=== PATIENT | female | born 1935 | race Caucasian/White ===

== ENCOUNTER 2017-06-08 11:00 | Outpatient (RCR) | payer MEDICARE, SELFPAY ==
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
--- NOTE | 2017-05-12 10:37 | HP.PTDCSUM_ITS ---
HP - PT D/C Summary It has been my pleasure to treat RAE SANDHU under orders from Mary Krueger DO , for the diagnosis of BACK PAIN for a total of 8 visit(s). Discharge Date: Please see the following information for a summary of their discharge status. - Subjective Subjective: PATIENT REPORTS SHE HAS BEEN ON HER FEET A LOT THIS WEEK AND BY THE END OF THE DAY SHE HAS MILD LOW BACK PAIN LEFT > RIGHT. PATIENT REPORTS SHE HAS A HEP AND SHE KNOWS HOW TO DO THEM AND THEY ARE HELPING. SHE REPORTS THE MACHINES FEEL GOOD AND SHE WANTS TO BE MORE ACTIVE A HEALTH AND WELLNESS MEMBER NOW. LBP AT ITS WORST IS 6/10 WITH THINGS LIKE VACUUMING AND RUNNING UP AND DOWN THE STAIRS. NO LONGER HAVING JABBING PAINS IN THIGH. - Pain LBP Pain Intensity (Out of 10): 0 - Overall Improvement % Improvement: 30 - Objective Objective/Function: UPON EXAM: Motor deficit: NEGRITO LE'S 5/5 WITH MMT. Sensory deficit: NEGRITO LE LIGHT TOUCH SENSATION INTACT AND SYMMETRICAL. ROM deficit: WFL. Reflexes: 1/2 NEGRITO. Dural Signs: NEGATIVE NEGRITO LE'S. Lumbar mvmt loss: flex - MIN. ext - MOD TO NASEEM. R SG - MOD. L SG - MOD. Core strength: POOR. Palpation: PATIENT IS NOT TENDER WITH PALPATION OF THE LUMBAR SPINE OR SACRAM BUT HER PARASPINALS ARE VERY TIGHT. PATIENT IS MAKING GOOD PROGRESS BUT IS NOT INDEP WITH A GYM EX PROGRAM YET. RECOMMEND CONTINUED FORMAL PT FOR 3-4 VISITS TO PROGRESS AND REINFORCE SAFE GYM PROGRAM A HEALTH AND WELLNESS MEMBER. PATIENT DENIES PAIN WITH ALL TESTING TODAY. - Goals Goal 1:: DECREASE C/O LOW BACK AND RIGHT THIGH PAIN Goal Progress: Progressing Goal 2:: IMPROVE STANDING, WALKING, YARD WORK, HOUSEWORK, AND VOLUNTEER WORK FUNCTION Goal Progress: Progressing Goal 3:: INSTRUCT IN PROPHYLAXIS Goal Progress: Progressing - Plan Plan: CONT PT X 4 VISITS FOR GYM EX AND HEP PROGRESSION TO HELP MEET SET GOALS PER ORIGINAL POC. - D/C Information If there are questions or concerns regarding this patient's physical therapy, please feel free to call me at [phone]. Thank you for the referral of this patient. Sincerely, Isabel Pink
--- NOTE | 2017-05-12 10:50 | HP.PTREVAL_ITS ---
Mary Krueger, DO, It has been my pleasure to treat RAE SANDHU over the last 8 visits for BACK PAIN. Please see the progress note below for an update on the physical therapy plan of care! Subjective: PATIENT REPORTS SHE HAS BEEN ON HER FEET A LOT THIS WEEK AND BY THE END OF THE DAY SHE HAS MILD LOW BACK PAIN LEFT > RIGHT. PATIENT REPORTS SHE HAS A HEP AND SHE KNOWS HOW TO DO THEM AND THEY ARE HELPING. SHE REPORTS THE MACHINES FEEL GOOD AND SHE WANTS TO BE MORE ACTIVE A HEALTH AND WELLNESS MEMBER NOW. LBP AT ITS WORST IS 6/10 WITH THINGS LIKE VACUUMING AND RUNNING UP AND DOWN THE STAIRS. NO LONGER HAVING JABBING PAINS IN THIGH. Objective/Function: UPON EXAM: Motor deficit: NEGRITO LE'S 5/5 WITH MMT. Sensory deficit: NEGRITO LE LIGHT TOUCH SENSATION INTACT AND SYMMETRICAL. ROM deficit: WFL. Reflexes: 1/2 NEGRITO. Dural Signs: NEGATIVE NEGRITO LE'S. Lumbar mvmt loss: flex - MIN. ext - MOD TO NASEEM. R SG - MOD. L SG - MOD. Core strength: POOR. Palpation: PATIENT IS NOT TENDER WITH PALPATION OF THE LUMBAR SPINE OR SACRAM BUT HER PARASPINALS ARE VERY TIGHT. PATIENT IS MAKING GOOD PROGRESS BUT IS NOT INDEP WITH A GYM EX PROGRAM YET. RECOMMEND CONTINUED FORMAL PT FOR 3-4 VISITS TO PROGRESS AND REINFORCE SAFE GYM PROGRAM A HEALTH AND WELLNESS MEMBER. PATIENT DENIES PAIN WITH ALL TESTING TODAY. Plan Plan: CONT PT X 4 VISITS FOR GYM EX AND HEP PROGRESSION TO HELP MEET SET GOALS PER ORIGINAL POC. Goals Goal 1:: DECREASE C/O LOW BACK AND RIGHT THIGH PAIN Goal Time Frame: 4-6 Weeks Goal Progress: Progressing Goal 2:: IMPROVE STANDING, WALKING, YARD WORK, HOUSEWORK, AND VOLUNTEER WORK FUNCTION Goal Time Frame: 4-6 Weeks Goal Progress: Progressing Goal 3:: INSTRUCT IN PROPHYLAXIS Goal Time Frame: 4-6 Weeks Goal Progress: Progressing Anticipated Interventions Patient/Client Instruction: Educate patient on: Condition, Plan of Care, Risk Factors, Benefits of Fitness Program For the Purpose of:: To improve self management Therapeutic Exercise to Include: Strength training, Body mechanics, Postural training, Dynamic Lumbar Stabilization For the Purpose of:: To improve ability of physical actions for home/community/ work/leisure Cryotherapy (ice pack, ice massage): Yes Thermo therapy (hot pack): Yes Ultrasound (thermal/non thermal): Yes For the Purpose of:: To decrease pain, To decrease swelling/inflammation, To increase ROM Please do not hesitate to contact me at [phone] by phone or Fax: if you have questions or concerns regarding this new plan of care! Sincerely, Isabel Pink
--- NOTE | 2017-06-08 11:39 | HP.PTDCSUM_ITS ---
HP - PT D/C Summary It has been my pleasure to treat RAE SANDHU under orders from Mary Krueger DO , for the diagnosis of BACK PAIN for a total of 15 visit(s). Discharge Date: 06/08/17 Please see the following information for a summary of their discharge status. - Subjective Subjective: PATIENT REPORTS SHE IS DOING REALLY GOOD - Pain LBP Pain Intensity (Out of 10): 0 - Overall Improvement % Improvement: 80 - Objective Objective/Function: ALL GOALS MET. PATIENT IS DOING MUCH BETTER AND READY TO START INDEP EX A HEALTH AND WELLNESS MEMBER. - Goals Goal 1:: DECREASE C/O LOW BACK AND RIGHT THIGH PAIN Goal Progress: Progressing Goal 2:: IMPROVE STANDING, WALKING, YARD WORK, HOUSEWORK, AND VOLUNTEER WORK FUNCTION Goal Progress: Progressing Goal 3:: INSTRUCT IN PROPHYLAXIS Goal Progress: Progressing - Plan Plan: D/C TO INDEP EX. PATIENT AGREEABLE. - D/C Information If there are questions or concerns regarding this patient's physical therapy, please feel free to call me at [phone]. Thank you for the referral of this patient. Sincerely, Isabel Pink
== END 2017-06-08 19:00 | disposition home or self-care (01) ==
LOC: PT 11:00
PROVIDERS: Family Provider Nurse Practitioner; PCP Nurse Practitioner; Visit Provider Internal Medicine
DX: M54.9 Dorsalgia, unspecified (principal)
CPT/HCPCS: 97110; 97113; 97162; 97530; G8978; G8979

== ENCOUNTER → 2017-09-13 08:15 | Outpatient (CLI) | payer MEDICARE, SELFPAY ==
--- NOTE | 2017-09-13 08:17 | BD_ITS ---
STUDY: DUAL ENERGY X-RAY ABSORPTIOMETRY / DXA REASON FOR EXAM: Female, 82 years old. Postmenopausal female. Past history of hormone therapy. TECHNIQUE: Bone Mineral Density (BMD) measurements of lumbar spine and bilateral hips were obtained. COMPARISON: None. FINDINGS: Lumbar Spine (L1-L4): g/cm2 (0.861) / T-score (-2.7) / Z-score (-0.8) Findings are suggestive of osteoporosis with a high fracture risk. Left Femur Total: g/cm2 (0.793) / T-score (-1.7) / Z-score (0.4) Left Femoral Neck: g/cm2 (0.648) / T-score (-2.8) / Z-score (0.6) Right Femur Total: g/cm2 (0.811) / T-score (-1.6) / Z-score (0.5) Right Femoral Neck: g/cm2 (0.692) / T-score (-2.5) / Z-score (0.3) BD/Dexa Bone Density Study IMPRESSION: The patient is considered osteoporotic as outlined below according to World Eliseo Organization (WHO) criteria with a high fracture risk. Reference Information: The T-score is the number of standard deviations above or below the standard which is normal for young adults at their peak bone mineral density. The World Health Organization (WHO) interprets the T-scores as follows: Above -1 Normal bone density Between -1 and -2.5 Osteopenia Equal to / or below -2.5 Osteoporosis As a practical clinical guideline, osteopenia may be graded as follows: Mild -1 through -1.5 Moderate -1.6 through -2.0 Severe -2.1 through -2.4 The Z-score is the number of standard deviations above or below age-matched controls. A Z-score of less than -1.5 would be considered abnormal. References: 1. NIH Osteoporosis and Related Bone Diseases http://www.osteo.org 2. International Society for Clinical Densitometry http://www.iscd.org 3. National Osteoporosis Foundation http://www.nof.org Electronically Signed: Stuart Barrientos DO at 8:54 EDT Tel [phone], Service support ,
--- NOTE | 2017-09-13 08:17 | BI_ITS ---
MAMMOGRAPHY - BILATERAL SCREENING REASON FOR EXAM: Female, 82 years old. Routine annual screening examination. PERTINENT HISTORY: NO FAM HX - RT FATTY TUMOR REMOVED AGE 26 - BILAT INVERTED NIPPLES ALWAYS TECHNIQUE: Digital bilateral breast shona (3D mammographic acquisition) in the CC and MLO projections. 2-D mediolateral oblique (MLO) and craniocaudad (CC) views of both breasts were obtained. CAD: Full Field Digital Mammography with Computer Added Detection was performed. COMPARISON: None. FINDINGS: Breast Composition: The breasts are heterogeneously dense, which may obscure small masses. There are no dominant masses or suspicious calcifications. No other significant abnormalities are identified. BI/SCREENING MAMM (CAD), BILAT IMPRESSION: Stable bilateral screening mammogram. Yearly follow-up mammogram recommended. (A) ASSESSMENT CATEGORY: BIRADS Category 2: Benign. A letter regarding these results will be sent to the patient by the facility within 30 days. Approximately 10% of breast cancers are not detected by mammography. A normal mammogram should not delay biopsy of a clinically suspicious abnormality. [id number] Electronically Signed: Alexandria Rowan MD at 16:16 EDT Tel , Service support ,
== END ==
PROVIDERS: Family Provider Internal Medicine; PCP Internal Medicine; Visit Provider Internal Medicine
DX: Z12.31 Encounter for screening mammogram for malignant neoplasm of breast (principal); Z78.0 Asymptomatic menopausal state
CPT/HCPCS: 77063; 77067; 77080

== ENCOUNTER → 2017-10-23 12:52 | Outpatient (CLI) | payer MEDICARE, SELFPAY ==
--- NOTE | 2017-10-23 12:52 | DT_ITS ---
This patient was seen during an EMR downtime October 16, 2017 - October 23, 2017. This patient may have a combination of paper and electronic documentation or all paper documentation. All documentation is viewable within the e-chart portion of [facility] for each patient visit.
[2017-10-23 15:17] LABS: Absolute Lymphocyte Count 2.92 X10^3/ul (0.83-4.51); Basophil% 1.3 % (0-1); Eosinophil# 0.22 X10^3/uL; Eosinophils% 2.8 % (0-5); Hematocrit 41.7 % (37-47); Hemoglobin 14.3 g/dl (12.0-15.0); Lymphocyte # 2.92 X10^3/ul (4.0); Mean Corp Hgb Conc 34.3 g/gl (32-36); Mean Corpuscular Hgb 32.2 pg (27.0-32.0); Mean Corpuscular Volume 93.9 fL (81-99); Monocyte# 0.68 X10^3/uL; Monocyte% 8.6 % (0-10); Neutrophil # 3.97 X10^3/uL (2.7-7.7); Neutrophil % 50.2 % (47-70); Platelet Count 341 K/mm3 (150-450); RBC Distribution Width CV 12.7 % (11.6-14.6); RBC Distribution Width SD 43.4 fl (35.1-43.9); Red Blood Count 4.44 M/mm3 (4.2-5.4); White Blood Count 7.9 K/mm3 (4.4-11.0)
[2017-10-23 15:19] LABS: POSITIVE COUNT NO; POSITIVE DIFFERENTIAL NO; POSITIVE MORPHOLOGY NO
[2017-10-23 15:48] LABS: Vitamin B12 436 pg/mL (211-911)
[2017-10-23 15:58] LABS: AST(SGOT) 15 U/L (15-37); Alanine Aminotransfer ALT/SGPT 19 U/L (13-56); Albumin, Serum 3.8 g/dL (3.2-5.0); Alkaline Phosphatase 60 U/L (45-117); Anion Gap 10 (5-15); BUN 27 mg/dL (7-18); BUN/Creat Ratio 22.9 RATIO (10-20); Calcium,Total 9.6 mg/dL (8.5-10.1); Chloride 109 mmol/L (98-107); Creatinine, Serum 1.18 mg/dL (0.55-1.02); EST Glomerular Filtration Rate 47 mL/min (>60); Est Glom Filt Rate - Afr Amer 56 mL/min (>60); Globulin 3.7 g/dL (2.2-4.2); Glucose 73 mg/dL (74-106); Potassium 3.9 mmol/L (3.5-5.1); Protein, Total 7.5 g/dL (6.4-8.2); Sodium Level 143 mmol/L (136-145); Thyroid Stim Hormone (TSH) 2.75 uIU/mL (0.358-3.74)
== END ==
PROVIDERS: Family Provider Internal Medicine; PCP Internal Medicine; Visit Provider Internal Medicine
DX: R25.1 Tremor, unspecified (principal)
CPT/HCPCS: 36415; 80053; 82607; 84443; 85025

== ENCOUNTER → 2018-02-27 08:45 | Outpatient (CLI) | payer MEDICARE, SELFPAY ==
[2018-02-27 10:11] LABS: AST(SGOT) 12 U/L (15-37); Alanine Aminotransfer ALT/SGPT 21 U/L (13-56); Albumin, Serum 3.5 g/dL (3.2-5.0); Alkaline Phosphatase 70 U/L (45-117); Cholesterol 139 mg/dL (200); Globulin 3.5 g/dL (2.2-4.2); High Density Lipoprotein 55 mg/dL; Triglycerides 85 mg/dL; Very Low Density Lipoprotein 17 mg/dL (5-40)
== END ==
PROVIDERS: Family Provider Internal Medicine; PCP Internal Medicine; Referring Provider Internal Medicine Cardiovascular Disease; Visit Provider Internal Medicine Cardiovascular Disease
DX: I65.23 Occlusion and stenosis of bilateral carotid arteries (principal); E78.5 Hyperlipidemia, unspecified
CPT/HCPCS: 36415; 80061; 80076

== ENCOUNTER → 2018-03-27 08:26 | Outpatient (CLI) | payer MEDICARE, SELFPAY ==
--- NOTE | 2018-03-27 08:28 | CDU_ITS ---
Reason For Study: Bilateral carotid artery stenosis Rt. Velocities/BP Lt. Velocities/BP Prox CCA 72.7/15.8 cm/sec. Prox CCA 71.9/15.7 cm/sec. Mid CCA 66.3/18.2 cm/sec. Mid CCA 61.3/17.3 cm/sec. Dist CCA 65.1/17 cm/sec. Dist CCA 56.6/15.3 cm/sec. Prox ICA 56.7/17.1 cm/sec. Prox ICA 61.7/14.5 cm/sec. Mid ICA 50.5/14.8 cm/sec. Mid ICA 60.6/19.5 cm/sec. Dist ICA 88.5/22.9 cm/sec. Dist ICA 76.8/25.6 cm/sec. Rt. ICA/CCA = 1.33. Lt. ICA/CCA = 1.25. Prox ECA 83.3/12.3 cm/sec. Prox ECA 53.8/15.6 cm/sec. Rt. Vert. 45.2/13.4 cm/sec. Lt. Vert. 37.3/14.1 cm/sec. Right Extracranial There is intimal thickening but no significant atherosclerotic plaque noted in the right common carotid artery. There is intimal thickening but no significant atherosclerotic plaque noted in the right internal carotid artery. There is no significant atherosclerotic plaque noted in the right external carotid artery. Antegrade flow is noted in the right vertebral artery. Left Extracranial There is intimal thickening but no significant atherosclerotic plaque noted in the left common carotid artery. There is heterogeneous, irregular atherosclerotic plaque noted in the left internal carotid artery. There is intimal thickening but no significant atherosclerotic plaque noted in the left external carotid artery. The left external carotid artery is not well visualized. Antegrade flow is noted in the left vertebral artery. Procedure Carotid Duplex [id number]. Exam performed in department. Interpretation Summary Mild (<50%) stenosis right extracranial internal carotid. Mild (<50%) stenosis left extracranial internal carotid. Flow within the vertebral arteries is antegrade bilaterally. Ordering Physician: Mary Krueger Referring Physician: Mary Krueger Performed By: Nereida Kamara RVT and Student
== END ==
PROVIDERS: Family Provider Internal Medicine; PCP Internal Medicine; Referring Provider Internal Medicine; Visit Provider Internal Medicine
DX: I65.23 Occlusion and stenosis of bilateral carotid arteries (principal)
CPT/HCPCS: 93880

== ENCOUNTER → 2018-04-18 11:36 | Outpatient (CLI) | payer MEDICARE, SELFPAY ==
--- NOTE | 2018-04-18 11:39 | RAD_ITS ---
STUDY: X-RAY CHEST REASON FOR EXAM: Female, 83 years old. One-week history of wheezing and cough. TECHNIQUE: PA and lateral views of the chest. COMPARISON: Comparison is made with prior study dated August 12, 2005. FINDINGS: Hyperinflation. Scattered calcified granulomas. Increased linear markings in the right midlung. This may represent early atelectasis and/or early infiltrate. Follow-up is recommended. Scattered calcified granulomas. Blunting of the costophrenic angles posteriorly. Normal size heart. Normal mediastinum and jose. Normal visualized pulmonary arteries. There is atherosclerotic calcification of the aortic arch with tortuosity. There are diffuse degenerative changes of the visualized thoracic spine. Normal visualized ribs, clavicles, and shoulders. There is no demonstrated abnormality of the visualized soft tissue structures of the upper abdomen. RAD/Chest PA and Lateral IMPRESSION: Increased markings in the right mid lung. Follow-up is recommended. Electronically Signed: Huy Barclay MD at 12:44 EST Tel [phone], Service support ,
== END ==
PROVIDERS: Family Provider Internal Medicine; PCP Internal Medicine; Referring Provider Internal Medicine; Visit Provider Internal Medicine
DX: R05 Cough (principal)
CPT/HCPCS: 71046

== ENCOUNTER → 2018-08-06 09:42 | Outpatient (CLI) | payer MEDICARE, SELFPAY ==
--- NOTE | 2018-08-06 09:47 | NM_ITS ---
CLINICAL: 83-year-old female with reported history of clinical hyperparathyroidism. 99m Tc SESTAMIBI DUAL PHASE PARATHYROID SCINTIGRAPHY COMPARISON: None available FINDINGS: Following the intravenous administration of 25.7 mCi of 99m Tc sestamibi, image acquisitions of the anterior neck at 20 minutes and 2.0 hours post radiopharmaceutical provision reveal: 1. Immediate static blood pool acquisitions demonstrate uniform distribution of the radiopharmaceutical throughout the right-left lobes of a U-shaped thyroid gland. 2. Delayed images depict symmetric and incomplete washout of the radiotracer from the visualized right-left thyroid parenchyma with no regions of focal persistent tracer uptake identified. NM/Parathyroid Scan IMPRESSION: 1. NEGATIVE 99m Tc SESTAMIBI PARATHYROID IMAGING DUAL PHASE EXAMINATION. 2. There is no definitive scintigraphic evidence of parathyroid adenoma on the current evaluation. Electronically Signed: Js Elizabeth DO at 23:22 EDT Tel , Service support ,
== END ==
PROVIDERS: Family Provider Internal Medicine; PCP Internal Medicine; Referring Provider Internal Medicine; Visit Provider Internal Medicine
DX: E21.3 Hyperparathyroidism, unspecified (principal)
CPT/HCPCS: 78070; A9500

== ENCOUNTER → 2018-09-14 | Outpatient (CLI) | payer MEDICARE, SELFPAY ==
[2018-02-02 09:52] VITALS: BMI 29.0
--- NOTE | 2018-09-14 10:49 | BI_ITS ---
MAMMOGRAPHY - BILATERAL SCREENING 3-D TOMOSYNTHESIS REASON FOR EXAM: Female, 83 years old. Bilateral Screening 3-D tomosynthesis PERTINENT HISTORY: No significant family history. TECHNIQUE: 2-D mammograms and 3-D Tomosynthesis of the breast (s) were performed. CAD was performed. COMPARISON: September 13, 2017. FINDINGS: The breast composition is composed of scattered fibroglandular density. Scattered benign calcifications are seen. No dense spiculated masses or suspicious microcalcifications are identified. No architectural distortion is identified. There is no skin thickening or retraction. There has been no significant change since the prior study. BI/SCREENING MAMM (CAD), BILAT IMPRESSION: No mammographic signs of malignancy. Routine yearly mammograms recommended. ASSESSMENT CATEGORY: BIRADS Category 1: Negative. A letter regarding these results will be sent to the patient by the facility within 30 days. FOLLOW UP RECOMMENDATION: Yearly follow up mammogram recommended. (A) Approximately 10% of breast cancers are not detected by mammography. A normal mammogram should not delay biopsy of a clinically suspicious abnormality. Electronically Signed: Johny Best MD at 13:30 EDT , Service support ,
== END | disposition home or self-care (01) ==
LOC: OPBI 10:47
PROVIDERS: Family Provider Internal Medicine; PCP Internal Medicine; Referring Provider Internal Medicine; Visit Provider Internal Medicine
DX: Z12.31 Encounter for screening mammogram for malignant neoplasm of breast (principal)
CPT/HCPCS: 77063; 77067

== ENCOUNTER → 2019-04-22 09:39 | Outpatient (CLI) | payer MEDICARE, SELFPAY ==
[2019-03-08 08:57] VITALS: BMI 28.3
--- NOTE | 2019-04-22 09:41 | CDU_ITS ---
Reason For Study: Bilateral carotid artery stenosis Rt. Velocities/BP Lt. Velocities/BP Prox CCA 80.4/6.7 cm/sec. Prox CCA 68.4/11.3 cm/sec. Mid CCA 70.4/11.4 cm/sec. Mid CCA 56.4/12.4 cm/sec. Dist CCA 61.8/12.6 cm/sec. Dist CCA 59.7/14.6 cm/sec. Prox ICA 64.2/12.6 cm/sec. Prox ICA 36.9/10.7 cm/sec. Mid ICA 52/15.1 cm/sec. Mid ICA 101.1/23.7 cm/sec. Dist ICA 98.6/28.6 cm/sec. Dist ICA 79/22.5 cm/sec. Rt. ICA/CCA = 1.4. Lt. ICA/CCA = 1.7. Prox ECA 87.6/4.1 cm/sec. Prox ECA 63/12.4 cm/sec. Rt. Vert. 52/16.8 cm/sec. Lt. Vert. 39/12.6 cm/sec. Right Extracranial There is intimal thickening but no significant atherosclerotic plaque noted in the right common carotid artery. There is intimal thickening but no significant atherosclerotic plaque noted in the right internal carotid artery. There is intimal thickening but no significant atherosclerotic plaque noted in the right external carotid artery. Antegrade flow is noted in the right vertebral artery. Left Extracranial There is intimal thickening but no significant atherosclerotic plaque noted in the left common carotid artery. There is heterogeneous, irregular atherosclerotic plaque noted in the left internal carotid artery. There is intimal thickening but no significant atherosclerotic plaque noted in the left external carotid artery. Antegrade flow is noted in the left vertebral artery. Procedure Carotid Duplex [id number]. Exam performed in department. Interpretation Summary Mild (<50%) stenosis right extracranial internal carotid. Mild (<50%) stenosis left extracranial internal carotid. Flow within the vertebral arteries is antegrade bilaterally. Ordering Physician: Mary Krueger Referring Physician: Mary Krueger Performed By: Ning Castellanos RVT
== END ==
PROVIDERS: Family Provider Internal Medicine; PCP Internal Medicine; Referring Provider Internal Medicine; Visit Provider Internal Medicine
DX: I65.23 Occlusion and stenosis of bilateral carotid arteries (principal)
CPT/HCPCS: 93880

== ENCOUNTER → 2019-07-29 | Outpatient (CLI) | payer MEDICARE, SELFPAY ==
[2019-03-08 08:57] VITALS: BMI 28.3
[2019-07-29 09:38] LABS: Absolute Lymphocyte Count 3.77 X10^3/uL (0.83-4.51); Absolute Neutrophil Count 3.9 X10^3/uL (2.0-7.7); Basophil# 0.07 X10^3/uL; Basophil% 0.8 % (0-1); Eosinophils% 1.2 % (0-5); Hematocrit 35.2 % (37-47); Hemoglobin 10.8 g/dL (12.0-15.0); Lymphocyte # 3.77 X10^3/ul (4.0); Lymphocyte % 43.8 % (19-41); Mean Corp Hgb Conc 30.7 g/dL (32-36); Mean Corpuscular Hgb 25.6 pg (27.0-32.0); Mean Corpuscular Volume 83.4 fL (81-99); Mean Platelet Vol. 9.6 fl (6.2-12.0); Monocyte# 0.74 X10^3/uL; Monocyte% 8.6 % (0-10); NRBC Flagged by Analyzer 0 % (0-5); Neutrophil # 3.91 X10^3/uL (2.7-7.7); Neutrophil % 45.5 % (47-70); Platelet Count 403 K/mm3 (150-450); RBC Distribution Width CV 15.9 % (11.6-14.6); RBC Distribution Width SD 47.7 fl (35.1-43.9); Red Blood Count 4.22 M/mm3 (4.2-5.4); White Blood Count 8.6 K/mm3 (4.4-11.0)
[2019-07-29 09:58] LABS: ALB/GLOB Ratio 0.8 RATIO (0.9-2.4); AST(SGOT) 11 U/L (15-37); Alanine Aminotransfer ALT/SGPT 7 U/L (13-56); Albumin, Serum 3.1 g/dL (3.2-5.0); Alkaline Phosphatase 82 U/L (45-117); BUN 17 mg/dL (7-18); Calcium,Total 9.7 mg/dL (8.5-10.1); Creatinine, Serum 1.13 mg/dL (0.55-1.02); EST Glomerular Filtration Rate 49 mL/min (>60); Est Glom Filt Rate - Afr Amer 59 mL/min (>60); Globulin 3.9 g/dL (2.2-4.2); Glucose 90 mg/dL (74-106)
[2019-07-29 09:59] LABS: Anion Gap 6 (5-15); Chloride 106 mmol/L (98-107); Potassium 3.4 mmol/L (3.5-5.1); Sodium Level 139 mmol/L (136-145)
== END | disposition home or self-care (01) ==
LOC: LAB 08:50
PROVIDERS: PCP Internal Medicine; Referring Provider Internal Medicine; Visit Provider Internal Medicine
DX: G20 Parkinson's disease (principal)
CPT/HCPCS: 36415; 80053; 85025

== ENCOUNTER → 2020-02-03 | Outpatient (CLI) | payer MEDICARE, SELFPAY ==
[2019-03-08 08:57] VITALS: BMI 28.3
--- NOTE | 2020-02-03 14:01 | VDLE_ITS ---
Reason For Study: Rt Leg Swelling RIGHT LEFT GSV is normal. CFV is compressible, spontaneous, phasic, CFV is compressible, spontaneous, phasic, competent, and demonstrates normal competent and demonstrates normal augmentation. augmentation. FV is compressible, spontaneous, phasic, competent and demonstrates normal augmentation. POP V is compressible, spontaneous, phasic, competent and demonstrates normal augmentation. T/P Trunk is compressible. PTV is compressible. RT PerV is compressible. Rt GastrocV is dilated and non compressible consistent with acute DVT. Procedure Exam performed in department. A preliminary report was called and/or faxed to Sudheer/Dr. Krueger. Interpretation Summary Acute deep venous thrombosis right gastrocnemius vein. No evidence for proximal progression Patent, compressible right great saphenous vein Normal flow patterns left common femoral vein Ordering Physician: Mary Krueger Referring Physician: Mary Krueger Performed By: Bonny Edwards, FELECIA, RVT
== END | disposition home or self-care (01) ==
LOC: CVS 14:00
PROVIDERS: PCP Internal Medicine; Referring Provider Internal Medicine; Visit Provider Internal Medicine
DX: M79.89 Other specified soft tissue disorders (principal)
CPT/HCPCS: 93971

== ENCOUNTER → 2020-02-13 | Outpatient (CLI) | payer MEDICARE, SELFPAY ==
[2019-03-08 08:57] VITALS: BMI 28.3
--- NOTE | 2020-02-13 11:14 | VDLE_ITS ---
Reason For Study: DVT RIGHT GSV is normal. CFV is compressible, spontaneous, phasic, competent and demonstrates normal augmentation. FV is compressible, spontaneous, phasic, competent and demonstrates normal augmentation. POP V is compressible, spontaneous, phasic, competent and demonstrates normal augmentation. T/P Trunk is compressible. PTV is compressible. RT PerV is compressible. Rt GastrocV is dilated and non compressible consistent with acute DVT. Procedure Exam performed in department. Compared to 02/03/2020. A preliminary report was called and/or faxed to [facility]. Interpretation Summary Acute deep vein thrombosis is noted in the right gastrocnemius vein. The remainder of the right lower extremity deep venous system is patent and compressible. Valvular competence appears intact within the proximal deep venous system on the right . The right great saphenous vein appears patent and compressible segmentally. There has been no significant change since a prior study on 02/03/2020. Ordering Physician: Mary Krueger Referring Physician: Mary Krueger Performed By: Ning Castellanos RVT
== END | disposition home or self-care (01) ==
LOC: CVS 11:10
PROVIDERS: PCP Internal Medicine; Referring Provider Internal Medicine; Visit Provider Internal Medicine
DX: I82.491 Acute embolism and thrombosis of other specified deep vein of right lower extremity (principal)
CPT/HCPCS: 93971

== ENCOUNTER → 2020-02-27 | Outpatient (CLI) | payer MEDICARE, SELFPAY ==
[2019-03-08 08:57] VITALS: BMI 28.3
--- NOTE | 2020-02-27 14:20 | CT_ITS ---
STUDY: CT ABDOMEN AND PELVIS WITH AND WITHOUT CONTRAST REASON FOR EXAM: Female, 85 years old. GROSS HEMATURIA X 1 WK AFTER STARTING ELIQUIS FOR DVT, SPLENECTOMY, ADENOCARCINOMA OF RT CHEEK RADIATION DOSAGE (If Supplied By Facility): CTDIvol = ( 11.43 ) mGy, DLP = ( 1181.98 ) mGycm TECHNIQUE: Transaxial images were obtained from the dome of the diaphragm to the symphysis pubis without oral contrast. IV 100mL [id number]-[id number] was administered. Sagittal and coronal images were reconstructed. Individualized dose optimization techniques were used for this CT. COMPARISON: None. FINDINGS: The visualized lung bases are unremarkable. The visualized portions of the heart are within normal limits. Normal liver. Normal gallbladder and extrahepatic biliary system. The patient is status post splenectomy. Normal pancreas. There is a small, circumscribed, smooth, low attenuation right adrenal mass, consistent with an adrenal adenoma. This measures 1.8 cm x 2.1 cm. There is a 7.1 mm hypodense nodule in the medial limb of the left adrenal gland suggestive of a small adenoma. Punctate calcification in the upper pole calyx of the right kidney. Punctate calculus in the lower pole calyx of the left kidney. Normal visualized stomach. Normal small intestine. Normal colon. The appendix is visualized and appears normal. There is scattered atherosclerotic calcification of the abdominal aorta, without a demonstrated aneurysm. Normal inferior vena cava. Normal retroperitoneum. Normal urinary bladder. Normal abdominal wall. 50% loss of height of the L5 vertebrae. Mild loss of height of the superior endplate of the L3 vertebrae. CT/CT Abd/Pelvis W/WO Contrast IMPRESSION: Tiny bilateral nonobstructive intrarenal calculi. Findings suggestive of bilateral adrenal adenomas larger on the right side. Electronically Signed: Huy Barclay, at 15:19 EDT , Service support ,
== END | disposition home or self-care (01) ==
PROVIDERS: PCP Internal Medicine; Referring Provider Internal Medicine; Visit Provider Internal Medicine
DX: R31.0 Gross hematuria (principal)
CPT/HCPCS: 74178; Q9967

== ENCOUNTER → 2020-03-09 | Outpatient (CLI) | payer MEDICARE, SELFPAY ==
[2019-03-08 08:57] VITALS: BMI 28.3
[2020-03-02 11:28] VITALS: BMI 23.4
--- NOTE | 2020-03-09 09:55 | VDLE_ITS ---
Reason For Study: DVT RIGHT GSV is normal. CFV is compressible, spontaneous, phasic, competent and demonstrates normal augmentation. FV is compressible, spontaneous, phasic, competent and demonstrates normal augmentation. POP V is compressible, spontaneous, phasic, competent and demonstrates normal augmentation. T/P Trunk is compressible. PTV is compressible. RT PerV is compressible. GastrocV is partially compressible with bright intraluminal echoes consistent with Chronic DVT. Procedure This is a venous duplex using B-mode, color flow and spectral Doppler. Exam performed in department. A preliminary report was called and/or faxed to [facility]. Interpretation Summary Chronic venous changes are noted in the right gastrocnemius vein, which is partially compressible and demonstrates bright intraluminal echogenicity. The remainder of the right lower extremity deep venous system is patent and compressible. Valvular competence appears intact within the proximal deep venous system on the right . The right great saphenous vein appears patent and compressible segmentally. There has been improvement since a prior study on 02/13/2020, with resolution of the acute deep vein thrombosis in the right gastrocnemius vein. Ordering Physician: Mary Krueger Referring Physician: Mary Krueger Performed By: Ning Castellanos RVT
== END | disposition home or self-care (01) ==
PROVIDERS: PCP Internal Medicine; Referring Provider Internal Medicine; Visit Provider Internal Medicine
DX: I82.4Z1 Acute embolism and thrombosis of unspecified deep veins of right distal lower extremity (principal)
CPT/HCPCS: 93971

== ENCOUNTER 2020-03-15 15:46 | Emergency (ER) | payer MEDICARE, SELFPAY ==
[2020-03-02 11:28] VITALS: BMI 23.4
[2020-03-15 15:47] VITALS: BP 131/68; PULSE 80; RESP 16; TEMP 36.8; O2SAT 99; BMI 24.1
--- NOTE | 2020-03-15 16:16 | RAD_ITS ---
STUDY: X-RAY - LEFT WRIST REASON FOR EXAM: Female, 85 years old. fell yesterday, pain radial side, bruising TECHNIQUE: 3 view(s) of the wrist were obtained. COMPARISON: None. FINDINGS: Radial styloid fracture. Normal radiocarpal articulation. Normal distal radioulnar articulation. Normal carpal bones. Normal carpal articulations. There is degenerative arthrosis of the carpometacarpal articulation of the thumb. Normal second through fifth carpometacarpal articulations. Normal visualized metacarpal bones. The soft tissue structures are unremarkable. RAD/Wrist min 3 Views IMPRESSION: Radial styloid fracture. Electronically Signed: Harris Ga MD at 17:05 EST Tel , Service support ,
--- NOTE | 2020-03-15 16:39 | ED.DCSUM_ITS ---
History of Present Illness Chief Complaint: Fall Informant: Patient, Family Occurred: Yesterday Mechanism/Context: Trip Usually ambulates: Without assistance Narrative: Patient is an 85-year-old female with history of Parkinson's and tremor presenting with left wrist pain after mechanical fall. Patient tripped on the sole of her shoe yesterday and fell backwards. She attempted to catch her self with her left hand. She is left-hand dominant. She did not hit her head and had no loss of consciousness. She is not on any anticoagulation. Since then she is had bruising, swelling and pain of her left wrist. No other complaints at this time. Spoke with her primary care doctor, Dr. Krueger, who recommend she come in to be evaluated to rule out fracture. Past Medical History - Allergies and Home Meds Allergies/Adverse Reactions: Allergies Penicillins Allergy (Unknown, Verified 03/15/20 15:50) Unknown Primary Care Physician: Mary Krueger DO [Primary Care Provider] - Get Schwab DO [STAFF PHYSICIAN] - Past Medical History: - - Hypertension, hyperlipidemia, asthma, Parkinson's disease, hypothyroid Surgical History: noncontributory Lives: With Family Smoking Status: Never smoker Review of Systems General: Denies: Chills, Fever, Sweats Eyes: Denies: Visual changes - bilaterally, Diplopia ENT: Denies: Rhinorrhea, Sore throat Cardiovascular: Denies: Chest pain, Palpitations Respiratory: Denies: Dyspnea, Cough, Dyspnea on exertion Gastrointestinal: Denies: Abdominal pain, Nausea, Vomiting, Diarrhea, Melena, Hematochezia Genitourinary: Denies: Dysuria, Hematuria, Frequency Musculoskeletal: Reports: Swelling - left wrist , Extremity Pain - left wrist . Denies: Back pain Skin: Reports: - - bruising left wrist . Denies: Rash, Wounds Neurological: Denies: Headache, Weakness, Numbness Physical Exam Vital Signs/Narrative: Vital Signs Temp Pulse Resp BP Pulse Ox 03/15/20 15:47 98.3 F 80 16 131/68 H 99 Inital Vital Signs reviewed: Yes General: Well nourished, Well developed Head: Normocephalic, Atraumatic Eyes: Perrl, EOMI ENT: TM's clear, No hemotympanum or drainage, No trauma. Negative for: Hemotympanum, Nasal trauma, Nasal septal hematoma Neck: Nontender, Full ROM Cardiovascular: Regular rate, Regular rhythm, No murmurs Respiratory: No distress, CTA bilaterally, Chest nontender Abdomen: Soft, Nontender, Nondistended, Normal bowel sounds Back: Nontender Extremeties: Extremities are of equal length. No obvious deformity. Soft tissue swelling and mild tenderness palpation over the radial aspect of the distal forearm/wrist. Range of motion slightly limited secondary to pain. 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 Tenderness at the anatomical snuffbox. Skin: Normal color, No rash, Trauma - Ecchymosis but no abrasion of the left wrist, most pronounced on the dorsal and radial aspect of the wrist. Neurological: Alert, Oriented x3, Cranial nerves II-XII grossly intact, Normal Strength, Normal Sensation Psychological: Normal affect Diagnostic/Tx/Re-eval Clinical Impression(s) from Imaging Studies Wrist X-Ray 03/15/20 16:16 IMPRESSION: Radial styloid fracture. Electronically Signed: Harris Ga MD at 17:05 EST Tel , Service support , - Medical Decision Making Patient is evaluated for 24 hours of left wrist pain after mechanical fall. She is left-hand dominant. She not sustained any other injury, hit her head or have loss of consciousness. She is not on anticoagulation. She is neurovascularly intact. X-ray shows of radial styloid fracture which is consistent with her area of pain and swelling. Patient is placed in an AP short arm splint and given orthopedic follow-up. Her pain is minimal so she will just take Tylenol and ibuprofen for pain control at home. Patient is comfortable going home. Patient is counseled on signs and symptoms requiring return to the emergency room. Patient verbalizes agreement and understand this plan. Patient discharged home in stable and improved condition. Procedures - Upper Extremity Splints Upper Extremity Splint: Orthoglass, - - AP, short arm Splint Fabrication: Fabricated Location: Left - Neuro vascularly intact after splint placement. ED Disposition - Plan for ED Patient: Disposition: Home or Assisted Living Diagnosis: Closed fracture of styloid process of left radius Instructions: ED Forearm Fracture without Reduction Referrals: Mary Krueger DO [Primary Care Provider] - Get Schwab DO [STAFF PHYSICIAN] - Additional Instructions: Keep your splint on at all times. Do not get it wet. Return to the emergency room with worsening symptoms such as pain, numbness or tingling. Elevate the arm as much as possible at night especially. Continue to ice it. Alternate Tylenol and ibuprofen for pain. Call the orthopedist tomorrow to schedule follow-up.
[2020-03-15 18:02] VITALS: RESP 17
[2020-03-15 18:33] VITALS: PULSE 84; RESP 17; O2SAT 98
== END 2020-03-15 18:33 | disposition home or self-care (01) ==
PROVIDERS: Emergency Provider Emergency Medicine; PCP Internal Medicine
DX: S52.512A Displaced fracture of left radial styloid process, initial encounter for closed fracture (principal); J45.909 Unspecified asthma, uncomplicated; E78.5 Hyperlipidemia, unspecified; I10 Essential (primary) hypertension; G20 Parkinson's disease; Z79.899 Other long term (current) drug therapy; W01.0XXA Fall on same level from slipping, tripping and stumbling without subsequent striking against object, initial encounter; Y93.89 Activity, other specified; Y92.89 Other specified places as the place of occurrence of the external cause; Y99.8 Other external cause status
CPT/HCPCS: 29125; 73110; 99282

== ENCOUNTER → 2020-03-19 | Outpatient (CLI) | payer MEDICARE, SELFPAY ==
[2020-03-15 15:47] VITALS: BMI 24.1
--- NOTE | 2020-03-19 13:54 | CYSPIN_PTH ---
PATIENT: RAE SANDHU LOC: [facility] U#:[id number] AGE/SX: 85/F ROOM: RE03/19/[address]: Dr. Mary Krueger DO : 1935 BED: DIS: 03/19/2020 SPEC #: [id number] RECD: 03/20/20 06:42 STATUS: MARTHA AMY #: [id number] DONNA: 03/19/20 13:[address]: Mary Krueger DEPT: CYTOLOGY RECD BY: Cecile Elizondo Tissues: Urine Procedures: Pap Stain (control) Special Stain Group II Cytospin Fluid HEADER OPERATION: Not noted PRE-OP DIAGNOSIS: Gross hematuria TISSUE SUBMITTED: Urine for cytology DIAGNOSIS CYTOLOGY Urine for cytology (cytospin): Negative for malignant cells. Marked acute inflammation. Numerous organisms consistent with bacteria are noted. See comment. SJ:jas 03/20/20 COMMENT Repeat cytology is suggested after treatment of inflammation, if clinically indicated. Clinical correlation and appropriate follow up are necessary. CYTOLOGY STUDY Slides are reviewed. CYTOLOGY GROSS Received is 40 ml of yellow cloudy fluid labeled with the patient's name and and designated per the requisition as urine. Submitted for cytology preparation. / jas 03/20/20 TC:2 CPT: 00976
[2020-03-19 16:10] LABS: Cytology, Body Fluid / CSF SEE PATHOLOGY REPORT
== END | disposition home or self-care (01) ==
LOC: LABSPEC 15:37
PROVIDERS: PCP Internal Medicine; Referring Provider Internal Medicine; Visit Provider Internal Medicine
DX: R31.0 Gross hematuria (principal)
CPT/HCPCS: 88108; 88313

== ENCOUNTER → 2020-04-28 12:39 | Outpatient (CLI) | payer MEDICARE, SELFPAY ==
--- NOTE | 2020-04-28 12:41 | VDLE_ITS ---
Reason For Study: DVT RIGHT GSV is normal. CFV is compressible, spontaneous, phasic, competent and demonstrates normal augmentation. FV is compressible, spontaneous, phasic, competent and demonstrates normal augmentation. POP V is compressible, spontaneous, phasic, competent and demonstrates normal augmentation. T/P Trunk is compressible. PTV is compressible. RT PerV is compressible. GastrocV is partially compressible with bright intraluminal echoes consistent with Chronic DVT. Procedure This is a venous duplex using B-mode, color flow and spectral Doppler. Exam performed in department. A preliminary report was called and/or faxed to No change compared to 03/09/2020. Interpretation Summary Chronic venous changes are noted in the right gastrocnemius vein, which is partially compressible and demonstrates bright intraluminal echogenicity. The remainder of the right lower extremity deep venous system is patent and compressible. Valvular competence appears intact within the proximal deep venous system on the right . The right great saphenous vein appears patent and compressible segmentally. There has been no significant change since a prior study on 03/09/2020. Ordering Physician: Mary Krueger Referring Physician: Mary Krueger Performed By: Ning Castellanos RVT
== END ==
PROVIDERS: PCP Internal Medicine; Referring Provider Internal Medicine; Visit Provider Internal Medicine
DX: I82.4Z1 Acute embolism and thrombosis of unspecified deep veins of right distal lower extremity (principal)
CPT/HCPCS: 93971

== ENCOUNTER → 2020-08-18 09:53 | Outpatient (CLI) | payer MEDICARE, SELFPAY ==
--- NOTE | 2020-08-18 09:56 | CDU_ITS ---
Reason For Study: carotid stenosis Rt. Velocities/BP Lt. Velocities/BP Prox CCA 59.1/10.8 cm/sec. Prox CCA 69.5/17.3 cm/sec. Mid CCA 63.0/12.1 cm/sec. Mid CCA 70.8/14.7 cm/sec. Dist CCA 55.2/14.7 cm/sec. Dist CCA 57.7/9.5 cm/sec. Prox ICA 68.2/12.1 cm/sec. Prox ICA 47.3/13.4 cm/sec. Mid ICA 64.2/17.7 cm/sec. Mid ICA 100.7/29.3 cm/sec. Dist ICA 99.5/30.4 cm/sec. Dist ICA 75.1/23.8 cm/sec. Rt. ICA/CCA = 1.6. Lt. ICA/CCA = 1.4. Prox ECA 57.8/13.4 cm/sec. Prox ECA 68.1/12.1 cm/sec. Rt. Vert. 46.0/14.7 cm/sec. Lt. Vert. 46.0/14.7 cm/sec. Right Extracranial There is intimal thickening but no significant atherosclerotic plaque noted in the right common carotid artery. There is intimal thickening but no significant atherosclerotic plaque noted in the right internal carotid artery. There is intimal thickening but no significant atherosclerotic plaque noted in the right external carotid artery. Antegrade flow is noted in the right vertebral artery. Left Extracranial There is intimal thickening but no significant atherosclerotic plaque noted in the left common carotid artery. There is heterogeneous, irregular atherosclerotic plaque noted in the left internal carotid artery. The left internal carotid artery is very tortuous. There is intimal thickening but no significant atherosclerotic plaque noted in the left external carotid artery. Antegrade flow is noted in the left vertebral artery. Procedure Carotid Duplex 03170. This is a Carotid Duplex examination using B-mode, color flow and specral Doppler. The exam was diagnostic. Exam performed in department. VL/Carotid Duplex Ultrasound Interpretation Summary No significant atherosclerotic plaque or stenosis noted in the right internal c arotid artery. Mild (<50%) stenosis left extracranial internal carotid. Flow within the vertebral a rteries is antegrade bilaterally. Ordering Physician: Mary Krueger Performed By: Ran Conner RVT
== END ==
PROVIDERS: PCP Internal Medicine; Referring Provider Internal Medicine; Visit Provider Internal Medicine
DX: I65.23 Occlusion and stenosis of bilateral carotid arteries (principal)
CPT/HCPCS: 93880

== ENCOUNTER 2021-03-15 08:30 | Inpatient (IN) | payer MEDICARE, SELFPAY ==
[2021-03-15] VITALS (11 sets, daily range): BP systolic 93–147; BP diastolic 31–100; PULSE 83–100; RESP 14–24; TEMP 34.4–36.6; O2SAT 94–100; BMI 22.6
--- NOTE | 2021-03-15 09:07 | CT_ITS ---
STUDY: CT BRAIN WITHOUT CONTRAST REASON FOR EXAM: Female, 86 years old. Changed mental status RADIATION DOSAGE (If Supplied By Facility): CTDIvol = ( 44.99 ) mGy, DLP = ( 812.98 ) mGycm TECHNIQUE: Transaxial CT imaging of the brain was performed without administration of intravenous contrast material. Individualized dose optimization techniques were used for this CT. COMPARISON: No relevant priors. FINDINGS: Normal soft tissue structures. Normal calvarium. There is mild cerebral atrophy with widening of the extra-axial spaces and ventricular dilatation. There are areas of decreased attenuation within the white matter tracts of the supratentorial brain, consistent with microvascular disease changes. Normal basal ganglia and thalami. Normal brainstem. Normal cerebellum. There is no intracranial hemorrhage. There are no findings of an acute ischemic infarction. Partial opacification of the right maxillary sinus. Mild degree of mucosal thickening of the ethmoid sinuses. Surgical clips are seen in the left maxillary region with the open reduction and internal fixation of the left maxillary bone and left zygomatic arch. CT/Brain/Head without Contrast IMPRESSION: Chronic involutional changes of the brain. Electronically Signed: Huy Barclay MD at 10:37 EDT , Service support ,
--- NOTE | 2021-03-15 09:07 | CT_ITS ---
STUDY: CT CERVICAL SPINE WITHOUT CONTRAST REASON FOR EXAM: Female, 86 years old. History of trauma. RADIATION DOSAGE (If Supplied By Facility): CTDIvol = ( 12.95 ) mGy, DLP = ( 261.11 ) mGycm TECHNIQUE: High resolution transaxial imaging was performed without contrast material. Sagittal and coronal images were reconstructed. Individualized dose optimization techniques were used for this CT. COMPARISON: None FINDINGS: Normal craniovertebral junction. There are degenerative changes of the anterior atlantoaxial articulation. Normal odontoid process. There is an exaggerated cervical lordosis. Normal vertebral bodies and posterior osseous elements. C2-3: Normal endplates. Normal disc height and morphology. Normal central canal and intervertebral neuroforamina. C3-4: Mild degree of disc space narrowing. Facet joint osteoarthritis and hypertrophy. Mild degree of bilateral neural foraminal stenosis. C4-5: Mild degree of disc space narrowing. Facet joint osteoarthritis. Uncovertebral arthrosis. Mild degree of bilateral neural foraminal stenosis. C5-6: Facet joint osteoarthritis. Mild degree of bilateral neural foraminal stenosis. C6-7: Normal endplates. Normal disc height and morphology. Normal central canal and intervertebral neuroforamina. C7-T1: Normal endplates. Normal disc height and morphology. Normal central canal and intervertebral neuroforamina. Surgical clips are seen in the left cervical region. This is in keeping with prior left neck dissection. CT/Spine Cervical without Contras IMPRESSION: Multilevel degenerative changes, as described above. Electronically Signed: Huy Barclay MD at 10:35 EDT , Service support ,
--- NOTE | 2021-03-15 09:07 | RAD_ITS ---
STUDY: X-RAY - RIGHT SHOULDER REASON FOR EXAM: Female, 86 years old. Trauma TECHNIQUE: 2 view(s) of the shoulder. COMPARISON: None. FINDINGS: There is moderate degenerative arthrosis of the glenohumeral articulation. There is widening of the AC joint, with displacement of the clavicle, consistent with a Type III acromioclavicular joint separation. Normal acromion. Normal humeral head and visualized proximal humerus. The soft tissue structures are unremarkable. Normal visualized pulmonary apex. 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 Degenerative changes of the glenohumeral joint. Electronically Signed: Huy Barclay MD at 10:44 EDT , Service support ,
--- NOTE | 2021-03-15 09:07 | RAD_ITS ---
STUDY: X-RAY - PELVIS REASON FOR EXAM: Female, 86 years old. Trauma due to a fall. TECHNIQUE: One view of the pelvis was obtained. COMPARISON: None. FINDINGS: There is a non-specific bowel gas pattern. There are multiple calcified phleboliths. There is narrowing with cortical sclerosis and osteophyte formation of the sacroiliac joint consistent with degenerative osteoarthritic changes. Normal visualized bilateral superior and inferior pubic rami. There is narrowing with sclerosis of the pubic symphysis. Normal ischial tuberosities. Normal visualized right femoral head. Normal right acetabulum. There is mild articular joint space narrowing of the right hip. Normal visualized left femoral head. Normal left acetabulum. There is mild articular joint space narrowing of the left hip. RAD/Pelvis 1 or 2 Views IMPRESSION: Degenerative changes. No acute abnormality is seen. Electronically Signed: Huy Barclay MD at 10:43 EDT , Service support ,
--- NOTE | 2021-03-15 09:09 | EKG12_ITS ---
Test Reason : ALT LOC Blood Pressure : / mmHG Vent. Rate : 088 BPM Atrial Rate : 088 BPM P-R Int : 166 ms QRS Dur : 070 ms QT Int : 384 ms P-R-T Axes : 030 035 052 degrees QTc Int : 464 ms Sinus rhythm Low voltage QRS Confirmed by ANDRY ELDER, MILLIE ([id number]), editor at large KEVIN CUNNINGHAM ([id number]) on 03/18/2021 7:42:15 AM Referred By: ANNA Confirmed By:MILLIE WILDE MD
--- NOTE | 2021-03-15 09:11 | EX.ED.DYSGE1 ---
HPI History of Present Illness Chief Complaint: Alt LOC Informant: family Narrative Narrative: Her history is severely limited. Patient has not been heard from since sometime Monday afternoon. She was found on the floor of her independent living apartment today because family could not reach her and she would not respond to texts. The only thing the patient will say is bless your heart. We cannot get any details as of recent illness or complaints. Daughter does not know of any problem she was having. The daughter that is available saw her on Monday and everything seemed to be fine. They do not know if she fell or just laid on the floor. No known change in medicines. Nothing we can ascertain is making symptoms better or worse. [facility] Medical History (Updated 03/15/21 @ 11:[address] Bassem Turner MD) Asthma Bilateral carotid artery stenosis Carotid bruit Congenital spherocytosis Diverticulitis Essential hypertension History of DVT (deep vein thrombosis) History of hiatal hernia History of pulmonary embolism Hyperlipidemia Hypothyroidism Malignant neoplasm of mouth (~04/2019) Nonrheumatic tricuspid valve regurgitation Parkinson disease Premature atrial contractions Premature ventricular contraction Home Medications pantoprazole 40 mg tablet,delayed release 40 mg PO DAILY 01/26/18 [History Last Taken Unknown] carbidopa ER 50 mg-levodopa 200 mg tablet,extended release 1 tab PO TID 03/08/19 [History Last Taken Unknown] citalopram 10 mg tablet 10 mg PO DAILY 03/08/19 [History Last Taken Unknown] atorvastatin 20 mg tablet 20 mg PO DAILY #90 tab 03/25/20 [Rx Last Taken Unknown] amlodipine 10 mg tablet 10 mg PO DAILY #90 tab 03/12/21 [Rx Last Taken Unknown] cyanocobalamin (vitamin B-12) 1,000 mcg PO DAILY 03/15/21 [History Last Taken Unknown] Allergy/AdvReac Type Severity Reaction Status Date / Time Penicillins Allergy Unknown Unknown Verified 03/15/21 08:38 Family History Father Cancer Prostate Mother Alzheimers disease Surgical History History of blepharoplasty History of shoulder surgery History of splenectomy History of tonsillectomy History of tubal ligation Social History Smoking Status: Never smoker alcohol intake: never ROS ROS ED ROS Narrative Review of systems is unobtainable for the above reasons as listed in history of present illness. Review of Systems ROS Unobtainable: due to mental status EXAM Physical Exam Const Vital Signs: 03/15/21 08:31 03/15/21 08:40 03/15/21 09:30 Temperature 94 F L 94 F L Temperature Source Temporal Pulse Rate 83 84 Respiratory Rate 18 16 Respiratory Effort Normal Non-Labored Respiratory Depth Normal Respiratory Pattern Normal Blood Pressure 113/63 97/54 L Blood Pressure Mean 79 68 Pulse Ox 100 97 Oxygen Delivery Method Room Air Room Air 03/15/21 10:05 Temperature Temperature Source Pulse Rate 88 Respiratory Rate 14 Respiratory Effort Respiratory Depth Respiratory Pattern Blood Pressure 98/49 L Blood Pressure Mean 65 Pulse Ox 97 Oxygen Delivery Method Positive well nourished and well developed General Appearance ED: well developed; Negative for cyanotic or diaphoretic HEENT Reports dry mucous membranes Negative for trauma or tenderness Mouth ED: Yes dry mucous membranes Mouth: dry mucous membranes Eyes Eyes Narrative: Pupils are about 2 or so millimeters. They do appear to be reactive. Eyes will look left and right. She did open her eyes to request. General Eye ED: Negative for pale conjunctiva or scleral icterus Neck supple Neck Narrative: No tenderness or contusion. But since we do not know if she fell we will get imaging. General: Negative for tenderness Chest Wall inspection of chest normal Resp normal respiratory effort and clear to auscultation bilaterally Effort and Inspection: Negative for pain with movement Auscultation: Negative for rales, rhonchi or wheezes Cardio regular rate, regular rhythm and no murmurs GI normal to inspection, nondistended, normoactive bowel sounds and non-tender Palpation: soft Extremity Extremity Narrative: There order here to be pressure areas on elbows and right hip and right knee laterally. There is some discomfort with motion of the right shoulder. There is sign of prior surgery well-healed scar on that shoulder. Neuro Neuro Narrative: Patient does seem to be alert. She squeezes both hands. She moves both feet. She will not really speak for me. She occasionally does say just a few words as above. These do seem to be clear. Sensorium / Orientation: alert Psych Attitude: No agitated Mood & Affect: Negative for tearful Skin Skin Narrative: Contusion/pressure areas as above. MDM MDM MDM Narrative Medical decision making narrative: Patient is significantly dehydrated on her labs. White count is also elevated that could be due to stress or dehydration. Lactate is a bit elevated 2.7. Creatinine is 4.0 and BUN is 105. LFTs are just slightly elevated although she appears to have no tenderness. I did add a CAT scan that did not show marked acute process. Troponin is elevated at 640 but her EKG does not show signs of ST segment elevation. Urine does have 5-10 white cells and is a bit cloudy with leukocyte esterase. I checked the urine in the [place] again and is looking more cloudy so I will treat this. Images are not showing acute process. Shoulder pelvis chest showed no acute process or fracture. CT of the head and neck showed no acute process. CT abdomen is stable. Her gallbladder is slightly distended and may have some sludge but no sign of inflammation and not tender. Patient will need to come in. She has been started with hydration. Her daughter states she is starting to talk more and actually spoke to complete coherent sentences to her so she is showing some signs of improvement. Lab Data Attestation: I reviewed the patient's lab results. Labs: Laboratory Results - last 24 hr 03/15/21 03/15/21 03/15/21 09:18 09:20 09:20 WBC 24.6 H RBC 4.51 Hgb 11.8 L Hct 37.4 MCV 82.9 MCH 26.2 L MCHC 31.6 L RDW Std Deviation 53.2 H RDW Coeff of Tiburcio 17.6 H Plt Count 87 L MPV 10.1 Immature Gran % (Auto) 0.700 Neut % (Auto) 96.8 H Lymph % (Auto) 1.1 L Miner % (Auto) 1.2 Eos % (Auto) 0.2 Baso % (Auto) 0.0 Absolute Neuts (auto) 23.8 H Absolute Lymphs (auto) 0.28 L Nucleated RBC % 0.4 Differential Comment SCANNED Platelet Estimate MOD DEC Sodium 140 Potassium 4.3 Chloride 108 H Carbon Dioxide 18.0 L Anion Gap 14 BUN 105 H* Creatinine 4.00 H Estim Creat Clear Calc 8.88 Est GFR (MDRD) Af Amer 14 L Est GFR (MDRD) Non-Af 11 L BUN/Creatinine Ratio 26.2 H Glucose 60 L Lactic Acid 2.7 H* Calcium 8.9 Total Bilirubin 1.30 H AST 175 H ALT 120 H Alkaline Phosphatase 125 H Total Creatine Kinase 3390 H Troponin I High Sens 640 H* Total Protein 6.6 Albumin 2.4 L Globulin 4.2 Albumin/Globulin Ratio 0.6 L Urine Color Urine Clarity Urine pH Ur Specific [place] Urine Protein Urine Glucose (UA) Urine Ketones Urine Occult Blood Urine Nitrite Urine Bilirubin Urine Urobilinogen Ur Leukocyte Esterase Urine RBC Urine WBC Ur Squamous Epith Cells Urine Bacteria Urine Mucus 03/15/21 10:00 WBC RBC Hgb Hct MCV MCH MCHC RDW Std Deviation RDW Coeff of Tiburcio Plt Count MPV Immature Gran % (Auto) Neut % (Auto) Lymph % (Auto) Miner % (Auto) Eos % (Auto) Baso % (Auto) Absolute Neuts (auto) Absolute Lymphs (auto) Nucleated RBC % Differential Comment Platelet Estimate Sodium Potassium Chloride Carbon Dioxide Anion Gap BUN Creatinine Estim Creat Clear Calc Est GFR (MDRD) Af Amer Est GFR (MDRD) Non-Af BUN/Creatinine Ratio Glucose Lactic Acid Calcium Total Bilirubin AST ALT Alkaline Phosphatase Total Creatine Kinase Troponin I High Sens Total Protein Albumin Globulin Albumin/Globulin Ratio Urine Color Yellow Urine Clarity Sl. Cloudy Urine pH 6.0 Ur Specific [place] 1.015 Urine Protein 100 H Urine Glucose (UA) Normal Urine Ketones Negative Urine Occult Blood 250 H Urine Nitrite Negative Urine Bilirubin Negative Urine Urobilinogen Normal Ur Leukocyte Esterase 500 H Urine RBC 0 SEEN Urine WBC 5-10 SEEN Ur Squamous Epith Cells 0-5 SEEN Urine Bacteria 3+ Urine Mucus 0 SEEN Radiography Diagnostic Testing: Clinical Impression(s) from Imaging Studies Brain CT 03/15/21 09:07 IMPRESSION: Chronic involutional changes of the brain. Electronically Signed: Huy Barclay MD at 10:37 EDT , Service support , Cervical Spine CT 03/15/21 09:07 IMPRESSION: Multilevel degenerative changes, as described above. Electronically Signed: Huy Barclay MD at 10:35 EDT , Service support , Pelvis X-Ray 03/15/21 09:07 IMPRESSION: Degenerative changes. No acute abnormality is seen. Electronically Signed: Huy Barclay MD at 10:43 EDT , Service support , Shoulder X-Ray 03/15/21 09:07 IMPRESSION: There is a type III right acromioclavicular joint separation. Degenerative changes of the glenohumeral joint. Electronically Signed: Huy Barclay MD at 10:44 EDT , Service support , Chest X-Ray 03/15/21 10:17 IMPRESSION: Hyperinflation. The lungs are clear. Scattered calcified granulomas. Electronically Signed: Huy Barclay MD at 10:42 EDT , Service support , Abdomen/Pelvis CT 03/15/21 10:19 IMPRESSION: Stable examination. Mildly distended gallbladder. I suspect sludge within the gallbladder lumen. Electronically Signed: Huy Barclay MD at 10:52 EDT , Service support , EKG Initial EKG: Comments: EKG done for possible syncope read by me shows sinus rhythm with some PVC. Initially look like there is atrial flutter but it really changed or continued is sinus. This may have been her Parkinson's. No acute ST elevation or depression. NE interval, QRS duration and QTc are normal. Discharge Plan Triage Chief Complaint: Alt LOC ED Provider: Bassem Turner Dx/Rx/DC Orders Clinical Impression: Fall at home, Acute alteration in mental status, Acute kidney injury, Acute dehydration, Non-ST elevation AR (NSTEMI), Rhabdomyolysis, Acute UTI Prescriptions: No Action pantoprazole 40 mg tablet,delayed release (DR/EC) 40 mg PO DAILY RF: 0 citalopram 10 mg tablet 10 mg PO DAILY RF: 0 carbidopa-levodopa 50-200 mg tablet extended release 1 tab PO TID RF: 0 cyanocobalamin (vitamin B-12) 1,000 mcg Capsule 1,000 mcg PO DAILY RF: 0 atorvastatin 20 mg tablet 20 mg PO DAILY Qty: 90 RF: 3 amlodipine 10 mg tablet 10 mg PO DAILY Qty: 90 RF: 3 Primary Care Provider: Mary Krueger Referrals: Mary Krueger DO [Primary Care Provider] - Disposition Disposition: Acute Care Hospital [facility]
[2021-03-15 09:33] LABS: Absolute Lymphocyte Count 0.28 X10^3/uL (0.83-4.51); Absolute Neutrophil Count 23.8 X10^3/uL (2.0-7.7); Basophil# 0.01 X10^3/uL; Eosinophil# 0.05 X10^3/uL; Eosinophils% 0.2 % (0-5); Hematocrit 37.4 % (37-47); Hemoglobin 11.8 g/dL (12.0-15.0); Lymphocyte # 0.28 X10^3/ul (0.83-4.51); Lymphocyte % 1.1 % (19-41); Mean Corp Hgb Conc 31.6 g/dL (32-36); Mean Corpuscular Hgb 26.2 pg (27.0-32.0); Mean Corpuscular Volume 82.9 fL (81-99); Mean Platelet Vol. 10.1 fl (6.2-12.0); Monocyte% 1.2 % (0-10); NRBC Flagged by Analyzer 0.4 % (0-5); Neutrophil # 23.76 X10^3/uL (2.7-7.7); Neutrophil % 96.8 % (47-70); POSITIVE COUNT YES; POSITIVE DIFFERENTIAL YES; POSITIVE MORPHOLOGY YES; Platelet Count 87 K/mm3 (150-450); RBC Distribution Width CV 17.6 % (11.6-14.6); RBC Distribution Width SD 53.2 fl (35.1-43.9); Red Blood Count 4.51 M/mm3 (4.2-5.4); White Blood Count 24.6 K/mm3 (4.4-11.0)
[2021-03-15 09:39] LABS: Differential Indicated SCAN CRITERIA MET
[2021-03-15 09:54] LABS: Differential Comment SCANNED; Platelet Estimate MOD DEC (ADEQ)
[2021-03-15] MEDS: 0.9% Normal Saline 1,000 ML 1000 ML IV (10:06)
[2021-03-15 10:08] LABS: Lactic Acid 2.7 mmol/L (0.4-1.9)
[2021-03-15 10:08] LABS: ALB/GLOB Ratio 0.6 RATIO (0.9-2.4); AST(SGOT) 175 U/L (15-37); Alanine Aminotransfer ALT/SGPT 120 U/L (13-56); Albumin, Serum 2.4 g/dL (3.2-5.0); Alkaline Phosphatase 125 U/L (45-117); Anion Gap 14 (5-15); BUN 105 mg/dL (7-18); BUN/Creat Ratio 26.2 RATIO (10-20); CPK Total, Creatine Kinase 3390 U/L (26-192); Calcium,Total 8.9 mg/dL (8.5-10.1); Chloride 108 mmol/L (98-107); EST Glomerular Filtration Rate 11 mL/min (>60); Est Glom Filt Rate - Afr Amer 14 mL/min (>60); Estimated Creatinine Clearance 8.88 ml/min; Globulin 4.2 g/dL (2.2-4.2); Glucose 60 mg/dL (74-106); Potassium 4.3 mmol/L (3.5-5.1); Protein, Total 6.6 g/dL (6.4-8.2); Sodium Level 140 mmol/L (136-145); Troponin-I HS 640 pg/mL (3.0-54.0)
[2021-03-15 10:11] LABS: Mucous, Urine 0 SEEN /hpf (<or=2+); Red Blood Cells-Urine 0 SEEN /hpf (0-5)
[2021-03-15 10:16] LABS: Color, Urine Yellow (Yellow); Glucose, Dipstick Normal (Normal); Ketone-Dipstick Negative (Negative); Leukocyte Esterase-Dipstick 500 /ul (Negative); Nitrite-Dipstick Negative (Negative); Occult Blood-Urine 250 /ul (Negative); Protein-Dipstick 100 mg/dl (Negative); Specific Gravity, Urine 1.015 (1.002-1.030); Urine Bilirubin Dipstick Negative (Negative); Urine Clarity Sl. Cloudy (Clear); Urine Urobilinogen Normal (Normal)
--- NOTE | 2021-03-15 10:17 | RAD_ITS ---
STUDY: X-RAY CHEST REASON FOR EXAM: Female, 86 years old. Trauma TECHNIQUE: Single AP portable view of the chest. COMPARISON: Comparison is made with prior study dated 04/18/2018. FINDINGS: EKG electrodes are seen. Hyperinflation. The lungs are clear. Scattered calcified granulomas. There is no demonstrated pleural abnormality. Normal size heart. Normal mediastinum and jose. Normal visualized pulmonary arteries. There is atherosclerotic calcification of the aortic arch with tortuosity. Normal visualized thoracic spine. There is degenerative osteoarthritis of the bilateral shoulders. There is no demonstrated abnormality of the visualized soft tissue structures of the upper abdomen. RAD/Chest 1 View (Portable) IMPRESSION: Hyperinflation. The lungs are clear. Scattered calcified granulomas. Electronically Signed: Huy Barclay MD at 10:42 EDT , Service support ,
--- NOTE | 2021-03-15 10:19 | CT_ITS ---
STUDY: CT ABDOMEN AND PELVIS WITHOUT CONTRAST REASON FOR EXAM: Female, 86 years old. Patient was found on the floor. Elevated liver function tests. RADIATION DOSAGE (If Supplied By Facility): CTDIvol = ( 8.23 ) mGy, DLP = ( 480.98 ) mGycm TECHNIQUE: Transaxial images were obtained from the dome of the diaphragm to the symphysis pubis without oral contrast, and without intravenous contrast. Sagittal and coronal images were reconstructed. Individualized dose optimization techniques were used for this CT. COMPARISON: Comparison is made with prior study dated 02/27/2020. FINDINGS: Mild degree of increased markings at the lung bases suggests overlying atelectasis and/or scarring. The visualized portions of the heart are within normal limits. Normal liver. The gallbladder is distended. I suspect sludge within the gallbladder lumen. Normal spleen. Normal pancreas. There is a small, circumscribed, smooth, low attenuation right adrenal mass, consistent with an adrenal adenoma. This measures 2.1 size by 2.4 cm. This is essentially unchanged. Stable 7.1 mm hypodense nodule in the medial limb of the left adrenal gland suggestive of a small adenoma.. Nonobstructive punctate calculus in the upper pole calyx of the right kidney. Tiny calculus in the lower pole calyx of the left kidney. There is a small hiatal hernia. Normal small intestine. Normal colon. The appendix is visualized and appears normal. There is scattered atherosclerotic calcification of the abdominal aorta and its major visceral branches, without a demonstrated aneurysm. Normal inferior vena cava. Normal retroperitoneum. A JORDAN catheter seen within a nondistended urinary bladder. Calcified fibroid uterus. Normal abdominal wall. Stable loss of height of the T12 and L5 vertebrae. Schmorl''s node along the superior endplate of the L3 vertebrae. CT/Abdomen/Pelvis without Cont IMPRESSION: Stable examination. Mildly distended gallbladder. I suspect sludge within the gallbladder lumen. Electronically Signed: Huy Barclay MD at 10:52 EDT , Service support ,
[2021-03-15 10:27] LABS: Bacteria 3+ /hpf (None Seen); Squamous Epithelial Cells - UA 0-5 SEEN /hpf (5-10); White Blood Cells 5-10 SEEN /hpf (0-5)
--- NOTE | 2021-03-15 10:49 | CM.ED ---
Addendum entered by Heydi Mane 03/15/21 12:19: SCOTT received message from Nathalia stating she is faxing med list to the ED. SCOTT called Rayne in Admission and left message that this development writer did not receive list of patient's medications. Heydi HOLLEY Original Note: SCOTT Note SCOTT called [facility] and left voice mail message for Nathalia requesting that she fax patient's med list to the ED and provided this development writer's phone number and fax number. SCOTT updated medical team. Plan: TO be determined Heydi HOLLEY
[2021-03-15] MEDS: levoFLOXacin IV 750 MG/150 ML BAG 100 MG IV (12:10)
[2021-03-15] MEDS: 0.9% Normal Saline 1,000 ML 999 ML IV (12:15)
--- NOTE | 2021-03-15 13:25 | HP.PCM.HOS_ITS ---
Documented by User: Brian MARTINEZ 03/15/21 14:13 HPI - General General Date of Admission: 03/15/21 HPI Narrative RAE SANDHU is an 86-year-old female who presents to the ED [facility] on 03/15/2021 after suffering a fall and being alone for an unknown amount of time. According to ED physician, patient was found on the floor at her independent living apartment today because family cannot return and she was not responding to text. Last time patient was seen by anyone was by her daughter on Monday and patient seemed to be fine. It is unclear at this time if patient fell on the floor or just began laying there. Patient was alert and oriented to self and seem to be aware that she was in the hospital on my examination, but does not appear to comprehend much else. Vital signs in the ED are temperature of 97.8 ?F, HR of 91, BP of 118/52, RR of 24 breaths/min and patient is currently satting 90% on room air. CBC demonstrates a leukocytosis at 24,000 and anemia with a hemoglobin of 11.8. Baseline hemoglobin appears around 14. BMP demonstrates an elevated creatinine at 4, baseline appears around 1. BUN is 105. Lactic acid is 2.7. High-sensitivity troponins elevated at 640. UA obtained in the ED had yellow cloudy urine, with negative nitrites, leukocyte esterase of 500, 3+ bacteria. Brain and cervical spine CT did not show any acute process or trauma. CT of the abdomen/pelvis was unremarkable and only demonstrated a mildly distended gallbladder. Shoulder x-ray did demonstrate a type III right AC joint separation and degenerative change. Pelvic x-ray demonstrated no acute abnormality and only demonstrated degen erative change. Chest x-ray was without any acute cardiopulmonary process and demonstrated hyperinflation with scattered calcified granulomas. Rapid Covid negative. Blood and urine cultures obtained in the ED are pending. Patient was given fluids and levofloxacin in the ED. [facility] Medical History (Updated 03/15/21 @ 17:[address] Kyle Hughes MD) Asthma Bilateral carotid artery stenosis Carotid bruit Congenital spherocytosis Diverticulitis Essential hypertension History of DVT (deep vein thrombosis) History of hiatal hernia History of pulmonary embolism Hyperlipidemia Hypothyroidism Malignant neoplasm of mouth (~04/2019) Nonrheumatic tricuspid valve regurgitation Parkinson disease Premature atrial contractions Premature ventricular contraction Home Medications pantoprazole 40 mg tablet,delayed release 40 mg PO DAILY 01/26/18 [History Last Taken Unknown] carbidopa ER 50 mg-levodopa 200 mg tablet,extended release 1 tab PO TID 03/08/19 [History Last Taken Unknown] citalopram 10 mg tablet 10 mg PO DAILY 03/08/19 [History Last Taken Unknown] atorvastatin 20 mg tablet 20 mg PO DAILY #90 tab 03/25/20 [Rx Last Taken Unknown] amlodipine 10 mg tablet 10 mg PO DAILY #90 tab 03/12/21 [Rx Last Taken Unknown] cyanocobalamin (vitamin B-12) 1,000 mcg PO DAILY 03/15/21 [History Last Taken Unknown] Allergy/AdvReac Type Severity Reaction Status Date / Time Penicillins Allergy Unknown Unknown Verified 03/15/21 08:38 Family History Father Cancer Prostate Mother Alzheimers disease Surgical History History of blepharoplasty History of shoulder surgery History of splenectomy History of tonsillectomy History of tubal ligation Social History Smoking Status: Never smoker alcohol intake: never ROS Review of Systems ROS Unobtainable: due to encephalopathy and due to mental condition Vital Signs Vital Signs Vital Signs: 03/15/21 08:31 03/15/21 08:40 03/15/21 09:30 Temperature 94 F L 94 F L Temperature Source Temporal Pulse Rate 83 84 Respiratory Rate 18 16 Respiratory Effort Normal Non-Labored Respiratory Depth Normal Respiratory Pattern Normal Blood Pressure 113/63 97/54 L Blood Pressure Mean 79 68 Blood Pressure Source Blood Pressure Position Blood Pressure Location Pulse Ox 100 97 Oxygen Delivery Method Room Air Room Air 03/15/21 10:05 03/15/21 11:25 03/15/21 12:15 Temperature 97.8 F 97.8 F Temperature Source Temporal Temporal Pulse Rate 88 90 84 Respiratory Rate 14 24 H 20 H Respiratory Effort Respiratory Depth Respiratory Pattern Blood Pressure 98/49 L 147/100 H 106/54 L Blood Pressure Mean 65 115 71 Blood Pressure Source Blood Pressure Position Blood Pressure Location Pulse Ox 97 100 97 Oxygen Delivery Method Room Air Room Air 03/15/21 12:44 03/15/21 12:56 Temperature 97.8 F Temperature Source Temporal Pulse Rate 100 Respiratory Rate 24 H Respiratory Effort Normal Non-Labored Respiratory Depth Normal Respiratory Pattern Normal Blood Pressure 118/52 L Blood Pressure Mean 74 Blood Pressure Source Monitor Blood Pressure Position Supine Blood Pressure Location Right Leg Pulse Ox 98 Oxygen Delivery Method Room Air Room Air Weight Weight: 131 lb 9.855 oz Body Mass Index (BMI) 22.6 Physical Exam Const alert General Appearance: cooperative Orientation / Consciousness: confused and disoriented HEENT normocephalic, head/scalp atraumatic and hearing grossly normal bilaterally Eyes PERRL, EOMs intact bilaterally and conjunctivae normal Neck no lymphadenopathy, supple and no JVD Resp normal respiratory effort and no retractions Effort and Inspection: abnormal respiratory pattern and tachypneic Auscultation: diminished lung sounds Cardio regular rate, regular rhythm, no murmurs and no JVD GI normal to inspection, nondistended, normoactive bowel sounds, soft to palpation, non-tender and non-distended Extremity normal to inspection, full ROM and no clubbing, cyanosis or edema Peripheral Pulses: Yes pulses 2+ throughout Skin Skin Narrative: Prior skin graft noted on the right lateral thigh. Neuro Neuro Narrative: Unable to assess due to altered mental status. Psych Psych Narrative: Unable to assess due to altered mental status. Results Lab / Micro Data Result Diagrams: 03/15/21 09:20 03/15/21 09:20 Labs: Laboratory Results - last 24 hr 03/15/21 09:18: Lactic Acid 2.7 H* 03/15/21 09:20: WBC 24.6 H, RBC 4.51, Hgb 11.8 L, Hct 37.4, MCV 82.9, MCH 26.2 L , MCHC 31.6 L, RDW Std Deviation 53.2 H, RDW Coeff of [place] 17.6 H, Plt Count 87 L , MPV 10.1, Immature Gran % (Auto) 0.700, Neut % (Auto) 96.8 H, Lymph % (Auto) 1.1 L, [place] % (Auto) 1.2, Eos % (Auto) 0.2, Baso % (Auto) 0.0, Absolute Neuts (auto) 23.8 H, Absolute Lymphs (auto) 0.28 L, Nucleated RBC % 0.4, Differential Comment SCANNED, Platelet Estimate MOD DEC 03/15/21 09:20: Sodium 140, Potassium 4.3, Chloride 108 H, Carbon Dioxide 18.0 L , Anion Gap 14, BUN 105 H*, Creatinine 4.00 H, Estim Creat Clear Calc 8.88, Est GFR (MDRD) Af Amer 14 L, Est GFR (MDRD) Non-Af 11 L, BUN/Creatinine Ratio 26.2 H , Glucose 60 L, Calcium 8.9, Total Bilirubin 1.30 H, AST 175 H, ALT 120 H, Alkaline Phosphatase 125 H, Total Creatine Kinase 3390 H, Troponin I High Sens 640 H*, Total Protein 6.6, Albumin 2.4 L, Globulin 4.2, Albumin/Globulin Ratio 0.6 L 03/15/21 10:00: Urine Color Yellow, Urine Clarity Sl. Cloudy, Urine pH 6.0, Ur Specific [place] 1.015, Urine Protein 100 H, Urine Glucose (UA) Normal, Urine Ketones Negative, Urine Occult Blood 250 H, Urine Nitrite Negative, Urine Bilirubin Negative, Urine Urobilinogen Normal, Ur Leukocyte Esterase 500 H, Urine RBC 0 SEEN, Urine WBC 5-10 SEEN, Ur Squamous Epith Cells 0-5 SEEN, Urine Bacteria 3+, Urine Mucus 0 SEEN Micro: Microbiology 03/15/21 09:21 Nasal Secretion SARS-CoV-2 Antigen (Rapid) - Final Radiology Impression Brain CT 03/15/21 09:07 IMPRESSION: Chronic involutional changes of the brain. Electronically Signed: Huy Barclay MD at 10:37 EDT , Service support , Cervical Spine CT 03/15/21 09:07 IMPRESSION: Multilevel degenerative changes, as described above. Electronically Signed: Huy Barclay MD at 10:35 EDT , Service support , Pelvis X-Ray 03/15/21 09:07 IMPRESSION: Degenerative changes. No acute abnormality is seen. Electronically Signed: Huy Barclay MD at 10:43 EDT , Service support , Shoulder X-Ray 03/15/21 09:07 IMPRESSION: There is a type III right acromioclavicular joint separation. Degenerative changes of the glenohumeral joint. Electronically Signed: Huy Barclay MD at 10:44 EDT , Service support , Chest X-Ray 03/15/21 10:17 IMPRESSION: Hyperinflation. The lungs are clear. Scattered calcified granulomas. Electronically Signed: Huy Barclay MD at 10:42 EDT , Service support , Abdomen/Pelvis CT 03/15/21 10:19 IMPRESSION: Stable examination. Mildly distended gallbladder. I suspect sludge within the gallbladder lumen. Electronically Signed: Huy Barclay MD at 10:52 EDT , Service support , Assessment & Plan Assessment/Plan (1) Fall at home: QUALIFIERS: Encounter type: initial encounter Qualified Code(s): W19.XXXA - Unspecified fall, initial encounter; Y92.009 - Unspecified place in unspecified non-institutional (private) residence as the place of occurrence of the external cause (2) Acute alteration in mental status: (3) Acute UTI: (4) Acute encephalopathy: (5) Rhabdomyolysis: PLAN: Patient is an 86-year-old female who presents to the ED at [facility] on 03/15/2021 after suffering a fall of unknown duration and for being alone. Patient will be admitted for management of acute UTI and monitoring. 1) sepsis secondary to acute cystitis Meets criteria for sepsis. Vital signs obtained in the ED demonstrate an elevated respiratory rate at 24 breaths/min, other vital signs stable and patient is afebrile. CBC demonstrates a white count at 24,000. Lactate is 2.7. UA is abnormal with yellow cloudy urine, negative nitrites, 500 leukocyte esterase and 3+ bacteria. Rapid Covid negative. Plan; admit to PCU, continue levofloxacin, CBC and BMP in a.m., urine and blood cultures ordered/pending, PT/OT eval ordered, case management consult ordered. 2) acute encephalopathy status post fall Likely infectious, in the absence of other evidence. Imaging obtained in the ED was unremarkable and did not show any acute traumatic process or evidence of isc hemia or infarction. Patient is not a reliable historian as she is only alert and oriented to self, family who presented with patient in the ED were not able to provide much details around patient's fall or symptoms as the last time they saw her was Monday evening, where she appeared normal. Plan; as above. 3) rhabdomyolysis CK level 3390. Likely due to dehydration secondary to fall, continue IV fluids. 4) elevated troponin Initial has not of troponin elevated at 640. Unclear etiology, continue to cycle troponins. 5) MARLINE Creatinine currently 4.0, baseline appears below 1. Likely secondary to dehydration, continue IV fluids. Continue to trend BMP. CODE STATUS: Full code?unverified Patient seen by Brian Echols PA-C, under the supervision of Dr. Hughes Documented by User: Dr. Kyle Hughes MD 03/15/21 17:26 HPI - General General Date of Admission: 03/15/21 Date of Service: 03/15/21 Chief Complaint: Altered mental status, fall HPI Narrative The patient is 86-year-old female was brought from independent living status her history is limited at patient not able to talk. History mainly taken from patient's daughter. As per the daughter, she talk to her last on phone Monday but she did not able to connect her on Monday and today. Prior to that she saw her physically on Monday. Her baseline that she is able to walk. As per the [facility] paper, she fell down on walking on walker and has bruise on the right leg. She is also confused and disoriented. Patient CK denies any troponin elevated. Twelve-lead EKG shows normal sinus rhythm with PVCs, low voltage. Patient denies any chest pain or shortness of breath. Patient had CT head and CT C-spine did not show any acute change. Patient also felt weak X ray, shoulder x-ray and chest x-ray with nursing acute change. CT abdomen shows mildly distended gallbladder with sludge. No abdominal pain. Patient very dehydrated. Her blood pressure was low 97/54 but improved with the IV fluid normal saline bolus 2 L given in ER and third liter IV bolus on. [facility] Medical History (Updated 03/15/21 @ 17:[address] Kyle Hughes MD) Asthma Bilateral carotid artery stenosis Carotid bruit Congenital spherocytosis Diverticulitis Essential hypertension History of DVT (deep vein thrombosis) History of hiatal hernia History of pulmonary embolism Hyperlipidemia Hypothyroidism Malignant neoplasm of mouth (~04/2019) Nonrheumatic tricuspid valve regurgitation Parkinson disease Premature atrial contractions Premature ventricular contraction Home Medications pantoprazole 40 mg tablet,delayed release 40 mg PO DAILY 01/26/18 [History Last Taken Unknown] carbidopa ER 50 mg-levodopa 200 mg tablet,extended release 1 tab PO TID 03/08/19 [History Last Taken Unknown] citalopram 10 mg tablet 10 mg PO DAILY 03/08/19 [History Last Taken Unknown] atorvastatin 20 mg tablet 20 mg PO DAILY #90 tab 03/25/20 [Rx Last Taken Unknown] amlodipine 10 mg tablet 10 mg PO DAILY #90 tab 03/12/21 [Rx Last Taken Unknown] cyanocobalamin (vitamin B-12) 1,000 mcg PO DAILY 03/15/21 [History Last Taken Unknown] Allergy/AdvReac Type Severity Reaction Status Date / Time Penicillins Allergy Unknown Unknown Verified 03/15/21 08:38 Family History Father Cancer Prostate Mother Alzheimers disease Surgical History History of blepharoplasty History of shoulder surgery History of splenectomy History of tonsillectomy History of tubal ligation Social History Smoking Status: Never smoker alcohol intake: never Physical Exam Narrative General: Confused, disoriented. Minimally verbal. HEENT: Atraumatic, PERRLA, EOMI, Normocephalic Oral: Oral mucosa dry on limited exam. Could not open mouth wide, does not follow command. Neck: Supple, No JVD, Negative Carotid Bruits Lungs: Air entry diminished in bilateral lung bases. No crepitation/rhonchi Cardiovascular: Regular rate, Regular Rhythm, Normal S1, Normal S2, No murmurs Abdomen: Bowel Sounds Present, Soft, Non Tender, Non-Distended : No renal angle tenderness. No suprapubic tenderness. Extremities: No edema, Capillary Refill Less than 3 Seconds Skin: Bruise over right lower leg. Musculoskeletal: No Tenderness to Palpation of Joints or Extremities Neurological: Cranial nerves II-XII grossly intact, no obvious lateralization sign. Psych/Mental Status: Flat affect Results Lab / Micro Data Result Diagrams: 03/15/21 09:20 03/15/21 09:20 Assessment & Plan Assessment/Plan (1) Fall at home: QUALIFIERS: Encounter type: initial encounter Qualified Code(s): W19.XXXA - Unspecified fall, initial encounter; Y92.009 - Unspecified place in unspecified non-institutional (private) residence as the place of occurrence of the external cause (2) Acute encephalopathy: PLAN: This patient was seen in conjunction with JUAN Adame. I have independently interviewed and examined the patient and reviewed pertinent history, examination findings, laboratory and plan of management. I have reviewed the note and agree with the documented findings with the few additional points. In brief, patient is admitted for acute encephalopathy and fall. Altered mental status of unclear etiology as patient denies burning micturition but UA shows 3+ bacteria, LE positive nitrite negative. Empirically started on IV antibiotics. Patient has leukocytosis, lactic acidosis 2.7, high CK and isolated troponin. EKG low voltage nondiagnostic. Patient also has acute kidney injury probably due to prerenal. Patient had 2 L of IV fluid normal saline and with her advanced age IV fluids decreased to 150 mill per hour. Watch for fluid overload. I talked to the patient's daughter, power of trimmer hand and wanted full code for now. Overall patient herself not be prolonged on life support, CPR but she will check with her other sisters and let me know. I have discussed my assessment with JUAN Adame and orders have been reviewed. Charges/Coding Visit Charges Inpatient E&M: 28811 Init Hosp L3 Procedures Hospitalists Procedures: 91921 Advncd Care Plan 30 Min
[2021-03-15 13:29] LABS: Reflex Lactate? Y
[2021-03-15 14:55] LABS: Lactic Acid 1.7 mmol/L (0.4-1.9)
[2021-03-15] MEDS: 0.9% Normal Saline 1,000 ML 150 ML IV ×2 (16:10→22:47)
--- NOTE | 2021-03-15 16:40 | PCS.PANDOC ---
PANDEMIC DOCUMENTATION INITIATED: Date: 12/28/2020 Time: 190
[2021-03-15] MEDS: Acetaminophen 650 MG Suppository RC ×2 (18:40→22:46)
[2021-03-16] VITALS (9 sets, daily range): BP systolic 103–119; BP diastolic 50–68; PULSE 77–89; RESP 16–20; TEMP 36.1–37; O2SAT 94–96
[2021-03-16] MEDS: Acetaminophen 650 MG Suppository RC ×2 (05:03→22:29)
[2021-03-16] MEDS: 0.9% Normal Saline 1,000 ML 150 ML IV ×2 (05:04→13:19)
[2021-03-16 07:28] LABS: Absolute Lymphocyte Count 0.49 X10^3/uL (0.83-4.51); Absolute Neutrophil Count 17.7 X10^3/uL (2.0-7.7); Basophil# 0.07 X10^3/uL; Basophil% 0.4 % (0-1); Hematocrit 28.9 % (37-47); Hemoglobin 8.9 g/dL (12.0-15.0); Lymphocyte # 0.49 X10^3/ul (0.83-4.51); Lymphocyte % 2.6 % (19-41); Mean Corp Hgb Conc 30.8 g/dL (32-36); Mean Corpuscular Hgb 25.8 pg (27.0-32.0); Mean Corpuscular Volume 83.8 fL (81-99); Mean Platelet Vol. 12.4 fl (6.2-12.0); Monocyte# 0.71 X10^3/uL; Monocyte% 3.7 % (0-10); NRBC Flagged by Analyzer 0.7 % (0-5); Neutrophil # 17.74 X10^3/uL (2.7-7.7); Neutrophil % 93.1 % (47-70); POSITIVE COUNT YES; POSITIVE DIFFERENTIAL YES; POSITIVE MORPHOLOGY YES; RBC Distribution Width CV 18.7 % (11.6-14.6); RBC Distribution Width SD 56.9 fl (35.1-43.9); Red Blood Count 3.45 M/mm3 (4.2-5.4); White Blood Count 19.1 K/mm3 (4.4-11.0)
[2021-03-16 07:52] LABS: Differential Indicated SCAN CRITERIA MET; Platelet Count 39 K/mm3 (150-450)
[2021-03-16 08:04] LABS: Anion Gap 10 (5-15); BUN 106 mg/dL (7-18); BUN/Creat Ratio 32.8 RATIO (10-20); Calcium,Total 8.3 mg/dL (8.5-10.1); Chloride 119 mmol/L (98-107); Creatinine, Serum 3.23 mg/dL (0.55-1.02); EST Glomerular Filtration Rate 15 mL/min (>60); Est Glom Filt Rate - Afr Amer 18 mL/min (>60); Glucose 66 mg/dL (74-106); Potassium 3.9 mmol/L (3.5-5.1); Sodium Level 144 mmol/L (136-145)
[2021-03-16] MEDS: Ceftriaxone 1 GM/50 ML BAG IV (08:04)
[2021-03-16 08:57] LABS: Differential Comment SCANNED
[2021-03-16 08:58] LABS: Platelet Estimate MKD DEC (ADEQ)
--- NOTE | 2021-03-16 11:00 | CASEMGMT ---
RN CM Face to Face with patient for initial transition planning/care coordination assessment. RN CM introduced self and role at [facility]. Patient lying in bed, confused, daughter at bedside. Daughter, Cris, willing to participate in assessment and is able to answer all questions appropriately. Care providers, pharmacy, and demographics verified. Daughter wishes for patient to discharge to [facility] for assisted. Daughter states she has no further needs or concerns at this time. CM to follow for discharge planning needs that may arise. PCP: Aleisha Krueger Specialists: [place] neurologist Preferred Pharmacy: [facility] Insurance: [employer] [facility] Prescription Benefit: yes Living Will/HPOA: yes, daughter Cris Leonor LNOK: daughters Living Arrangements: Patient lives alone in a 2nd floor apartment with elevator. Patient was independent at home prior to hospitalization Transportation: self/daughter DME/HHC: Patient has shower chair, raised toilet, grab bars at home. Patient has had [facility] for HHC in the past. Patient has been to rehab at [facility] in the past. Disposition Plan: Patient to discharge to [facility] pending acceptance and precert. Ning ALVES, RN, CM
--- NOTE | 2021-03-16 11:46 | CASEMGMT ---
SW was informed by RN JUDE Darling that patient's daughter would like patient to go to [facility] for rehab at discharge. SW noted patient has [employer]. [facility] is out of network with [employer]. SW called [employer] and obtained patient's benefits. In network SNF: covered at 100% and out of network: 8% co-insurance. SW called [facility] regarding referral and left a message. SW also faxed referral. SW will talk with patient's daughter and make sure she is aware that [facility] is out of network. SW will also let her know the co-insurance. Bernadine from [facility] called and said they can take patient as long as patient's daughter is okay with the out of network benefits. Kelli Gonzalez [employer] REMOVER CHARGE ACCOUNT AUTHORIZER
--- NOTE | 2021-03-16 12:36 | PN.HOSP_ITS ---
Documented by User: Brian MARTINEZ 03/16/21 12:50 Subjective Subjective Patient is an 86-year-old female lying in bed, alert and oriented to self. Patient unable to provide much insight into her current condition as she is acutely confused. Patient's daughter states that patient is not at baseline mentation. Discussed patient case with daughter and son. Objective Data Objective Data Vital Signs: Vital Signs Temp Pulse Resp BP Pulse Ox 97.8 F 88 18 103/68 94 03/16/21 10:56 03/16/21 10:56 03/16/21 10:56 03/16/21 10:56 03/16/21 10:56 Oxygen Delivery Method Room Air Weight: 131 lb 6.328 oz Body Mass Index (BMI) 22.6 Intake & Output: Intake and Output for Last 24 Hours 03/14/21 03/15/21 03/16/21 23:59 23:59 23:59 Intake Total 3142.5 / 3142.5 992.5 / 992.5 Output Total 700 / 900 400 / 400 Balance 2442.5 / 2242.5 592.5 / 592.5 Lab / Micro Data Result Diagrams: 03/16/21 07:07 03/16/21 07:07 Labs: Laboratory Results - last 24 hr 03/15/21 14:05: Lactic Acid 1.7 03/16/21 07:07: WBC 19.1 H, RBC 3.45 L, Hgb 8.9 L, Hct 28.9 L, MCV 83.8, MCH 25.8 L, MCHC 30.8 L, RDW Std Deviation 56.9 H, RDW Coeff of Tiburcio 18.7 H, Plt Count 39 L*, MPV 12.4 H, Immature Gran % (Auto) 0.200, Neut % (Auto) 93.1 H, Lymph % (Auto) 2.6 L, [place] % (Auto) 3.7, Eos % (Auto) 0.0, Baso % (Auto) 0.4, Absolute Neuts (auto) 17.7 H, Absolute Lymphs (auto) 0.49 L, Nucleated RBC % 0.7, Differential Comment SCANNED, Diff Path Review September, Platelet Estimate MKD DEC 03/16/21 07:07: Sodium 144, Potassium 3.9, Chloride 119 H, Carbon Dioxide 15.0 L , Anion Gap 10, BUN 106 H*, Creatinine 3.23 H, Estim Creat Clear Calc 11.00, Est GFR (MDRD) Af Amer 18 L, Est GFR (MDRD) Non-Af 15 L, BUN/Creatinine Ratio 32.8 H , Glucose 66 L, Calcium 8.3 L Micro: Microbiology 03/15/21 09:21 Nasal Secretion SARS-CoV-2 Antigen (Rapid) - Final 03/15/21 10:00 Urine, Catheterized Urine Culture - Preliminary GNR lactose personal fitness manager 03/15/21 09:15 Blood Culture (Wb) - Left Hand Blood Culture - Preliminary 03/15/21 12:00 Blood Culture (Wb) - Right Hand Blood Culture - Preliminary GNR lactose personal fitness manager Physical Exam Const alert Orientation / Consciousness: confused and disoriented Exam Limitations: altered mental status HEENT head/scalp atraumatic and moist oral mucous membranes Head and Scalp: normocephalic Eyes PERRL, EOMs intact bilaterally and conjunctivae normal Neck no lymphadenopathy, supple and no JVD Resp normal respiratory effort, no retractions and no use of accessory muscles Cardio regular rate, regular rhythm, no murmurs and no JVD GI normal to inspection, nondistended, normoactive bowel sounds, soft to palpation and non-tender Extremity normal to inspection, full ROM and no clubbing, cyanosis or edema Skin no rashes or lesions noted, no wounds, skin turgor normal and no jaundice Neuro CN's II-XII intact bilaterally Psych affect normal Assessment & Plan Assessment/Plan (1) Acute encephalopathy: (2) Fall at home: QUALIFIERS: Encounter type: initial encounter Qualified Code(s): W19.XXXA - Unspecified fall, initial encounter; Y92.009 - Unspecified place in unspecified non-institutional (private) residence as the place of occurrence of the external cause (3) Acute alteration in mental status: (4) Acute UTI: PLAN: Day 1 Discharge planning: To be determined, possible discharge to [facility] when patient is medically ready. 1) sepsis secondary to acute cystitis Met criteria for sepsis on admission. Currently, vital signs are stable and patient is afebrile. Patient's white count has responded to antibiotics and is currently 19,000. Blood and urine cultures preliminarily grew gram-negative rods lactose personal fitness manager. Rapid Covid was negative. Lactate was 2.7 on admission. plan; remain admitted to PCU, continue Rocephin, ID consult ordered, continue to trend CBC, case management following for disposition planning. 2) acute encephalopathy status post fall Likely infectious, in the absence of other evidence. Imaging obtained in the ED was unremarkable and did not show any acute traumatic process or evidence of ischemia or infarction. Patient is not a reliable historian as she is only alert and oriented to self, family who presented with patient in the ED were not able to provide much details around patient's fall or symptoms as the last time they saw her was Monday evening, where she appeared normal. Plan; as above. 3) rhabdomyolysis CK level 3390. Likely due to dehydration secondary to fall, continue IV fluids. 4) elevated troponin Initial has not of troponin elevated at 640. Unclear etiology. Continue to monitor. 5) MARLINE Creatinine currently 3.2, down from admission, baseline appears around 1. Likely secondary to dehydration with fall, continue IV fluids. Continue to trend BMP. DVT Prophylaxis - SCD's Patient seen by Brian Echols PA-C, under the supervision of Dr. Hughes Documented by User: Dr. Kyle Hughes MD 03/16/21 14:53 Subjective Subjective Patient little more awake than yesterday but is still drowsy and lethargic. I talked to the daughter at length about her medical condition. Her hemoglobin dropped. Improvement in creatinine. IV fluid changed to bicarb drip. ID and chip separator consulted. Objective Data Lab / Micro Data Result Diagrams: 03/16/21 07:07 03/16/21 07:07 Physical Exam Narrative General: Drowsy, lethargic. Sleepy. Minimally verbal in the morning. HEENT: Atraumatic, PERRLA, EOMI, Normocephalic Oral: Oral mucosa dry on limited exam. Could not open mouth wide, does not follow command. Neck: Supple, No JVD, Negative Carotid Bruits Lungs: Air entry diminished in bilateral lung bases. No crepitation/rhonchi Cardiovascular: Regular rate, Regular Rhythm, Normal S1, Normal S2, No murmurs Abdomen: Bowel Sounds Present, Soft, Non Tender, Non-Distended : No renal angle tenderness. No suprapubic tenderness. Extremities: No edema, Capillary Refill Less than 3 Seconds Skin: Bruise over right lower leg. Musculoskeletal: No Tenderness to Palpation of Joints or Extremities Neurological: Cranial nerves II-XII grossly intact, no obvious lateralization sign. Psych/Mental Status: Flat affect Assessment & Plan Assessment/Plan (1) Rhabdomyolysis: QUALIFIERS: Rhabdomyolysis type: non-traumatic Qualified Code(s): M62.82 - Rhabdomyolysis PLAN: This patient was seen in conjunction with JUAN Adame. I have independently interviewed and examined the patient and reviewed pertinent history, examination findings, laboratory and plan of management. I have reviewed the note and agree with the documented findings with the few additional points. In brief, patient is admitted for acute encephalopathy and fall. Acute encephalopathy probably multiple etiologies, metabolic from rhabdomyolysis, electrolyte abnormality and infection. Yesterday, patient denied burning micturition but UA shows 3+ bacteria, LE positive nitrite negative. Empirically started on IV antibiotics ceftriaxone. Blood and urine culture shows gram- negative tammie, lactose personal fitness manager. Patient has leukocytosis, lactic acidosis 2.7, high CK and isolated troponin. EKG low voltage nondiagnostic. ID is consulted. 03/16: Acute kidney injury: IV fluid changed to bicarb drip at 150 mill per hour. Slight improvement in kidney function. Engineering Team Supervisor consulted. Patient also has drop in hemoglobin, normocytic normochromic possible hemolytic anemia. Platelet count 39,000 dropped from 87,000. Leukocytosis improving. Hemolytic anemia work-up ordered. I talked to the patient's daughter, power of divorce attorney and talked to more than 15 minutes regarding different medical complications including anemia, kidney failure, bacteremia and altered mental status and explained the pathophysiology mechanism and management plan. Total time of the visit including total time spent in counseling or coordination of care, (more than 50% of the total time, spent in obtaining medical information from nurses and other ancillary care providers,explaining to the patient about labs, imaging, diagnosis and management), discussion with patient's daughter, POA, review of labs and imaging is 30 minutes. According to her living will, patient is DNR CC arrest with no intubation I have discussed my assessment with JUAN Adame and orders have been reviewed. Microbiology Past 72 Hours 03/15/21 09:21 Nasal Secretion SARS-CoV-2 Antigen (Rapid) - Final 03/15/21 10:00 Urine, Catheterized Urine Culture - Preliminary GNR lactose personal fitness manager 03/15/21 09:15 Blood Culture (Wb) - Left Hand Blood Culture - Preliminary 03/15/21 12:00 Blood Culture (Wb) - Right Hand Blood Culture - Preliminary GNR lactose personal fitness manager Laboratory Results 03/15/21 14:05: Lactic Acid 1.7 03/16/21 07:07: WBC 19.1 H, RBC 3.45 L, Hgb 8.9 L, Hct 28.9 L, MCV 83.8, MCH 25.8 L, MCHC 30.8 L, RDW Std Deviation 56.9 H, RDW Coeff of Tiburcio 18.7 H, Plt Count 39 L*, MPV 12.4 H, Immature Gran % (Auto) 0.200, Neut % (Auto) 93.1 H, Lymph % (Auto) 2.6 L, [place] % (Auto) 3.7, Eos % (Auto) 0.0, Baso % (Auto) 0.4, Absolute Neuts (auto) 17.7 H, Absolute Lymphs (auto) 0.49 L, Nucleated RBC % 0.7, Differential Comment SCANNED, Diff Path Review Reviewed, Platelet Estimate MKD 03/16/21 07:07: Sodium 144, Potassium 3.9, Chloride 119 H, Carbon Dioxide 15.0 L , Anion Gap 10, BUN 106 H*, Creatinine 3.23 H, Estim Creat Clear Calc 11.00, Est GFR (MDRD) Af Amer 18 L, Est GFR (MDRD) Non-Af 15 L, BUN/Creatinine Ratio 32.8 H , Glucose 66 L, Calcium 8.3 L 03/16/21 07:07: Immature Plt Fraction 9.5 H, Retic Count 1.21, Immature Retic Fraction 13.30, Retic Hgb Equivalent 26.5 L 03/16/21 07:07: Lactate Dehydrogenase Pending, Total Creatine Kinase Pending, Troponin I High Sens Pending 03/16/21 07:07: Direct Antiglob Test Pending Charges/Coding Visit Charges Inpatient E&M: 96741 Subs Hosp L3
--- NOTE | 2021-03-16 12:58 | CASEMGMT ---
SCOTT met with patient's daughter, Cris in patient's room while patient slept. SCOTT let Cris know that [facility] is out of network with patient's insurance. SCOTT told her patient's benefits for in and out of network are better than most insurances. SCOTT told her in network patient is covered at 100% and out of network there is an 8% co-insurance. Cris was surprised that [facility] is out of network. Cris asked what facilities are in network with patient's insurance. SCOTT went on [employer]'s website and located in network facilities. SCOTT then highlighted the in network facilities on the list of SNF providers including quality and resource use data and consistent with the patient?s preferred geographic region, medical needs, and insurance network. SCOTT provided Cris with this list. Cris feels that patient will still go to [facility], but she does want to share this information with the rest of the family. Once PT/OT evaluations are in SCOTT will fax these to [facility] and ask [facility] to start the pre-cert. Kelli Gonzalez [employer] [employer]
[2021-03-16 13:50] LABS: Pathologist Review Reviewed
[2021-03-16 14:34] LABS: Immature Platelet Fraction 9.5 % (1.0-7.9); Platelet Count 38 K/mm3 (150-450); RET-HE 26.5 pg (30-35); Reticulocyte Count 1.21 % (0.5-1.5)
[2021-03-16 14:54] LABS: CPK Total, Creatine Kinase 1173 U/L (26-192); LDH 283 U/L (84-246); Troponin-I HS 639 pg/mL (3.0-54.0)
--- NOTE | 2021-03-16 21:46 | NURSING ---
Daughter Mervat called in to speak with this RN. She asked whether the tobacco sample puller or ID had seen her mother yet. She also explained the procedure that her mother had regarding her palate repair. Dr. Michelet Herrera was the surgeon that did the surgery and who she follows with. She is currently seeing Dr. Carranza regarding this issue. Mervat talked to Dr. Carranza after talking to Dr. Hughes today about the unclear source of infection to see whether the mouth issue would be causing the infection. Dr. Carranza does not think this is the source of infection but would be more than willing to speak with Dr. Hughes regarding the issue or any other issues. Her cell phone number is [phone]. Mervat also expressed concern regarding her mom's pain and the amount of wincing and moaning with movement and respositioning. She spoke to Dr. Carranza about this and she recommended that the pt gets her rectal Tylenol as often as she can. Mervat is requesting that her Tylenol be given as often as possible to keep her out of pain. Discussed w/ daughter that pt told the daysgaft RN that she was not in pain, but Mervat said that she has a high pain tolerance. Daughter reassured that we will give Tylenol as needed. Mervat also requesting that pt be repositioned frequently. Again, this RN reassured her that we will be turning pt to keep her comfortable.
[2021-03-17] VITALS (10 sets, daily range): BP systolic 105–112; BP diastolic 61–69; PULSE 73–91; RESP 16–20; TEMP 36.5–37; O2SAT 92–96
[2021-03-17] MEDS: 0.9% Saline Lock 10 ML Syringe IV (03:17)
[2021-03-17] MEDS: Acetaminophen 650 MG Suppository RC (03:19)
[2021-03-17 07:56] LABS: Absolute Lymphocyte Count 0.63 X10^3/uL (0.83-4.51); Absolute Neutrophil Count 9.6 X10^3/uL (2.0-7.7); Basophil# 0.02 X10^3/uL; Basophil% 0.2 % (0-1); Eosinophil# 0.01 X10^3/uL; Eosinophils% 0.1 % (0-5); Hematocrit 28.3 % (37-47); Hemoglobin 8.8 g/dL (12.0-15.0); Lymphocyte # 0.63 X10^3/ul (0.83-4.51); Lymphocyte % 5.8 % (19-41); Mean Corp Hgb Conc 31.1 g/dL (32-36); Mean Corpuscular Hgb 25.5 pg (27.0-32.0); Mean Platelet Vol. 12.4 fl (6.2-12.0); Monocyte# 0.59 X10^3/uL; Monocyte% 5.4 % (0-10); NRBC Flagged by Analyzer 0.5 % (0-5); Neutrophil # 9.56 X10^3/uL (2.7-7.7); POSITIVE COUNT YES; POSITIVE MORPHOLOGY YES; RBC Distribution Width SD 56.2 fl (35.1-43.9); Red Blood Count 3.45 M/mm3 (4.2-5.4); White Blood Count 10.9 K/mm3 (4.4-11.0)
[2021-03-17] MEDS: Ceftriaxone 1 GM/50 ML BAG IV (08:09)
[2021-03-17 08:13] LABS: Differential Indicated SCAN CRITERIA MET; Platelet Count 25 K/mm3 (150-450)
[2021-03-17 08:31] LABS: ALB/GLOB Ratio 0.5 RATIO (0.9-2.4); AST(SGOT) 45 U/L (15-37); Alanine Aminotransfer ALT/SGPT 71 U/L (13-56); Albumin, Serum 1.6 g/dL (3.2-5.0); Alkaline Phosphatase 99 U/L (45-117); Anion Gap 7 (5-15); BUN 92 mg/dL (7-18); BUN/Creat Ratio 36.4 RATIO (10-20); Calcium,Total 8.5 mg/dL (8.5-10.1); Chloride 120 mmol/L (98-107); Creatinine, Serum 2.53 mg/dL (0.55-1.02); EST Glomerular Filtration Rate 19 mL/min (>60); Est Glom Filt Rate - Afr Amer 23 mL/min (>60); Estimated Creatinine Clearance 14.04 ml/min; Globulin 3.4 g/dL (2.2-4.2); Glucose 83 mg/dL (74-106); Magnesium 2.2 mg/dL (1.6-2.6); Phosphorus 3.1 mg/dL (2.5-4.9); Potassium 3.2 mmol/L (3.5-5.1); Sodium Level 149 mmol/L (136-145)
[2021-03-17 10:28] LABS: Differential Comment SCANNED; Platelet Estimate MKD DEC (ADEQ)
[2021-03-17 10:59] LABS: Pathologist Review Reviewed
--- NOTE | 2021-03-17 11:54 | CON.PCM.RE_ITS ---
Assessment & Plan Assessment/Plan (1) Acute kidney injury: PLAN: Likely related to volume depletion, rhabdomyolysis. Urine analysis is consistent with UTI. Also has bacteremia. CT abdomen without any hydronephrosis. Both BUN and creatinine are better today. Electrolytes are acceptable. No acute indications for dialysis. Patient was noted to have significant decline in platelet count. On admission she presented with altered mental status, has anemia, elevated LDH, haptoglobin pending. Apparently had some diarrhea as well. ? TTP. As per daughter today her mental status is significantly better. Creatinine is better. Discussed with hospitalist. No schistocytes seen on peripheral smear as per pathologist. Etiology of thrombocytopenia unclear at this point. (2) Rhabdomyolysis: QUALIFIERS: Rhabdomyolysis type: non-traumatic Qualified Code(s): M62.82 - Rhabdomyolysis PLAN: Likely related to prolonged immobilization. CPK levels are improving. Continue fluids for now. HPI Consult Data Date of Consult: 03/17/21 HPI Narrative HPI Narrative: ARE SANDHU, is a 86 F who presents to the hospital with altered mental status. Nephrology consulted for acute renal failure. Patient is somewhat hard of hearing and confused. Most of the history is from charts and family at bedside. Apparently she lives in assisted living facility. She was found down on the floor, found to have acute renal failure, UTI, bacteremia, rha bdomyolysis. As per family members, her mental status today is better. Taylor catheter with good urine output. [facility] Medical History (Updated 03/16/21 @ 14:[address] Kyle Hughes MD) Asthma Bilateral carotid artery stenosis Carotid bruit Congenital spherocytosis Diverticulitis Essential hypertension History of DVT (deep vein thrombosis) History of hiatal hernia History of pulmonary embolism Hyperlipidemia Hypothyroidism Malignant neoplasm of mouth (~04/2019) Nonrheumatic tricuspid valve regurgitation Parkinson disease Premature atrial contractions Premature ventricular contraction Home Medications pantoprazole 40 mg tablet,delayed release 40 mg PO DAILY 01/26/18 [History Last Taken Unknown] carbidopa ER 50 mg-levodopa 200 mg tablet,extended release 1 tab PO TID 03/08/19 [History Last Taken Unknown] citalopram 10 mg tablet 10 mg PO DAILY 03/08/19 [History Last Taken Unknown] atorvastatin 20 mg tablet 20 mg PO DAILY #90 tab 03/25/20 [Rx Last Taken Unknown] amlodipine 10 mg tablet 10 mg PO DAILY #90 tab 03/12/21 [Rx Last Taken Unknown] cyanocobalamin (vitamin B-12) 1,000 mcg PO DAILY 03/15/21 [History Last Taken Unknown] Allergy/AdvReac Type Severity Reaction Status Date / Time Penicillins Allergy Unknown Unknown Verified 03/15/21 08:38 Family History Father Cancer Prostate Mother Alzheimers disease Surgical History History of blepharoplasty History of shoulder surgery History of splenectomy History of tonsillectomy History of tubal ligation Social History Smoking Status: Never smoker alcohol intake: never ROS ROS Narrative Negative except history Physical Exam Narrative Alert awake no obvious distress no pallor no icterus no JVD s1s2 no murmurs lungs clear abdomen soft no organomegaly no edema no cyanosis taylor + Lab / Micro Data Result Diagrams: 03/17/21 06:10 03/17/21 06:10 Labs: Laboratory Results - last 24 hr 03/16/21 07:07: Diff Path Review Reviewed 03/16/21 07:07: Immature Plt Fraction 9.5 H, Retic Count 1.21, Immature Retic Fraction 13.30, Retic Hgb Equivalent 26.5 L 03/16/21 07:07: Lactate Dehydrogenase 283 H, Total Creatine Kinase 1173 H, Troponin I High Sens 639 H* 03/16/21 07:07: Direct Antiglob Test NEG w/POLYSPECIFIC 03/17/21 06:10: WBC 10.9, RBC 3.45 L, Hgb 8.8 L, Hct 28.3 L, MCV 82.0, MCH 25.5 L, MCHC 31.1 L, RDW Std Deviation 56.2 H, RDW Coeff of Tiburcio 19.0 H, Plt Count 25 L*, MPV 12.4 H, Immature Gran % (Auto) 0.500, Neut % (Auto) 88.0 H, Lymph % (Auto) 5.8 L, [place] % (Auto) 5.4, Eos % (Auto) 0.1, Baso % (Auto) 0.2, Absolute Neuts (auto) 9.6 H, Absolute Lymphs (auto) 0.63 L, Nucleated RBC % 0.5, Differential Comment SCANNED, Diff Path Review Reviewed, Platelet Estimate MKD 03/17/21 06:10: Sodium 149 H, Potassium 3.2 L, Chloride 120 H, Carbon Dioxide 22.0, Anion Gap 7, BUN 92 H, Creatinine 2.53 H, Estim Creat Clear Calc 14.04, Est GFR (MDRD) Af Amer 23 L, Est GFR (MDRD) Non-Af 19 L, BUN/Creatinine Ratio 36.4 H, Glucose 83, Calcium 8.5, Phosphorus 3.1, Magnesium 2.2, Total Bilirubin 0.80, AST 45 H, ALT 71 H, Alkaline Phosphatase 99, Total Protein 5.0 L, Albumin 1.6 L, Globulin 3.4, Albumin/Globulin Ratio 0.5 L Micro: Microbiology 03/15/21 12:00 Blood Culture (Wb) - Right Hand Blood Culture - Final GNR lactose manager applied 03/15/21 09:15 Blood Culture (Wb) - Left Hand Blood Culture - Final Klebsiella pneumoniae sp pneum 03/15/21 10:00 Urine, Catheterized Urine Culture - Final Klebsiella pneumoniae sp pneum 03/15/21 09:21 Nasal Secretion SARS-CoV-2 Antigen (Rapid) - Final
[2021-03-17] MEDS: Pantoprazole Sodium 40 MG Tablet PO (12:19)
[2021-03-17] MEDS: Citalopram 10 MG Tablet PO (12:19)
[2021-03-17] MEDS: CARBIDOPA/LEVODOPA CR 50/200 Tablet PO ×2 (12:20→17:09)
--- NOTE | 2021-03-17 12:55 | PN.HOSP_ITS ---
Documented by User: Brian MARTINEZ 03/17/21 13:14 Subjective Subjective Patient is an 86-year-old female comfortably resting in bed, alert and orient x3. Patient's mental status has greatly improved from yesterday as she is now able to interact in voice questions. Interaction is still limited as she has chronic speech difficulties. Does not appear in acute distress. Objective Data Objective Data Vital Signs: Vital Signs Temp Pulse Resp BP Pulse Ox 98.6 F 79 20 H 112/65 95 03/17/21 09:20 03/17/21 09:20 03/17/21 09:20 03/17/21 09:20 03/17/21 09:20 Oxygen Delivery Method Room Air Weight: 131 lb 6.328 oz Body Mass Index (BMI) 22.6 Intake & Output: Intake and Output for Last 24 Hours 03/15/21 03/16/21 03/17/21 23:59 23:59 23:59 Intake Total 3142.5 / 3142.5 3382.5 / 3382.5 50 / 50 Output Total 700 / 900 1500 / 1500 300 / 300 Balance 2442.5 / 2242.5 1882.5 / 1882.5 -250 / -250 Lab / Micro Data Result Diagrams: 03/17/21 06:10 03/17/21 06:10 Labs: Laboratory Results - last 24 hr 03/16/21 07:07: Diff Path Review Reviewed 03/16/21 07:07: Immature Plt Fraction 9.5 H, Retic Count 1.21, Immature Retic Fraction 13.30, Retic Hgb Equivalent 26.5 L 03/16/21 07:07: Lactate Dehydrogenase 283 H, Total Creatine Kinase 1173 H, Troponin I High Sens 639 H* 03/16/21 07:07: Direct Antiglob Test NEG w/POLYSPECIFIC 03/17/21 06:10: WBC 10.9, RBC 3.45 L, Hgb 8.8 L, Hct 28.3 L, MCV 82.0, MCH 25.5 L, MCHC 31.1 L, RDW Std Deviation 56.2 H, RDW Coeff of Tiburcio 19.0 H, Plt Count 25 L*, MPV 12.4 H, Immature Gran % (Auto) 0.500, Neut % (Auto) 88.0 H, Lymph % (Auto) 5.8 L, [place] % (Auto) 5.4, Eos % (Auto) 0.1, Baso % (Auto) 0.2, Absolute Neuts (auto) 9.6 H, Absolute Lymphs (auto) 0.63 L, Nucleated RBC % 0.5, Differential Comment SCANNED, Diff Path Review Reviewed, Platelet Estimate MKD 03/17/21 06:10: Sodium 149 H, Potassium 3.2 L, Chloride 120 H, Carbon Dioxide 22.0, Anion Gap 7, BUN 92 H, Creatinine 2.53 H, Estim Creat Clear Calc 14.04, Est GFR (MDRD) Af Amer 23 L, Est GFR (MDRD) Non-Af 19 L, BUN/Creatinine Ratio 36.4 H, Glucose 83, Calcium 8.5, Phosphorus 3.1, Magnesium 2.2, Total Bilirubin 0.80, AST 45 H, ALT 71 H, Alkaline Phosphatase 99, Total Protein 5.0 L, Albumin 1.6 L, Globulin 3.4, Albumin/Globulin Ratio 0.5 L Micro: Microbiology 03/15/21 12:00 Blood Culture (Wb) - Right Hand Blood Culture - Final GNR lactose non destructive testing technician 03/15/21 09:15 Blood Culture (Wb) - Left Hand Blood Culture - Final Klebsiella pneumoniae sp pneum 03/15/21 10:00 Urine, Catheterized Urine Culture - Final Klebsiella pneumoniae sp pneum 03/15/21 09:21 Nasal Secretion SARS-CoV-2 Antigen (Rapid) - Final Physical Exam Const alert, oriented x3 and no apparent distress HEENT head/scalp atraumatic and moist oral mucous membranes Head and Scalp: normocephalic Eyes PERRL, EOMs intact bilaterally and conjunctivae normal Neck no lymphadenopathy, supple and no JVD Resp normal respiratory effort, no retractions, no use of accessory muscles and clear to auscultation bilaterally Cardio regular rate, regular rhythm, no murmurs and no JVD GI normal to inspection, nondistended, normoactive bowel sounds, soft to palpation and non-tender Extremity normal to inspection, full ROM and no clubbing, cyanosis or edema Peripheral Pulses: Yes pulses 2+ throughout Skin no rashes or lesions noted, no wounds, skin turgor normal and no jaundice Neuro CN's II-XII intact bilaterally Psych affect normal Assessment & Plan Assessment/Plan (1) Acute encephalopathy: (2) Fall at home: QUALIFIERS: Encounter type: initial encounter Qualified Code(s): W19.XXXA - Unspecified fall, initial encounter; Y92.009 - Unspecified place in unspecified non-institutional (private) residence as the place of occurrence of the external cause (3) Acute alteration in mental status: (4) Acute kidney injury: (5) Acute dehydration: PLAN: Day 2 Discharge planning: Discharge to [facility] when patient is medically ready and pending pre-CERT. 1) sepsis secondary to acute cystitis Met criteria for sepsis on admission. Currently, vital signs are stable and patient is afebrile. Patient's white count has resolved and is currently 10,000. Blood cultures grew gram-negative rods lactose non destructive testing technician, urine cultures grew Klebsiella pneumonia. Klebsiella does show susceptibility to ceftriaxone, so we will continue. Rapid Covid was negative. Lactate was 2.7 on admission. plan; remain admitted to PCU, continue Rocephin, ID consult ordered, continue to trend CBC. 2) acute encephalopathy status post fall Likely infectious, in the absence of other evidence. Much improved from admission and yesterday, patient is able to interact in room and voiced some questions. Patient is able to better comprehend when things are written down to her, as opposed to being spoken to. Overall mentation is still difficult to ascertain as patient has chronic speech issues. Imaging obtained in the ED was unremarkable and did not show any acute traumatic process or evidence of ischemia or infarction. Plan; as above. 3) rhabdomyolysis CK level currently 1173, was 3390 on admission. Nephrology has been consulted and would like IV fluids to be continued, no indication for dialysis at this time. Likely due to dehydration secondary to fall, continue IV fluids. 4) elevated troponin Initial troponin was elevated at 640, unclear etiology. EKG was normal sinus rhythm, and patient is without chest pain or shortness of breath. Continue cardiac telemetry monitoring and monitor for signs of ischemia. 5) MARLINE Creatinine currently 2.5, down from admission, baseline appears around 1. Likely secondary to dehydration with fall, continue IV fluids. Continue to trend BMP. 6) thrombocytopenia Platelets have continued to trend down from admission, currently 25,000. Unclear etiology considering HUS versus TTP. Case was discussed with Dr. Pompa who agreed to see patient. Haptoglobin pending and no schistocytes were seen on peripheral smear. DVT Prophylaxis - SCD's Patient seen by Brian Echols PA-C, under the supervision of Dr. Hughes Documented by User: Dr. Kyle Hughes MD 03/17/21 17:28 Objective Data Lab / Micro Data Result Diagrams: 03/17/21 06:10 03/17/21 06:10 Physical Exam Narrative Seen and examined. Patient is more awake and alert. Talk to the patient's daughter at length near the bedside. General: Awake and alert and oriented x3. Patient follows simple commands. HEENT: Atraumatic, PERRLA, EOMI, Normocephalic Oral: Oral mucosa moist. Patient had upper palate surgery and facial rec onstruction. Neck: Supple, No JVD, Negative Carotid Bruits Lungs: Air entry diminished in bilateral lung bases. No crepitation/rhonchi Cardiovascular: Regular rate, Regular Rhythm, Normal S1, Normal S2, No murmurs Abdomen: Bowel Sounds Present, Soft, Non Tender, Non-Distended : No renal angle tenderness. No suprapubic tenderness. Extremities: No edema, Capillary Refill Less than 3 Seconds Skin: Bruise over right lower leg. Musculoskeletal: No Tenderness to Palpation of Joints or Extremities Neurological: Cranial nerves II-XII grossly intact, no obvious lateralization sign. Psych/Mental Status: Flat affect Assessment & Plan Assessment/Plan (1) Rhabdomyolysis: QUALIFIERS: Rhabdomyolysis type: non-traumatic Qualified Code(s): M62.82 - Rhabdomyolysis PLAN: This patient was seen in conjunction with JUAN Adame. I have independently interviewed and examined the patient and reviewed pertinent hist ory, examination findings, laboratory and plan of management. I have reviewed the note and agree with the documented findings with the few additional points. In brief, patient is admitted for acute encephalopathy and fall. Acute encephalopathy probably multiple etiologies, metabolic from rhabdomyolysis, electrolyte abnormality and infection. Yesterday, patient denied burning micturition but UA shows 3+ bacteria, LE positive nitrite negative. Empirically started on IV antibiotics ceftriaxone. Blood and urine culture shows gram- negative tammie, lactose non destructive testing technician. Patient has leukocytosis, lactic acidosis 2.7, high CK and isolated troponin. EKG low voltage nondiagnostic. ID is consulted. 03/16: Acute kidney injury: IV fluid changed to bicarb drip at 150 mill per hour. Slight improvement in kidney function. Wood Tank Builder consulted. Patient also has drop in hemoglobin, normocytic normochromic possible hemolytic anemia. Platelet count 39,000 dropped from 87,000. Leukocytosis improving. Hemolytic anemia work-up ordered. 03/17: Discussed with the executive vice president and chief financial officer and acting teacher. There is suspicion for HUS. I talked to the pathologist Dr. Connor Dillon. Peripheral blood smear revi ewed and there are acanthocytes and spherocytes but not schistocytes. Patient has uremia, kidney dysfunction, altered mental status although much improved today, and diarrhea therefore suspicion for HUS. Hvac Engineer Dr. Pickering is consulted and I talked to him. 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 Patient BUN and creatinine is improving. No clinical suspicion of HUS and therefore ruled out. It seems her peripheral blood smear is more consistent with splenectomy, immunocompromised state with spherocytes. She had normal platelet count in 2019. Very suspected bone marrow suppression from sepsis and possible from antibiotic, cephalosporin. Rocephin was discontinued started on Cipro. Anemia most likely from bone marrow suppression. No evidence for iron or B12 deficiency. LDH mildly elevated. Direct antiglobulin test negative. Patient advised to follow-up with Dr. Bettencourt after discharge. I talked to the patient's daughter, power of litigation attorney associate and talked to more than 15 minutes regarding different medical complications including anemia, kidney failure, bacteremia and altered mental status and explained the pathophysiology mechanism and management plan. Total time of the visit including total time spent in counseling or coordination of care, (more than 50% of the total time, spent in obtaining medical information from nurses and other ancillary care providers,explaining to the patient about labs, imaging, diagnosis and management), discussion with patient's daughter, POA, review of labs and imaging is 30 minutes. According to her living will, patient is DNR CC arrest with no intubation I have discussed my assessment with JUAN Adame and orders have been reviewed. Charges/Coding Visit Charges Inpatient E&M: 61410 Subs Hosp L3
[2021-03-17 14:00] LABS: Vitamin B12 > 2000 pg/mL (211-911)
[2021-03-17 14:06] LABS: Ferritin 115 ng/mL (8-252); Iron Binding Capacity,Total 239 ug/dL (250-450)
--- NOTE | 2021-03-17 14:28 | CHAPLAIN ---
Type of Pastoral Visit _x__ Initial Visit ___ Follow-up Visit ___ On-call Visit ___ General Patient Visit ___ Spiritual Assessment ___ Family Conference ___ Bereavement ___ Rapid Response ___ Code Blue ___ Other (describe below) Pastoral Care Referral From ___ Patient _x__ Family ___ Nurse ___ Physician ___ Stage Technician ___ Press Operator [employer] ___ Other (describe below) Sacrament/Intervention _x__ Active listening ___ Anointing ___ Protestant ___ Bereavement ___ Communion ___ Marlys exploration ___ _x__ Life review _x__ Prayer ___ Reconciliation ___ Sacrament of Sick _x__ Supportive presence ___ Wedding ___ Other (describe below) Pastoral Comments patient is being fed her lunch by SLIP PRESSER; daughter at bedside; daughter speaks of desire for other family members to be admitted to see pt but acknowledges hospital policy; pt waves and smiles at this early education teacher and responds with a nod for prayer;
[2021-03-17] MEDS: 0.9% Normal Saline 1,000 ML 100 ML IV (15:46)
[2021-03-17] MEDS: Acetaminophen 325 MG Tablet 650 MG PO ×2 (15:47→20:13)
--- NOTE | 2021-03-17 16:02 | CON.PCM.ON_ITS ---
Assessment & Plan Assessment/Plan (1) Thrombocytopenia: Status: Acute Code(s): D69.6 - Thrombocytopenia, unspecified Plan: She had a normal platelet count in 2020, admitted with a low platelet count of 80 7K, progressively dropped during the hospital stay, suspect bone marrow suppression from sepsis and further drop from antibiotics (cephalosporin). Patient is not bleeding and therefore platelet transfusion is not indicated unless less than 10K. Advise changing antibiotics to a different group and watchful. We will follow-up following discharge and recovery from acute illness with repeat blood counts and consider further work-up if persistent. Impression and plan discussed with patient, her daughter and Dr. Hughes (2) Anemia: Status: Acute Code(s): D64.9 - Anemia, unspecified Plan: Anemia is acute most likely secondary to bone marrow suppression from sepsis on top of chronic hereditary spherocytosis. Patient is status post splenectomy. No evidence for iron or B12 deficiencies, no evidence to suggest active hemolysis. Her H&H declined as she received fluid hydration for MARLINE and rhabdomyolysis. No specific recommendations apart from watchful. (3) Hereditary spherocytosis: Status: Chronic Code(s): D58.0 - Hereditary spherocytosis Plan: Patient is status post splenectomy which eliminates hemolysis but spherocytosis is lifelong. No intervention (4) Status post splenectomy: Status: Acute Code(s): Z90.81 - Acquired absence of spleen Plan: She is immune compromised therefore and this is a contributing factor to her sepsis. Treatment with antibiotics as per primary service. (5) Leukocytosis: Status: Acute Code(s): D72.829 - Elevated white blood cell count, unspecified Plan: Acute mature neutrophilic with left shift consistent with reactive to sepsis, is improving with antibiotics. HPI Consult Data Date of Service:: 03/17/21 PCP / Referring Provider: Dr. Mary Krueger DO Attending: Dr. Kyle Hughes MD Chief Complaint Chief Complaint: Fall History of Present Illness History of Present Illness: 86-year-old female was hospitalized from the emergency room following a fall and laying on the floor for an unknown duration time. Her past medical history is notable for Parkinson's disease, cerebrovascular disease, hereditary spherocytosis status post splenectomy in young adulthood, hypertension, dyslipidemia, hypothyroidism, history of DVT and pulmonary embolism, hiatus hernia and history of oral cancer treated surgically in 2019 at [facility] with a residual chronic sore. She has had chronic genital prolapse, recently underwent a biopsy from a lesion on the cervix with malignancy suspected and definitive surgery was to be scheduled. On admission she was noted to have an altered mental status, MARLINE, rhabdomyolysis and urosepsis. She is improving with hydration and antibiotics. Hematology consulted for abnormal CBC notable for leukocytosis, worsening anemia and thrombocytopenia. See table for district representative blood counts. Laboratory Tests 07/29/19 03/15/21 03/16/21 08:53 09:20 07:07 WBC 8.6 24.6 H 19.1 H Hgb 10.8 L 11.8 L 8.9 L Plt Count 403 87 L 39 L* Absolute Neuts (auto) 3.9 23.8 H 17.7 H 03/17/21 06:10 WBC 10.9 Hgb 8.8 L Plt Count 25 L* Absolute Neuts (auto) 9.6 H Advanced Directives Power of Web Development Intern: No Living Will: No [facility] Medical History (Updated 03/17/21 @ 16:[address] 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 tricuspid valve regurgitation Parkinson disease Premature atrial contractions Premature ventricular contraction Home Medications pantoprazole 40 mg tablet,delayed release 40 mg PO DAILY 01/26/18 [History Last Taken Unknown] carbidopa ER 50 mg-levodopa 200 mg tablet,extended release 1 tab PO TID 03/08/19 [History Last Taken Unknown] citalopram 10 mg tablet 10 mg PO DAILY 03/08/19 [History Last Taken Unknown] atorvastatin 20 mg tablet 20 mg PO DAILY #90 tab 03/25/20 [Rx Last Taken Unknown] amlodipine 10 mg tablet 10 mg PO DAILY #90 tab 03/12/21 [Rx Last Taken Unknown] cyanocobalamin (vitamin B-12) 1,000 mcg PO DAILY 03/15/21 [History Last Taken Unknown] Allergy/AdvReac Type Severity Reaction Status Date / Time Penicillins Allergy Unknown Unknown Verified 03/15/21 08:38 Family History Father Cancer Prostate Mother Alzheimers disease Surgical History (Updated 03/17/21 @ 16:[address] Aletha Pickering MD) History of blepharoplasty History of shoulder surgery History of splenectomy History of tonsillectomy History of tubal ligation Status post splenectomy Social History Smoking Status: Never smoker alcohol intake: never ROS ROS Narrative Review of systems was obtained from patient's daughter and patient. Patient is quite hard of hearing, does not recall the events around the fall and initial hospitalization. Constitutional Constitutional: Denies fever(s) or weight loss ENT HEENT: Denies dysphagia Cardiovascular Cardiovascular: Denies chest pain, dyspnea or edema Respiratory/Chest Respiratory/Chest: Denies cough, dyspnea or breast mass Gastrointestinal Gastrointestinal: Reports other Details: Has bouts of constipation and diarrhea and urge incontinence. When found on the floor was soiled with stools but no witnessed bleeding ; Denies abdominal pain, hematochezia, melena, nausea or vomiting Genitourinary Genitourinary: Reports urinary incontinence and other Details: Genital prolapse and urge incontinence ; Denies dysuria or hematuria Musculoskeletal Musculoskeletal: Denies back pain Integumentary Integumentary: Denies rash Neurologic Neurologic: Reports confusion and other Details: Altered mental status is improving since admission though not back to normal according to daughter ; Denies headache(s) Hematologic/Lymphatic Hematologic/Lymphatic: Denies easy bleeding, easy bruising or lymphadenopathy Physical Exam Narrative Elderly, frail, ECOG 3, parkinsonian Const no apparent distress General Appearance: comfortable and frail Orientation / Consciousness: oriented to person HEENT normocephalic and moist oral mucous membranes HEENT Narrative: Lower lip deformity but no open wound Eyes conjunctivae normal and no scleral icterus Neck no lymphadenopathy and no JVD Lymph Lymphatic: no lymphadenopathy noted Resp normal respiratory effort and clear to auscultation bilaterally Cardio regular rate and regular rhythm GI soft to palpation, non-tender and no masses GI Narrative: Scar of prior splenectomy Palpation: Negative for hepatomegaly Bladder / Kidney Exam: catheter in place Extremity no clubbing, cyanosis or edema Skin General Skin Exam: Negative for jaundice, petechiae or purpura Neuro moves all extremities and no focal motor deficits Neuro Narrative: Parkinsonian, hard of hearing Motor Exam: general weakness Psych mental status grossly normal and cooperative; Negative for speech normal Psych Narrative: Speech is slow and slurred but according to patient's daughter this is chronic Vital Signs Temperature 98.6 F 03/17/21 09:20 Temperature Source Oral 03/17/21 09:20 Pulse Rate 91 03/17/21 15:06 Pulse Strength Normal (2+) 03/17/21 09:33 Respiratory Rate 20 H 03/17/21 09:20 Respiratory Effort Non-Labored 03/17/21 03:15 Respiratory Depth Normal 03/17/21 03:15 Respiratory Pattern Normal 03/17/21 03:15 Blood Pressure 112/65 03/17/21 09:20 Blood Pressure Mean 80 03/17/21 09:20 Blood Pressure Source Monitor 03/17/21 09:20 Blood Pressure Position Semi-Fowlers 03/17/21 09:20 Blood Pressure Location Left Arm 03/17/21 09:20 Pulse Ox 95 03/17/21 09:20 Oxygen Delivery Method Room Air 03/17/21 09:20 Laboratory Results - last 24 hr 03/17/21 06:10: WBC 10.9, RBC 3.45 L, Hgb 8.8 L, Hct 28.3 L, MCV 82.0, MCH 25.5 L, MCHC 31.1 L, RDW Std Deviation 56.2 H, RDW Coeff of Tiburcio 19.0 H, Plt Count 25 L*, MPV 12.4 H, Immature Gran % (Auto) 0.500, Neut % (Auto) 88.0 H, Lymph % (Auto) 5.8 L, [place] % (Auto) 5.4, Eos % (Auto) 0.1, Baso % (Auto) 0.2, Absolute Neuts (auto) 9.6 H, Absolute Lymphs (auto) 0.63 L, Nucleated RBC % 0.5, Differential Comment SCANNED, Diff Path Review Reviewed, Platelet Estimate MKD 03/17/21 06:10: Sodium 149 H, Potassium 3.2 L, Chloride 120 H, Carbon Dioxide 22.0, Anion Gap 7, BUN 92 H, Creatinine 2.53 H, Estim Creat Clear Calc 14.04, Est GFR (MDRD) Af Amer 23 L, Est GFR (MDRD) Non-Af 19 L, BUN/Creatinine Ratio 36.4 H, Glucose 83, Calcium 8.5, Phosphorus 3.1, Magnesium 2.2, Total Bilirubin 0.80, AST 45 H, ALT 71 H, Alkaline Phosphatase 99, Total Protein 5.0 L, Albumin 1.6 L, Globulin 3.4, Albumin/Globulin Ratio 0.5 L 03/17/21 06:10: Vitamin B12 > 2000 H 03/17/21 06:10: TIBC 239 L, Ferritin 115 March 16, 2021 reticulocyte count 1.2 percent and haptoglobin is pending. I personally reviewed patient's peripheral blood smear of March 17, 2021, no schistocytes, spherocytes noted, no nucleated red blood cells, myeloid series normal with a left shift and no blasts, platelets markedly decreased. A direct Pedro Luis test is negative, LDH minimally elevated less than 2 fold, total bilirubin was minimally elevated on admission and normalized, iron and B12 studies showed no deficiencies. Microbiology 03/15/21 12:00 Blood Culture (Wb) - Right Hand Blood Culture - Final GNR lactose glass washer 03/15/21 09:15 Blood Culture (Wb) - Left Hand Blood Culture - Final Klebsiella pneumoniae sp pneum 03/15/21 10:00 Urine, Catheterized Urine Culture - Final Klebsiella pneumoniae sp pneum Diagnostic Data Brain CT 03/15/21 09:07 IMPRESSION: Chronic involutional changes of the brain. Electronically Signed: Huy Barclay MD at 10:37 EDT , Service support , Cervical Spine CT 03/15/21 09:07 IMPRESSION: Multilevel degenerative changes, as described above. Electronically Signed: Huy Barclay MD at 10:35 EDT , Service support , Pelvis X-Ray 03/15/21 09:07 IMPRESSION: Degenerative changes. No acute abnormality is seen. Electronically Signed: Huy Barclay MD at 10:43 EDT , Service support , Shoulder X-Ray 03/15/21 09:07 IMPRESSION: There is a type III right acromioclavicular joint separation. Degenerative changes of the glenohumeral joint. Electronically Signed: Huy Barclay MD at 10:44 EDT , Service support , Chest X-Ray 03/15/21 10:17 IMPRESSION: Hyperinflation. The lungs are clear. Scattered calcified granulomas. Electronically Signed: Huy Barclay MD at 10:42 EDT , Service support , Abdomen/Pelvis CT 03/15/21 10:19 IMPRESSION: Stable examination. Mildly distended gallbladder. I suspect sludge within the gallbladder lumen. Electronically Signed: Huy Barclay MD at 10:52 EDT , Service support ,
[2021-03-17] MEDS: Ciprofloxacin 400 MG/200 ML BAG 100 MG IV (17:09)
--- NOTE | 2021-03-17 17:34 | PCM.CONS.GEN ---
Assessment & Plan Assessment/Plan (1) Leukocytosis: (2) Acute encephalopathy: (3) Thrombocytopenia: (4) Bacteremia due to Gram-negative bacteria: PLAN: Suspected urinary source. Ucx and bcx with klebs. Ceftriaxone changed to cipro due to low plats. MARLINE improved. Will follow, thank you HPI Consult Data Date of Consult: 03/17/21 HPI Narrative HPI Narrative: RAE SANDHU, is a 86 F who presented after being found down on the floor. Pt unable to provide much history. No fever, denies pain. Full ROS performed and neg except as noted above. [facility] Medical History Asthma Bilateral carotid artery stenosis Carotid bruit Congenital spherocytosis Diverticulitis Essential hypertension Hereditary spherocytosis History of DVT (deep vein thrombosis) History of hiatal hernia History of pulmonary embolism Hyperlipidemia Hypothyroidism Malignant neoplasm of mouth (~04/2019) Nonrheumatic tricuspid valve regurgitation Parkinson disease Premature atrial contractions Premature ventricular contraction Home Medications pantoprazole 40 mg tablet,delayed release 40 mg PO DAILY 01/26/18 [History Last Taken Unknown] carbidopa ER 50 mg-levodopa 200 mg tablet,extended release 1 tab PO TID 03/08/19 [History Last Taken Unknown] citalopram 10 mg tablet 10 mg PO DAILY 03/08/19 [History Last Taken Unknown] atorvastatin 20 mg tablet 20 mg PO DAILY #90 tab 03/25/20 [Rx Last Taken Unknown] amlodipine 10 mg tablet 10 mg PO DAILY #90 tab 03/12/21 [Rx Last Taken Unknown] cyanocobalamin (vitamin B-12) 1,000 mcg PO DAILY 03/15/21 [History Last Taken Unknown] Allergy/AdvReac Type Severity Reaction Status Date / Time Penicillins Allergy Unknown Unknown Verified 03/15/21 08:38 Family History Father Cancer Prostate Mother Alzheimers disease Surgical History (Updated 03/17/21 @ 16:[address] Aletha Pickering MD) History of blepharoplasty History of shoulder surgery History of splenectomy History of tonsillectomy History of tubal ligation Status post splenectomy Social History Smoking Status: Never smoker alcohol intake: never Physical Exam Const no apparent distress General Appearance: cooperative Orientation / Consciousness: confused HEENT normocephalic and head/scalp atraumatic Eyes PERRL and EOMs intact bilaterally Neck supple and No nodes Resp normal air movement and clear to auscultation bilaterally Cardio regular rate and regular rhythm GI normal to inspection, nondistended, normoactive bowel sounds Extremity no clubbing, cyanosis or edema Skin no rashes or lesions noted Neuro CN's II-XII intact bilaterally Lab / Micro Data Result Diagrams: 03/17/21 06:10 03/17/21 06:10 Labs: Laboratory Results - last 24 hr 03/17/21 06:10: WBC 10.9, RBC 3.45 L, Hgb 8.8 L, Hct 28.3 L, MCV 82.0, MCH 25.5 L, MCHC 31.1 L, RDW Std Deviation 56.2 H, RDW Coeff of Tiburcio 19.0 H, Plt Count 25 L*, MPV 12.4 H, Immature Gran % (Auto) 0.500, Neut % (Auto) 88.0 H, Lymph % (Auto) 5.8 L, [place] % (Auto) 5.4, Eos % (Auto) 0.1, Baso % (Auto) 0.2, Absolute Neuts (auto) 9.6 H, Absolute Lymphs (auto) 0.63 L, Nucleated RBC % 0.5, Differential Comment SCANNED, Diff Path Review Reviewed, Platelet Estimate MKD 03/17/21 06:10: Sodium 149 H, Potassium 3.2 L, Chloride 120 H, Carbon Dioxide 22.0, Anion Gap 7, BUN 92 H, Creatinine 2.53 H, Estim Creat Clear Calc 14.04, Est GFR (MDRD) Af Amer 23 L, Est GFR (MDRD) Non-Af 19 L, BUN/Creatinine Ratio 36.4 H, Glucose 83, Calcium 8.5, Phosphorus 3.1, Magnesium 2.2, Total Bilirubin 0.80, AST 45 H, ALT 71 H, Alkaline Phosphatase 99, Total Protein 5.0 L, Albumin 1.6 L, Globulin 3.4, Albumin/Globulin Ratio 0.5 L 03/17/21 06:10: Vitamin B12 > 2000 H 03/17/21 06:10: TIBC 239 L, Ferritin 115 Micro: Microbiology 03/15/21 12:00 Blood Culture (Wb) - Right Hand Blood Culture - Final GNR lactose banana expert 03/15/21 09:15 Blood Culture (Wb) - Left Hand Blood Culture - Final Klebsiella pneumoniae sp pneum 03/15/21 10:00 Urine, Catheterized Urine Culture - Final Klebsiella pneumoniae sp pneum
[2021-03-17] MEDS: Atorvastatin Calcium 20 MG Tablet PO (20:14)
[2021-03-18] VITALS (13 sets, daily range): BP systolic 103–112; BP diastolic 53–59; PULSE 77–94; RESP 15–20; TEMP 36.7–37.6; O2SAT 93–97
[2021-03-18] MEDS: 0.9% Normal Saline 1,000 ML 100 ML IV (04:03)
[2021-03-18 06:00] LABS: Absolute Lymphocyte Count 0.92 X10^3/uL (0.83-4.51); Absolute Neutrophil Count 8.5 X10^3/uL (2.0-7.7); Basophil# 0.03 X10^3/uL; Basophil% 0.3 % (0-1); Eosinophil# 0.07 X10^3/uL; Eosinophils% 0.7 % (0-5); Hematocrit 30.1 % (37-47); Hemoglobin 9.2 g/dL (12.0-15.0); Lymphocyte # 0.92 X10^3/ul (0.83-4.51); Lymphocyte % 9.2 % (19-41); Mean Corp Hgb Conc 30.6 g/dL (32-36); Mean Corpuscular Hgb 25.7 pg (27.0-32.0); Mean Corpuscular Volume 84.1 fL (81-99); Monocyte# 0.44 X10^3/uL; Monocyte% 4.4 % (0-10); NRBC Flagged by Analyzer 1.1 % (0-5); Neutrophil # 8.46 X10^3/uL (2.7-7.7); Neutrophil % 84.1 % (47-70); POSITIVE COUNT YES; POSITIVE MORPHOLOGY YES; Platelet Count 27 K/mm3 (150-450); RBC Distribution Width CV 19.6 % (11.6-14.6); RBC Distribution Width SD 59.5 fl (35.1-43.9); Red Blood Count 3.58 M/mm3 (4.2-5.4); White Blood Count 10.1 K/mm3 (4.4-11.0)
[2021-03-18 06:38] LABS: Differential Indicated SCAN CRITERIA MET
[2021-03-18] MEDS: CARBIDOPA/LEVODOPA CR 50/200 Tablet PO ×3 (06:41→16:06)
[2021-03-18 06:46] LABS: ALB/GLOB Ratio 0.4 RATIO (0.9-2.4); AST(SGOT) 28 U/L (15-37); Alanine Aminotransfer ALT/SGPT 15 U/L (13-56); Albumin, Serum 1.4 g/dL (3.2-5.0); Alkaline Phosphatase 78 U/L (45-117); Anion Gap 5 (5-15); BUN 75 mg/dL (7-18); BUN/Creat Ratio 37.3 RATIO (10-20); Calcium,Total 8.5 mg/dL (8.5-10.1); Chloride 121 mmol/L (98-107); Creatinine, Serum 2.01 mg/dL (0.55-1.02); EST Glomerular Filtration Rate 25 mL/min (>60); Est Glom Filt Rate - Afr Amer 30 mL/min (>60); Estimated Creatinine Clearance 17.67 ml/min; Globulin 3.7 g/dL (2.2-4.2); Glucose 98 mg/dL (74-106); Potassium 3.4 mmol/L (3.5-5.1); Protein, Total 5.1 g/dL (6.4-8.2); Sodium Level 145 mmol/L (136-145)
--- NOTE | 2021-03-18 06:51 | CASEMGMT ---
Late entry: from yesterday 03-17-21 SCOTT faxed PT/OT evaluations to [facility]. SCOTT also called [facility] and asked Bernadine to start the pre-cert. Kelli Gonzalez MAGAZINE FILLER JUANA
[2021-03-18 07:00] LABS: Burr Cells 3+
[2021-03-18 07:01] LABS: Anisocytosis 2+
[2021-03-18] MEDS: Pantoprazole Sodium 40 MG Tablet PO (08:44)
[2021-03-18] MEDS: Ciprofloxacin 400 MG/200 ML BAG 100 MG IV (08:45)
[2021-03-18 09:32] LABS: Haptoglobin 185 mg/dL (41-333)
--- NOTE | 2021-03-18 10:50 | CT_ITS ---
STUDY: CT BRAIN WITHOUT CONTRAST REASON FOR EXAM: Female, 86 years old. Altered mental status -- H/o Head/neck cancer RADIATION DOSAGE (If Supplied By Facility): CTDIvol = ( 44.99 ) mGy, DLP = ( 798.62 ) mGycm TECHNIQUE: Transaxial CT imaging of the brain was performed without administration of intravenous contrast material. Individualized dose optimization techniques were used for this CT. COMPARISON: Comparison is made with prior examination dated 03/15/2021. FINDINGS: Normal soft tissue structures. Normal calvarium. There is mild cerebral atrophy with widening of the extra-axial spaces and ventricular dilatation. There are areas of decreased attenuation within the white matter tracts of the supratentorial brain, consistent with microvascular disease changes. Normal basal ganglia and thalami. Normal brainstem. Normal cerebellum. There is no intracranial hemorrhage. There are no findings of an acute ischemic infarction. Mucosal thickening of the right maxillary sinus. Minimal residual thickening of the ethmoid sinuses. Once again, the patient is status post open reduction and internal fixation of a left maxillary fracture. CT/Brain/Head without Contrast IMPRESSION: Chronic involutional changes of the brain. Stable examination. Electronically Signed: Huy Barclay MD at 13:39 EDT , Service support ,
[2021-03-18] MEDS: Potassium Chloride Oral Tablet 20 MEQ 40 MEQ PO (11:48)
--- NOTE | 2021-03-18 12:47 | TELEMED_ITS ---
[facility] Tele[facility] has confirmed receipt of a request for visit. This document confirms receipt of the order initiating the consult. To find the results of the consultation, please view the patient's reports for the scanned Telemed Consult.
--- NOTE | 2021-03-18 12:50 | PCM.PN.HOSP ---
Documented by User: Cathy Ashley NP-C 03/18/21 13:07 Subjective Subjective Patient seen and examined. Patient's mental status improved, able to communicate. 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 Patient noted to have limited speech abilities due to chronic issues. Patient denies pain or other needs at this time. Objective Data Objective Data Vital Signs: Vital Signs Temp Pulse Resp BP Pulse Ox 98.0 F 92 18 103/53 L 94 03/18/21 09:04 03/18/21 09:04 03/18/21 09:04 03/18/21 09:04 03/18/21 11:11 Oxygen Delivery Method Room Air Weight: 131 lb 6.328 oz Body Mass Index (BMI) 22.6 Intake & Output: Intake and Output for Last 24 Hours 03/16/21 03/17/21 03/18/21 23:59 23:59 23:59 Intake Total 3382.5 / 3382.5 1836.67 / 1936.67 1518.33 / 1518.33 Output Total 1500 / 1500 650 / 1100 550 / 550 Balance 1882.5 / 1882.5 1186.67 / 836.67 968.33 / 968.33 Lab / Micro Data Result Diagrams: 03/18/21 05:26 03/18/21 05:26 Labs: Laboratory Results - last 24 hr 03/17/21 06:10: Haptoglobin 185 03/17/21 06:10: Vitamin B12 > 2000 H 03/17/21 06:10: TIBC 239 L, Ferritin 115 03/18/21 05:26: WBC 10.1, RBC 3.58 L, Hgb 9.2 L, Hct 30.1 L, MCV 84.1, MCH 25.7 L, MCHC 30.6 L, RDW Std Deviation 59.5 H, RDW Coeff of Tiburcio 19.6 H, Plt Count 27 L*, Immature Gran % (Auto) 1.300 H, Neut % (Auto) 84.1 H, Lymph % (Auto) 9.2 L, [place] % (Auto) 4.4, Eos % (Auto) 0.7, Baso % (Auto) 0.3, Absolute Neuts (auto) 8.5 H, Absolute Lymphs (auto) 0.92, Nucleated RBC % 1.1, Diff Path Review May foll, Anisocytosis 2+, Arvilla Cells 3+ 03/18/21 05:26: Sodium 145, Potassium 3.4 L, Chloride 121 H, Carbon Dioxide 19.0 L, Anion Gap 5, BUN 75 H, Creatinine 2.01 H, Estim Creat Clear Calc 17.67, Est GFR (MDRD) Af Amer 30 L, Est GFR (MDRD) Non-Af 25 L, BUN/Creatinine Ratio 37.3 H, Glucose 98, Calcium 8.5, Total Bilirubin 0.50, AST 28, ALT 15, Alkaline Phosphatase 78, Total Protein 5.1 L, Albumin 1.4 L, Globulin 3.7, Albumin/Globulin Ratio 0.4 L Micro: Microbiology 03/15/21 12:00 Blood Culture (Wb) - Right Hand Blood Culture - Final GNR lactose char puller 03/15/21 09:15 Blood Culture (Wb) - Left Hand Blood Culture - Final Klebsiella pneumoniae sp pneum 03/15/21 10:00 Urine, Catheterized Urine Culture - Final Klebsiella pneumoniae sp pneum 03/15/21 09:21 Nasal Secretion SARS-CoV-2 Antigen (Rapid) - Final Physical Exam Const alert and no apparent distress General Appearance: cooperative Orientation / Consciousness: oriented to person and oriented to place HEENT head/scalp atraumatic Head and Scalp: normocephalic Eyes conjunctivae normal and no scleral icterus Neck full ROM and supple Resp normal respiratory effort, normal air movement and clear to auscultation bilaterally Effort and Inspection: able to speak in complete sentences and symmetric chest movement Cardio regular rate, regular rhythm, S1 normal heart sound, S2 normal heart sound and peripheral pulses 2+ throughout GI normal to inspection, nondistended, normoactive bowel sounds, soft to palpation and non-tender Extremity normal to inspection, full ROM and no clubbing, cyanosis or edema Peripheral Pulses: Yes pulses 2+ throughout Skin no rashes or lesions noted, no wounds and skin turgor normal Neuro moves all extremities, no focal motor deficits and no sensory deficits noted Sensorium / Orientation: alert Psych cooperative and affect normal Speech: minimal and slurred Assessment & Plan Assessment/Plan (1) Bacteremia due to Gram-negative bacteria: (2) Acute encephalopathy: (3) Thrombocytopenia: (4) Acute UTI: PLAN: 1. Sepsis secondary to acute cystitis -Vital signs stable, patient afebrile -Urine culture positive for Klebsiella -Continue Rocephin -ID consulted -CBC daily 2. Acute encephalopathy -Likely secondary to infection as patient has improved with antibiotics -Patient has chronic speech issues which makes it difficult to evaluate mental status however patient does respond to written questions appropriately 3. Rhabdomyolysis -Nephrology following -Continue IV fluids 4. Elevated troponin -EKG normal sinus rhythm -Continue cardiac monitoring 5. MARLINE -Creatinine continues to improve -Daily BMPs ordered -Nephrology following 6. Thrombocytopenia -Dr. Pickering following -Slightly improved today -Antibiotics changed yesterday at Dr. Pickering recommendation DVT prophylaxis-SCDs This patient was seen by Cathy Ashley NP-C under the supervision of Dr. Hughes. DVT prophylaxis Documented by User: Dr. Kyle Hughes MD 03/18/21 15:05 Subjective Subjective Patient is awake and alert. Patient is limited oral opening due to reconstruction of upper palate. She has history of oral/head and neck cancer and possible neoplastic/malignant seen cervix was planned for outpatient evaluation by senior online marketing manager. Her daughter has concern regarding TIA/stroke because of altered mental status. Chest x-ray and CT ordered. Objective Data Lab / Micro Data Result Diagrams: 03/18/21 05:26 03/18/21 05:26 Physical Exam Narrative Seen and examined. General: Awake and alert and oriented x3. Patient follows simple commands. HEENT: Atraumatic, PERRLA, EOMI, Normocephalic Oral: Oral mucosa moist. Patient had upper palate surgery and facial reconstruction. Neck: Supple, No JVD, Negative Carotid Bruits Lungs: Air entry diminished in bilateral lung bases. No crepitation/rhonchi Cardiovascular: Regular rate, Regular Rhythm, Normal S1, Normal S2, No murmurs Abdomen: Bowel Sounds Present, Soft, Non Tender, Non-Distended : No renal angle tenderness. No suprapubic tenderness. Extremities: No edema, Capillary Refill Less than 3 Seconds Skin: Bruise over right lower leg. Patient has surgical scar over right thigh and right leg for skin graft. Musculoskeletal: Mild weakness mild weakness of both lower extremity, right more than left. No Tenderness to Palpation of Joints or Extremities Neurological: Cranial nerves II-XII grossly intact, no obvious lateralization sign. Psych/Mental Status: Flat affect Assessment & Plan Assessment/Plan (1) Bacteremia due to Gram-negative bacteria: (2) Rhabdomyolysis: QUALIFIERS: Rhabdomyolysis type: non-traumatic Qualified Code(s): M62.82 - Rhabdomyolysis PLAN: This patient was seen in conjunction with GUCCI Morgan. I have independently interviewed and examined the patient and reviewed pertinent history, examination findings, laboratory and plan of management. I have reviewed the note and agree with the documented findings with the few additional points. In brief, patient is admitted for acute encephalopathy and fall. Acute encephalopathy probably multiple etiologies, metabolic from rhabdomyolysis, electrolyte abnormality and infection. Yesterday, patient denied burning micturition but UA shows 3+ bacteria, LE positive nitrite negative. Empirically started on IV antibiotics ceftriaxone. Blood and urine culture shows gram-negative tammie, lactose char puller. Patient has leukocytosis, lactic acidosis 2.7, high CK and isolated troponin. EKG low voltage nondiagnostic. ID is consulted. 03/16: Acute kidney injury: IV fluid changed to bicarb drip at 150 mill per hour. Slight improvement in kidney function. Case Finisher consulted. Patient also has drop in hemoglobin, normocytic normochromic possible hemolytic anemia. Platelet count 39,000 dropped from 87,000. Leukocytosis improving. Hemolytic anemia work-up ordered. 03/17: Discussed with the parts finisher and responder. There was suspicion of HUS ruled out. I talked to the pathologist Dr. Connor Dillon. Peripheral blood smear reviewed and there are acanthocytes and spherocytes but not schistocytes. Patient has uremia, kidney dysfunction, altered mental status although much improved today, and diarrhea therefore suspicion for HUS. Wheel Adjuster Dr. Pickering is consulted and I talked to him. 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 Patient BUN and creatinine is improving. No clinical suspicion of HUS and therefore ruled out. It seems her peripheral blood smear is more consistent with splenectomy, immunocompromised state with spherocytes. She had normal platelet count in 2019. Very suspected bone marrow suppression from sepsis and possible from antibiotic, cephalosporin. Rocephin was discontinued started on Cipro. Anemia most likely from bone marrow suppression. No evidence for iron or B12 deficiency. LDH mildly elevated. Direct antiglobulin test negative. Patient advised to follow-up with Dr. Pickering after discharge. 03/18: Her daughter is concerned about altered mental status, TIA I offered her MRI brain but she might have contraindication she had upper palate reconstruction with metal. She will get back to me after talking to her sibling regarding MRI. Even she has a stroke she will not be candidate for aspirin or statin because of thrombocytopenia and rhabdomyolysis. We agreed on CT head and EEG which are ordered. CT head did not show acute change with mucosal thickening right maxillary sinus. ID consult reviewed for bacteremia due to Klebsiella from complicated UTI. On Cipro. MARLINE improved. Advised incentive spirometry. Hypokalemia, potassium is getting replaced. I talked to the patient's daughter, power of attorney lawyer and talked to more than 15 minutes regarding different medical complications including anemia, kidney failure, bacteremia and altered mental status and explained the pathophysiology mechanism and management plan. Total time of the visit including total time spent in counseling or coordination of care, (more than 50% of the total time, spent in obtaining medical information from nurses and other ancillary care providers,explaining to the patient about labs, imaging, diagnosis and management), discussion with patient's daughter, POA, review of labs and imaging is 30 minutes. According to her living will, patient is DNR CC arrest with no intubation I have discussed my assessment with GUCCI Morgan and orders have been reviewed. Charges/Coding Visit Charges Inpatient E&M: 00267 Subs Hosp L3
--- NOTE | 2021-03-18 14:26 | PN.RENAL_ITS ---
Subjective Subjective no new events Objective Data Objective Data Vital Signs: Vital Signs Temp Pulse Resp BP Pulse Ox 98.0 F 92 18 103/53 L 94 03/18/21 09:04 03/18/21 09:04 03/18/21 09:04 03/18/21 09:04 03/18/21 11:11 Oxygen Delivery Method Room Air Weight: 59.6 kg Body Mass Index (BMI) 22.6 Intake & Output: Intake and Output for Last 24 Hours 03/16/21 03/17/21 03/18/21 23:59 23:59 23:59 Intake Total 3382.5 / 3382.5 1836.67 / 1936.67 1518.33 / 1518.33 Output Total 1500 / 1500 650 / 1100 1050 / 1050 Balance 1882.5 / 1882.5 1186.67 / 836.67 468.33 / 468.33 Lab / Micro Data Result Diagrams: 03/18/21 05:26 03/18/21 05:26 Labs: Laboratory Results - last 24 hr 03/17/21 06:10: Haptoglobin 185 03/18/21 05:26: WBC 10.1, RBC 3.58 L, Hgb 9.2 L, Hct 30.1 L, MCV 84.1, MCH 25.7 L, MCHC 30.6 L, RDW Std Deviation 59.5 H, RDW Coeff of Tiburcio 19.6 H, Plt Count 27 L*, Immature Gran % (Auto) 1.300 H, Neut % (Auto) 84.1 H, Lymph % (Auto) 9.2 L, [place] % (Auto) 4.4, Eos % (Auto) 0.7, Baso % (Auto) 0.3, Absolute Neuts (auto) 8.5 H, Absolute Lymphs (auto) 0.92, Nucleated RBC % 1.1, Diff Path Review May foll, Anisocytosis 2+, Roseann Cells 3+ 03/18/21 05:26: Sodium 145, Potassium 3.4 L, Chloride 121 H, Carbon Dioxide 19.0 L, Anion Gap 5, BUN 75 H, Creatinine 2.01 H, Estim Creat Clear Calc 17.67, Est G FR (MDRD) Af Amer 30 L, Est GFR (MDRD) Non-Af 25 L, BUN/Creatinine Ratio 37.3 H, Glucose 98, Calcium 8.5, Total Bilirubin 0.50, AST 28, ALT 15, Alkaline Phosphatase 78, Total Protein 5.1 L, Albumin 1.4 L, Globulin 3.7, Albumin/Globulin Ratio 0.4 L Micro: Microbiology 03/15/21 12:00 Blood Culture (Wb) - Right Hand Blood Culture - Final GNR lactose pressing machine tender 03/15/21 09:15 Blood Culture (Wb) - Left Hand Blood Culture - Final Klebsiella pneumoniae sp pneum 03/15/21 10:00 Urine, Catheterized Urine Culture - Final Klebsiella pneumoniae sp pneum 03/15/21 09:21 Nasal Secretion SARS-CoV-2 Antigen (Rapid) - Final Radiography Diagnostic Testing: Radiology Impression Brain CT 03/18/21 10:50 IMPRESSION: Chronic involutional changes of the brain. Stable examination. Electronically Signed: Huy Barclay MD at 13:39 EDT , Service support , Physical Exam Narrative Alert awake no obvious distress no pallor no icterus no JVD s1s2 no murmurs lungs clear abdomen soft no organomegaly no edema no cyanosis taylor + Assessment & Plan Assessment/Plan (1) Acute kidney injury: PLAN: Likely related to volume depletion, rhabdomyolysis. Urine analysis is consistent with UTI. Also has bacteremia. CT abdomen without any hydronephrosis. Both BUN and creatinine are better today. Electrolytes are acceptable. No acute indications for dialysis. Patient was noted to have significant decline in platelet count. seen by hematology. unlikely TTP. mental status fluctuating (2) Rhabdomyolysis: QUALIFIERS: Rhabdomyolysis type: non-traumatic Qualified Code(s): M62.82 - Rhabdomyolysis PLAN: Likely related to prolonged immobilization. CPK levels are improving
--- NOTE | 2021-03-18 15:41 | PCM.PN.ID ---
Physical Exam Narrative Feeling ok, mental status slowly improving but not back to baseline per daughter. No fever. Const no apparent distress Resp normal air movement and clear to auscultation bilaterally Cardio regular rate and regular rhythm GI normal to inspection, nondistended, normoactive bowel sounds Skin no rashes or lesions noted ID ID: Route of nutrition/ use of supplements: [] Nutritional Intake: [] IV Site: [] Rojas Catheter: [] Assessment & Plan Assessment/Plan (1) Leukocytosis: (2) Acute encephalopathy: (3) Thrombocytopenia: (4) Bacteremia due to Gram-negative bacteria: PLAN: Suspected urinary source. Ucx and bcx with klebs. Ceftriaxone changed to cipro due to low plats. MARLINE improved. Will follow
[2021-03-18] MEDS: Atorvastatin Calcium 20 MG Tablet PO (21:31)
[2021-03-18] MEDS: 0.9% Saline Lock 10 ML Syringe IV (21:33)
[2021-03-19] VITALS (9 sets, daily range): BP systolic 106–119; BP diastolic 59–65; PULSE 73–89; RESP 14–20; TEMP 36.7–37; O2SAT 93–98
[2021-03-19] MEDS: CARBIDOPA/LEVODOPA CR 50/200 Tablet PO ×3 (06:17→16:54)
[2021-03-19] MEDS: Potassium Chloride Oral Tablet 20 MEQ 40 MEQ PO (09:23)
[2021-03-19] MEDS: Pantoprazole Sodium 40 MG Tablet PO (09:23)
[2021-03-19] MEDS: Ciprofloxacin 400 MG/200 ML BAG 100 MG IV (09:27)
[2021-03-19 09:37] LABS: Pathologist Review Reviewed
--- NOTE | 2021-03-19 10:26 | CASEMGMT ---
SCOTT faxed updates to [facility]. SCOTT also called Bernadine at [facility] and let her know updates were faxed and patient may be ready over the weekend. Plan: d/c to [facility] under skilled level of care pending pre-cert. Kelli Gonzalez REGISTERED OCCUPATIONAL THERAPIST EDGE BANDER OPERATOR
[2021-03-19 10:48] LABS: Absolute Lymphocyte Count 0.91 X10^3/uL (0.83-4.51); Basophil# 0.02 X10^3/uL; Basophil% 0.2 % (0-1); Eosinophil# 0.06 X10^3/uL; Eosinophils% 0.7 % (0-5); Hematocrit 30.4 % (37-47); Hemoglobin 9.2 g/dL (12.0-15.0); Lymphocyte # 0.91 X10^3/ul (0.83-4.51); Lymphocyte % 10.8 % (19-41); Mean Corp Hgb Conc 30.3 g/dL (32-36); Mean Corpuscular Hgb 25.8 pg (27.0-32.0); Mean Corpuscular Volume 85.2 fL (81-99); Monocyte# 0.37 X10^3/uL; Monocyte% 4.4 % (0-10); NRBC Flagged by Analyzer 2.2 % (0-5); Neutrophil # 7.02 X10^3/uL (2.7-7.7); POSITIVE COUNT YES; POSITIVE MORPHOLOGY YES; Platelet Count 49 K/mm3 (150-450); RBC Distribution Width CV 19.5 % (11.6-14.6); Red Blood Count 3.57 M/mm3 (4.2-5.4); White Blood Count 8.5 K/mm3 (4.4-11.0)
[2021-03-19 11:02] LABS: Differential Indicated SCAN CRITERIA MET
[2021-03-19 11:12] LABS: ALB/GLOB Ratio 0.5 RATIO (0.9-2.4); AST(SGOT) 19 U/L (15-37); Alanine Aminotransfer ALT/SGPT 13 U/L (13-56); Albumin, Serum 1.7 g/dL (3.2-5.0); Alkaline Phosphatase 83 U/L (45-117); Anion Gap 7 (5-15); BUN 62 mg/dL (7-18); BUN/Creat Ratio 34.8 RATIO (10-20); Calcium,Total 8.8 mg/dL (8.5-10.1); Chloride 116 mmol/L (98-107); Creatinine, Serum 1.78 mg/dL (0.55-1.02); EST Glomerular Filtration Rate 29 mL/min (>60); Est Glom Filt Rate - Afr Amer 35 mL/min (>60); Estimated Creatinine Clearance 19.95 ml/min; Globulin 3.6 g/dL (2.2-4.2); Glucose 123 mg/dL (74-106); Magnesium 1.9 mg/dL (1.6-2.6); Phosphorus 3.2 mg/dL (2.5-4.9); Potassium 3.9 mmol/L (3.5-5.1); Protein, Total 5.3 g/dL (6.4-8.2); Sodium Level 144 mmol/L (136-145)
[2021-03-19 11:31] LABS: Platelet Estimate MOD DEC (ADEQ)
[2021-03-19 11:33] LABS: Polychromasia 1+
--- NOTE | 2021-03-19 13:13 | PN.HOSP_ITS ---
Documented by User: Cathy Ashley NP-C 03/19/21 13:18 Subjective Subjective Patient seen and examined. Patient sitting in chair no distress noted. Patient appears improved from yesterday. Patient states that she is not having any pain and denies needs at this time. Objective Data Objective Data Vital Signs: Vital Signs Temp Pulse Resp BP Pulse Ox 98.0 F 83 18 114/60 98 03/19/21 09:18 03/19/21 09:18 03/19/21 09:18 03/19/21 09:18 03/19/21 09:18 Oxygen Delivery Method Room Air Weight: 131 lb 6.328 oz Body Mass Index (BMI) 22.6 Intake & Output: Intake and Output for Last 24 Hours 03/17/21 03/18/21 03/19/21 23:59 23:59 23:59 Intake Total 1836.67 / 1936.67 1518.33 / 1518.33 Output Total 650 / 1100 1450 / 1450 1025 / 1025 Balance 1186.67 / 836.67 68.33 / 68.33 -1025 / -1025 Lab / Micro Data Result Diagrams: 03/19/21 10:30 03/19/21 10:30 Labs: Laboratory Results - last 24 hr 03/18/21 05:26: Diff Path Review Reviewed 03/19/21 10:30: WBC 8.5, RBC 3.57 L, Hgb 9.2 L, Hct 30.4 L, MCV 85.2, MCH 25.8 L , MCHC 30.3 L, RDW Std Deviation 61.0 H, RDW Coeff of Tiburcio 19.5 H, Plt Count 49 L*, Immature Gran % (Auto) 0.900, Neut % (Auto) 83.0 H, Lymph % (Auto) 10.8 L, [place] % (Auto) 4.4, Eos % (Auto) 0.7, Baso % (Auto) 0.2, Absolute Neuts (auto) 7.0, Absolute Lymphs (auto) 0.91, Nucleated RBC % 2.2, Diff Path Review May foll, Platelet Estimate MOD DEC, Polychromasia 1+ 03/19/21 10:30: Sodium 144, Potassium 3.9, Chloride 116 H, Carbon Dioxide 21.0, Anion Gap 7, BUN 62 H, Creatinine 1.78 H, Estim Creat Clear Calc 19.95, Est GFR (MDRD) Af Amer 35 L, Est GFR (MDRD) Non-Af 29 L, BUN/Creatinine Ratio 34.8 H, Glucose 123 H, Calcium 8.8, Phosphorus 3.2, Magnesium 1.9, Total Bilirubin 0.70, AST 19, ALT 13, Alkaline Phosphatase 83, Total Protein 5.3 L, Albumin 1.7 L, Globulin 3.6, Albumin/Globulin Ratio 0.5 L Micro: Microbiology 03/15/21 12:00 Blood Culture (Wb) - Right Hand Blood Culture - Final GNR lactose stable attendant 03/15/21 09:15 Blood Culture (Wb) - Left Hand Blood Culture - Final Klebsiella pneumoniae sp pneum 03/15/21 10:00 Urine, Catheterized Urine Culture - Final Klebsiella pneumoniae sp pneum 03/15/21 09:21 Nasal Secretion SARS-CoV-2 Antigen (Rapid) - Final Radiography Diagnostic Testing: Radiology Impression Brain CT 03/18/21 10:50 IMPRESSION: Chronic involutional changes of the brain. Stable examination. Electronically Signed: Huy Barclay MD at 13:39 EDT , Service support , Physical Exam Const alert and no apparent distress General Appearance: cooperative Orientation / Consciousness: oriented to person and oriented to place HEENT normocephalic and head/scalp atraumatic Eyes conjunctivae normal and no scleral icterus Neck full ROM and supple Resp normal respiratory effort, normal air movement and clear to auscultation bilaterally Effort and Inspection: able to speak in complete sentences and symmetric chest movement Cardio regular rate, regular rhythm, S1 normal heart sound, S2 normal heart sound and peripheral pulses 2+ throughout GI normal to inspection, nondistended, normoactive bowel sounds, soft to palpation and non-tender Extremity normal to inspection, full ROM and no clubbing, cyanosis or edema Skin no rashes or lesions noted, no wounds and skin turgor normal Neuro moves all extremities, no focal motor deficits and no sensory deficits noted Sensorium / Orientation: alert Psych cooperative and affect normal Speech: minimal and slurred Assessment & Plan Assessment/Plan (1) Bacteremia due to Gram-negative bacteria: (2) Thrombocytopenia: PLAN: 1. Sepsis secondary to acute cystitis -Vital signs stable, patient afebrile -Urine culture positive for Klebsiella -Continue Rocephin -ID consulted -CBC daily 2. Acute encephalopathy -Likely secondary to infection as patient has improved with antibiotics -Patient has chronic speech issues which makes it difficult to evaluate mental status however patient does respond to written questions appropriately 3. Rhabdomyolysis -Nephrology following -Continue IV fluids 4. Elevated troponin -EKG normal sinus rhythm -Continue cardiac monitoring 5. MARLINE -Creatinine continues to improve -Daily BMP ordered -Nephrology following 6. Thrombocytopenia -Dr. Pickering following -Platelets significantly improved from yesterday up to 49,000 today Discharge planning-plan for patient to go to [facility] upon discharge, awaiting pre-CERT from insurance company. DVT prophylaxis-SCDs This patient was seen by FORTINO Dinh under the supervision of Dr. Hughes. Documented by User: Dr. Kyle Hughes MD 03/19/21 15:32 Subjective Subjective Seen and examined. Patient is sitting in the chair. More alert and awake and participating in conversation. The patient is oriented to time and place and person. Objective Data Lab / Micro Data Result Diagrams: 03/19/21 10:30 03/19/21 10:30 Physical Exam Narrative Seen and examined. General: Awake and alert and oriented x3. Participated no conversation HEENT: Atraumatic, PERRLA, EOMI, Normocephalic Oral: Oral mucosa moist. Patient had upper palate surgery and facial reconstruction. Neck: Supple, No JVD, Negative Carotid Bruits Lungs: Air entry diminished in bilateral lung bases. No crepitation/rhonchi Cardiovascular: Regular rate, Regular Rhythm, Normal S1, Normal S2, No murmurs Abdomen: On modified dysphagia diet. Bowel Sounds Present, Soft, Non Tender, Non-Distended : No renal angle tenderness. No suprapubic tenderness. Extremities: No edema, Capillary Refill Less than 3 Seconds Skin: Bruise over right lower leg. Patient has surgical scar over right thigh and right leg for skin graft. Musculoskeletal: Mild weakness mild weakness of both lower extremity, right more than left. No Tenderness to Palpation of Joints or Extremities Neurological: Cranial nerves II-XII grossly intact, no obvious lateralization sign. Psych/Mental Status: Flat affect Assessment & Plan Assessment/Plan (1) Bacteremia due to Gram-negative bacteria: PLAN: This patient was seen in conjunction with GUCCI Morgan. I have independently interviewed and examined the patient and reviewed pertinent history, examination findings, laboratory and plan of management. I have reviewed the note and agree with the documented findings with the few additional points. In brief, patient is admitted for acute encephalopathy and fall. Acute encephalopathy probably multiple etiologies, metabolic from rhabdomyolysis, e lectrolyte abnormality and infection. Yesterday, patient denied burning micturition but UA shows 3+ bacteria, LE positive nitrite negative. Empirically started on IV antibiotics ceftriaxone. Blood and urine culture shows gram- negative tammie, lactose stable attendant. Patient has leukocytosis, lactic acidosis 2.7, high CK and isolated troponin. EKG low voltage nondiagnostic. ID is consulted. 03/16: Acute kidney injury: IV fluid changed to bicarb drip at 150 mill per hour. Slight improvement in kidney function. Bonding Machine Operator consulted. Patient also has drop in hemoglobin, normocytic normochromic possible hemolytic anemia. Platelet count 39,000 dropped from 87,000. Leukocytosis improving. Hemolytic anemia work-up ordered. 03/17: Discussed with the nuclear supervising operator and risk assessment consultant. There was suspicion of HUS ruled out. I talked to the pathologist Dr. Connor Dillon. Peripheral blood smear reviewed and there are acanthocytes and spherocytes but not schistocytes. Patient has uremia, kidney dysfunction, altered mental status although much improved today, and diarrhea therefore suspicion for HUS. Inventory Associate Dr. Pickering is consulted and I talked to him. 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 Patient BUN and creatinine is improving. No clinical suspicion of HUS and therefore ruled out. It seems her peripheral blood smear is more consistent with splenectomy, immunocompromised state with spherocytes. She had normal platelet count in 2019. Very suspected bone marrow suppression from sepsis and possible from antibiotic, cephalosporin. Rocephin was discontinued started on Cipro. Anemia most likely from bone marrow suppression. No evidence for iron or B12 deficiency. LDH mildly elevated. Direct antiglobulin test negative. Patient advised to follow-up with Dr. Pickering after discharge. 03/18: Her daughter is concerned about altered mental status, TIA I offered her MRI brain but she might have contraindication she had upper palate rec onstruction with metal. She will get back to me after talking to her sibling regarding MRI. Even she has a stroke she will not be candidate for aspirin or statin because of thrombocytopenia and rhabdomyolysis. We agreed on CT head and EEG which are ordered. CT head did not show acute change with mucosal thickening right maxillary sinus. ID consult reviewed for bacteremia due to Klebsiella from complicated UTI. On Cipro. MARLINE improved. Advised incentive spirometry. Hypokalemia, potassium is getting replaced. 01/17: Patient is more awake and alert. Kidney function shows improvement. Ne phrology follow-up appreciated. Patient on modified diet. Platelet count improving, 49,000. Patient lost IV access and antibiotic Cipro changed from IV to oral. Discharge planning. I talked to the patient's daughter, power of tax associate attorney and talked to more than 15 minutes regarding different medical complications including anemia, kidney failure, bacteremia and altered mental status and explained the pathophysiology mechanism and management plan. Total time of the visit including total time spent in counseling or coordination of care, (more than 50% of the total time, spent in obtaining medical information from nurses and other ancillary care providers,explaining to the patient about labs, imaging, diagnosis and management), discussion with patient's daughter, POA, review of labs and imaging is 30 minutes. I have discussed my assessment with GUCCI Morgan and orders have been reviewed. According to her living will, patient is DNR CC arrest with no intubation Charges/Coding Visit Charges Inpatient E&M: 24517 Subs Hosp L2
--- NOTE | 2021-03-19 13:44 | PCM.PN.REN ---
Subjective Subjective Sitting up in chair, eating lunch. Daughter at bedside. No overnight events. Objective Data Objective Data Vital Signs: Vital Signs Temp Pulse Resp BP Pulse Ox 98.0 F 83 18 114/60 98 03/19/21 09:18 03/19/21 09:18 03/19/21 09:18 03/19/21 09:18 03/19/21 09:18 Oxygen Delivery Method Room Air Weight: 59.6 kg Body Mass Index (BMI) 22.6 Intake & Output: Intake and Output for Last 24 Hours 03/17/21 03/18/21 03/19/21 23:59 23:59 23:59 Intake Total 1836.67 / 1936.67 1518.33 / 1518.33 Output Total 650 / 1100 1450 / 1450 1025 / 1025 Balance 1186.67 / 836.67 68.33 / 68.33 -1025 / -1025 Lab / Micro Data Result Diagrams: 03/19/21 10:30 03/19/21 10:30 Labs: Laboratory Results - last 24 hr 03/18/21 05:26: Diff Path Review Reviewed 03/19/21 10:30: WBC 8.5, RBC 3.57 L, Hgb 9.2 L, Hct 30.4 L, MCV 85.2, MCH 25.8 L, MCHC 30.3 L, RDW Std Deviation 61.0 H, RDW Coeff of Tiburcio 19.5 H, Plt Count 49 L*, Immature Gran % (Auto) 0.900, Neut % (Auto) 83.0 H, Lymph % (Auto) 10.8 L, [place] % (Auto) 4.4, Eos % (Auto) 0.7, Baso % (Auto) 0.2, Absolute Neuts (auto) 7.0, Absolute Lymphs (auto) 0.91, Nucleated RBC % 2.2, Diff Path Review May foll, Platelet Estimate MOD DEC, Polychromasia 1+ 03/19/21 10:30: Sodium 144, Potassium 3.9, Chloride 116 H, Carbon Dioxide 21.0, Anion Gap 7, BUN 62 H, Creatinine 1.78 H, Estim Creat Clear Calc 19.95, Est GFR (MDRD) Af Amer 35 L, Est GFR (MDRD) Non-Af 29 L, BUN/Creatinine Ratio 34.8 H, Glucose 123 H, Calcium 8.8, Phosphorus 3.2, Magnesium 1.9, Total Bilirubin 0.70, AST 19, ALT 13, Alkaline Phosphatase 83, Total Protein 5.3 L, Albumin 1.7 L, Globulin 3.6, Albumin/Globulin Ratio 0.5 L Micro: Microbiology 03/15/21 12:00 Blood Culture (Wb) - Right Hand Blood Culture - Final GNR lactose product safety engineer 03/15/21 09:15 Blood Culture (Wb) - Left Hand Blood Culture - Final Klebsiella pneumoniae sp pneum 03/15/21 10:00 Urine, Catheterized Urine Culture - Final Klebsiella pneumoniae sp pneum 03/15/21 09:21 Nasal Secretion SARS-CoV-2 Antigen (Rapid) - Final Physical Exam Narrative Alert awake, [place] no obvious distress s1s2 no murmurs lungs clear abdomen soft no pitting LE edema taylor with clear urine in bag Assessment & Plan Assessment/Plan (1) Acute kidney injury: PLAN: Nonoliguric, hypovolemic MARLINE. Baseline Creatinine ~1mg/dL. Likely related to volume depletion, rhabdomyolysis. CPK 3390 on admission and improved to 1173. Klebsiella UTI. Klebsiella bacteremia. CT abdomen without any hydronephrosis. Creatinine 4 mg/dL, BUN 105 on admission and both have been improving daily, today creatinine 1.78 mg/dL, BUN 62. Electrolytes are acceptable. No acute indications for dialysis. BP acceptable, not on any antihypertensives Patient is on pur?ed diet with nectar thick liquids. Will add protein supplement as appetite poor with current diet Off IVF (lost IV access today). Questions answered for patient's daughter. Patient was noted to have significant decline in platelet count. seen by hematology. unlikely TTP. Platelets 49 today. mental status fluctuating (2) Rhabdomyolysis: QUALIFIERS: Rhabdomyolysis type: non-traumatic Qualified Code(s): M62.82 - Rhabdomyolysis PLAN: Likely related to prolonged immobilization. CPK levels improved
--- NOTE | 2021-03-19 13:51 | CASEMGMT ---
SCOTT spoke with patient's daughter Cris in the hallway. SCOTT let her know [facility] submitted everything to insurance to get the okay to send patient to [facility] for skilled care. SCOTT let Cris know we are waiting on that and for patient to be medically ready. She thanked SCOTT for the update. Plan: d/c to [facility] pending insurance authorization and patient being medically ready. Kelli Gonzalez CLINICAL RESEARCH ASSISTANT JUANA
--- NOTE | 2021-03-19 15:21 | CASEMGMT ---
SW spoke with Bernadine at [facility] and she has not heard from insurance yet. Kelli Gonzalez MACHINIST SET UP EDUCATIONAL GUIDANCE COUNSELOR
[2021-03-19] MEDS: Ensure Clear 120 ML Liquid PO (16:59)
[2021-03-19] MEDS: Atorvastatin Calcium 20 MG Tablet PO (22:40)
[2021-03-20] VITALS (9 sets, daily range): BP systolic 110–119; BP diastolic 55–60; PULSE 77–89; RESP 13–18; TEMP 36.6–37.1; O2SAT 95–97
[2021-03-20 07:59] LABS: Absolute Neutrophil Count 6.9 X10^3/uL (2.0-7.7); Basophil# 0.01 X10^3/uL; Basophil% 0.1 % (0-1); Eosinophils% 1.1 % (0-5); Hematocrit 30.7 % (37-47); Hemoglobin 9.5 g/dL (12.0-15.0); Lymphocyte % 16.7 % (19-41); Mean Corp Hgb Conc 30.9 g/dL (32-36); Mean Corpuscular Hgb 26.2 pg (27.0-32.0); Mean Corpuscular Volume 84.8 fL (81-99); Mean Platelet Vol. 12.8 fl (6.2-12.0); Monocyte# 0.29 X10^3/uL; Monocyte% 3.2 % (0-10); NRBC Flagged by Analyzer 1.4 % (0-5); Neutrophil # 6.92 X10^3/uL (2.7-7.7); Neutrophil % 77.1 % (47-70); POSITIVE COUNT YES; Platelet Count 85 K/mm3 (150-450); RBC Distribution Width SD 59.3 fl (35.1-43.9); Red Blood Count 3.62 M/mm3 (4.2-5.4)
[2021-03-20] MEDS: Acetaminophen 325 MG Tablet 650 MG PO (08:22)
[2021-03-20] MEDS: CARBIDOPA/LEVODOPA CR 50/200 Tablet PO ×3 (08:22→15:43)
[2021-03-20] MEDS: Pantoprazole Sodium 40 MG Tablet PO (08:22)
[2021-03-20 08:32] LABS: Anion Gap 6 (5-15); BUN 56 mg/dL (7-18); BUN/Creat Ratio 38.6 RATIO (10-20); Calcium,Total 8.8 mg/dL (8.5-10.1); Chloride 116 mmol/L (98-107); Creatinine, Serum 1.45 mg/dL (0.55-1.02); EST Glomerular Filtration Rate 37 mL/min (>60); Est Glom Filt Rate - Afr Amer 44 mL/min (>60); Estimated Creatinine Clearance 24.49 ml/min; Glucose 78 mg/dL (74-106); Potassium 4.5 mmol/L (3.5-5.1); Sodium Level 144 mmol/L (136-145)
[2021-03-20] MEDS: Ciprofloxacin 500 MG Tablet PO (08:35)
[2021-03-20] MEDS: Ensure Clear 120 ML Liquid PO ×2 (10:06→15:43)
--- NOTE | 2021-03-20 10:38 | PN.HOSP_ITS ---
Documented by User: FORTINO Dinh 03/20/21 10:44 Subjective Subjective Patient seen and examined. Patient is alert and oriented this morning. Patient able to answer written questions. Patient will be discharged to [facility], awaiting pre-CERT from insurance. Patient denies any needs at this time Objective Data Objective Data Vital Signs: Vital Signs Temp Pulse Resp BP Pulse Ox 98.3 F 84 16 119/55 L 97 03/20/21 08:33 03/20/21 08:33 03/20/21 08:33 03/20/21 08:33 03/20/21 08:33 Oxygen Delivery Method Room Air Weight: 131 lb 6.328 oz Body Mass Index (BMI) 22.6 Intake & Output: Intake and Output for Last 24 Hours 03/18/21 03/19/21 03/20/21 23:59 23:59 23:59 Intake Total 1518.33 / 1518.33 200 / 200 Output Total 1450 / 1450 1325 / 1325 Balance 68.33 / 68.33 -1125 / -1125 Lab / Micro Data Result Diagrams: 03/20/21 06:57 03/20/21 06:57 Labs: Laboratory Results - last 24 hr 03/19/21 10:30: WBC 8.5, RBC 3.57 L, Hgb 9.2 L, Hct 30.4 L, MCV 85.2, MCH 25.8 L , MCHC 30.3 L, RDW Std Deviation 61.0 H, RDW Coeff of Tiburcio 19.5 H, Plt Count 49 L*, Immature Gran % (Auto) 0.900, Neut % (Auto) 83.0 H, Lymph % (Auto) 10.8 L, [place] % (Auto) 4.4, Eos % (Auto) 0.7, Baso % (Auto) 0.2, Absolute Neuts (auto) 7.0, Absolute Lymphs (auto) 0.91, Nucleated RBC % 2.2, Diff Path Review September foll, Platelet Estimate MOD DEC, Polychromasia 1+ 03/19/21 10:30: Sodium 144, Potassium 3.9, Chloride 116 H, Carbon Dioxide 21.0, Anion Gap 7, BUN 62 H, Creatinine 1.78 H, Estim Creat Clear Calc 19.95, Est GFR (MDRD) Af Amer 35 L, Est GFR (MDRD) Non-Af 29 L, BUN/Creatinine Ratio 34.8 H, Glucose 123 H, Calcium 8.8, Phosphorus 3.2, Magnesium 1.9, Total Bilirubin 0.70, AST 19, ALT 13, Alkaline Phosphatase 83, Total Protein 5.3 L, Albumin 1.7 L, Globulin 3.6, Albumin/Globulin Ratio 0.5 L 03/20/21 06:57: WBC 9.0, RBC 3.62 L, Hgb 9.5 L, Hct 30.7 L, MCV 84.8, MCH 26.2 L , MCHC 30.9 L, RDW Std Deviation 59.3 H, RDW Coeff of Tiburcio 19.0 H, Plt Count 85 L , MPV 12.8 H, Immature Gran % (Auto) 1.800 H, Neut % (Auto) 77.1 H, Lymph % (Auto) 16.7 L, [place] % (Auto) 3.2, Eos % (Auto) 1.1, Baso % (Auto) 0.1, Absolute Neuts (auto) 6.9, Absolute Lymphs (auto) 1.50, Nucleated RBC % 1.4 03/20/21 06:57: Sodium 144, Potassium 4.5, Chloride 116 H, Carbon Dioxide 22.0, Anion Gap 6, BUN 56 H, Creatinine 1.45 H, Estim Creat Clear Calc 24.49, Est GFR (MDRD) Af Amer 44 L, Est GFR (MDRD) Non-Af 37 L, BUN/Creatinine Ratio 38.6 H, Glucose 78, Calcium 8.8 Micro: Microbiology 03/15/21 12:00 Blood Culture (Wb) - Right Hand Blood Culture - Final GNR lactose manager inventory management 03/15/21 09:15 Blood Culture (Wb) - Left Hand Blood Culture - Final Klebsiella pneumoniae sp pneum 03/15/21 10:00 Urine, Catheterized Urine Culture - Final Klebsiella pneumoniae sp pneum 03/15/21 09:21 Nasal Secretion SARS-CoV-2 Antigen (Rapid) - Final Physical Exam Const alert, oriented x3 and no apparent distress General Appearance: cooperative HEENT normocephalic and head/scalp atraumatic Head and Scalp: normocephalic Eyes conjunctivae normal and no scleral icterus Neck full ROM and supple Resp normal respiratory effort, normal air movement and clear to auscultation bilaterally Effort and Inspection: able to speak in complete sentences and symmetric chest movement Cardio regular rate, regular rhythm, S1 normal heart sound, S2 normal heart sound and peripheral pulses 2+ throughout GI normal to inspection, nondistended, normoactive bowel sounds, soft to palpation and non-tender Extremity normal to inspection, full ROM and no clubbing, cyanosis or edema Skin no rashes or lesions noted, no wounds and skin turgor normal Neuro moves all extremities, no focal motor deficits and no sensory deficits noted Sensorium / Orientation: alert Psych cooperative and affect normal Speech: minimal and slurred Assessment & Plan Assessment/Plan (1) Bacteremia due to Gram-negative bacteria: (2) Thrombocytopenia: (3) Acute UTI: PLAN: 1. Sepsis secondary to acute cystitis -Vital signs stable, patient afebrile -Urine culture positive for Klebsiella -Patient transition to p.o. Cipro yesterday due to loss of IV -ID consulted -CBC daily 2. Acute encephalopathy -Resolved 3. Rhabdomyolysis -Nephrology following -Continue IV fluids 4. Elevated troponin -EKG normal sinus rhythm -Continue cardiac monitoring 5. MARLINE -Creatinine continues to improve -Daily BMP ordered -Nephrology following 6. Thrombocytopenia -Dr. Pickering following -Platelets significantly improved from yesterday up to 85,000 today Discharge planning-plan for patient to go to [facility] upon discharge, awaiting pre-CERT from insurance company. DVT prophylaxis-SCDs This patient was seen by KALEY DinhC under the supervision of Dr. Hughes. Documented by User: Dr. Kyle Hughes MD 03/20/21 14:31 Objective Data Lab / Micro Data Result Diagrams: 03/20/21 06:57 03/20/21 06:57 Physical Exam Narrative Seen and examined. General: Awake and alert and oriented x3. Participated no conversation HEENT: Atraumatic, PERRLA, EOMI, Normocephalic Oral: Oral mucosa moist. Patient had upper palate surgery and facial reconstruction. Mild upper lip bruise since admission, healing Neck: Supple, No JVD, Negative Carotid Bruits Lungs: Air entry diminished in bilateral lung bases. No crepitation/rhonchi Cardiovascular: Regular rate, Regular Rhythm, Normal S1, Normal S2, No murmurs Abdomen: On modified dysphagia diet. Bowel Sounds Present, Soft, Non Tender, Non-Distended : No renal angle tenderness. No suprapubic tenderness. Extremities: No edema, Capillary Refill Less than 3 Seconds Skin: Bruise over right lower leg, healing. Patient has surgical scar over rig ht thigh and right leg for skin graft. Musculoskeletal: Mild weakness mild weakness of both lower extremity, right more than left. No Tenderness to Palpation of Joints or Extremities Neurological: Cranial nerves II-XII grossly intact, no obvious lateralization sign. Psych/Mental Status: Flat affect Assessment & Plan Assessment/Plan (1) Bacteremia due to Gram-negative bacteria: PLAN: This patient was seen in conjunction with GUCCI Morgan. I have independently interviewed and examined the patient and reviewed pertinent history, examination findings, laboratory and plan of management. I have revi ewed the note and agree with the documented findings with the few additional points. In brief, patient is admitted for acute encephalopathy and fall. Acute encephalopathy probably multiple etiologies, metabolic from rhabdomyolysis, electrolyte abnormality and infection. Yesterday, patient denied burning micturition but UA shows 3+ bacteria, LE positive nitrite negative. Empirically started on IV antibiotics ceftriaxone. Blood and urine culture shows gram- negative tammie, lactose manager inventory management. Patient has leukocytosis, lactic acidosis 2.7, high CK and isolated troponin. EKG low voltage nondiagnostic. ID is consulted. 03/16: Acute kidney injury: IV fluid changed to bicarb drip at 150 mill per hour. Slight improvement in kidney function. Cement Finisher Helper consulted. Patient also has drop in hemoglobin, normocytic normochromic possible hemolytic anemia. Platelet count 39,000 dropped from 87,000. Leukocytosis improving. Hemolytic anemia work-up ordered. 03/17: Discussed with the transportation logistics internship and direct care professional. There was suspicion of HUS ruled out. I talked to the pathologist Dr. Connor Dillon. Peripheral blood smear reviewed and there are acanthocytes and spherocytes but not schistocytes. Patient has uremia, kidney dysfunction, altered mental status although much improved today, and diarrhea therefore suspicion for HUS. User Experience Analyst Dr. Pickering is consulted and I talked to him. 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 Patient BUN and creatinine is improving. No clinical suspicion of HUS and therefore ruled out. It seems her peripheral blood smear is more consistent with splenectomy, immunocompromised state with spherocytes. She had normal platelet count in 2019. Very suspected bone marrow suppression from sepsis and possible from antibiotic, cephalosporin. Rocephin was discontinued started on Cipro. Anemia most likely from bone marrow suppression. No evidence for iron or B12 deficiency. LDH mildly elevated. Direct antiglobulin test negative. Patient advised to follow-up with Dr. Pickering after discharge. 03/18: Her daughter is concerned about altered mental status, TIA I offered her MRI brain but she might have contraindication she had upper palate reconstruction with metal. She will get back to me after talking to her sibling regarding MRI. Even she has a stroke she will not be candidate for aspirin or statin because of thrombocytopenia and rhabdomyolysis. We agreed on CT head and EEG which are ordered. CT head did not show acute change with mucosal thickening right maxillary sinus. ID consult reviewed for bacteremia due to Klebsiella from complicated UTI. On Cipro. MARLINE improved. Advised incentive spirometry. Hypokalemia, potassium is getting replaced. 03/19: Patient is more awake and alert. Kidney function shows improvement. Nephrology follow-up appreciated. Patient on modified diet. Platelet count improving, 49,000. Patient lost IV access and antibiotic Cipro changed from IV to oral. Discharge planning. 03/20: Hemoglobin 9.5 g%. Platelet count 85,000. BUN/creatinine 56/1.45. Imp roving trend of labs discussed with the patient's daughter near the bedside. Patient is ready for discharge but has to stay until Monday for discharge to SNF. I talked to the patient's daughter, power of united states attorney and talked to more than 15 minutes regarding different medical complications including anemia, kidney failure, bacteremia and altered mental status and explained the pathophysiology mechanism and management plan. Total time of the visit including total time spent in counseling or coordination of care, (more than 50% of the total time, spent in obtaining medical information from nurses and other ancillary care providers,explaining to the patient about labs, imaging, diagnosis and management), discussion with patient's daughter, POA, review of labs and imaging is 30 minutes. I have discussed my assessment with Cathy, GUCCI and orders have been reviewed. According to her living will, patient is DNR CC arrest with no intubation Charges/Coding Visit Charges Inpatient E&M: 30825 Subs Hosp L2
--- NOTE | 2021-03-20 11:20 | CASEMGMT ---
SOCIAL WORK Call to [facility], nursing reports doesn't know about precert. Will need to follow up Monday. Pretty Villatoro, CHEMISTRY QUALITY CONTROL TECHNICIAN, VERIFICATION MANAGER
--- NOTE | 2021-03-20 12:47 | NURSING ---
Therapy services reports patient's daughter was taking video of treatment. Spoke to daughter regarding video. Instructed to not take video without permission. Daughter very apologetic stating she was only trying to use the video to updater her siblings and attempted to keep staff's faces out of the video.
[2021-03-20] MEDS: Ferrous Sulfate 325 MG Tablet PO (15:43)
[2021-03-20] MEDS: Atorvastatin Calcium 20 MG Tablet PO (21:04)
[2021-03-21] VITALS (8 sets, daily range): BP systolic 104–127; BP diastolic 56–64; PULSE 76–91; RESP 18; TEMP 36.6–36.7; O2SAT 95–99
[2021-03-21] MEDS: Ciprofloxacin 500 MG Tablet PO ×2 (04:20→21:59)
[2021-03-21] MEDS: CARBIDOPA/LEVODOPA CR 50/200 Tablet PO ×3 (06:36→15:11)
[2021-03-21 07:38] LABS: Absolute Lymphocyte Count 1.62 X10^3/uL (0.83-4.51); Absolute Neutrophil Count 6.7 X10^3/uL (2.0-7.7); Basophil# 0.02 X10^3/uL; Basophil% 0.2 % (0-1); Eosinophil# 0.09 X10^3/uL; Hematocrit 31.2 % (37-47); Hemoglobin 8.8 g/dL (12.0-15.0); Lymphocyte # 1.62 X10^3/ul (0.83-4.51); Mean Corp Hgb Conc 28.2 g/dL (32-36); Mean Corpuscular Hgb 25.7 pg (27.0-32.0); Mean Corpuscular Volume 91.2 fL (81-99); Mean Platelet Vol. 11.6 fl (6.2-12.0); Monocyte# 0.47 X10^3/uL; Monocyte% 5.2 % (0-10); NRBC Flagged by Analyzer 0.9 % (0-5); Neutrophil # 6.66 X10^3/uL (2.7-7.7); Neutrophil % 74.3 % (47-70); Platelet Count 132 K/mm3 (150-450); RBC Distribution Width SD 63.9 fl (35.1-43.9); Red Blood Count 3.42 M/mm3 (4.2-5.4)
[2021-03-21] MEDS: Acetaminophen 325 MG Tablet 650 MG PO (07:40)
[2021-03-21] MEDS: Pantoprazole Sodium 40 MG Tablet PO (07:42)
[2021-03-21 08:11] LABS: Anion Gap 6 (5-15); BUN 45 mg/dL (7-18); BUN/Creat Ratio 35.7 RATIO (10-20); Calcium,Total 8.7 mg/dL (8.5-10.1); Chloride 117 mmol/L (98-107); Creatinine, Serum 1.26 mg/dL (0.55-1.02); EST Glomerular Filtration Rate 43 mL/min (>60); Est Glom Filt Rate - Afr Amer 52 mL/min (>60); Estimated Creatinine Clearance 28.19 ml/min; Glucose 76 mg/dL (74-106); Potassium 4.5 mmol/L (3.5-5.1); Sodium Level 142 mmol/L (136-145)
--- NOTE | 2021-03-21 11:45 | PCM.PN.HOSP ---
Documented by User: Cathy Ashley NP-[place] 03/21/21 11:49 Subjective Subjective Patient seen and examined. Patient sitting in chair eating breakfast no distress noted. Patient is awaiting approval to go to [facility]. Objective Data Objective Data Vital Signs: Vital Signs Temp Pulse Resp BP Pulse Ox 97.9 F 83 18 123/64 H 99 03/21/21 07:48 03/21/21 07:48 03/21/21 07:48 03/21/21 07:48 03/21/21 07:48 Oxygen Delivery Method Room Air Weight: 131 lb 6.328 oz Body Mass Index (BMI) 22.6 Intake & Output: Intake and Output for Last 24 Hours 03/19/21 03/20/21 03/21/21 23:59 23:59 22:59 Intake Total 200 / 200 1100 / 1100 Output Total 1325 / 1325 Balance -1125 / -1125 1100 / 1100 Lab / Micro Data Result Diagrams: 03/21/21 06:30 03/21/21 06:30 Labs: Laboratory Results - last 24 hr 03/21/21 06:30: WBC 9.0, RBC 3.42 L, Hgb 8.8 L, Hct 31.2 L, MCV 91.2 D, MCH 25.7 L, MCHC 28.2 L D, RDW Std Deviation 63.9 H, RDW Coeff of Tiburcio 19.0 H, Plt Count 132 L, MPV 11.6, Immature Gran % (Auto) 1.300 H, Neut % (Auto) 74.3 H, Lymph % (Auto) 18.0 L, [place] % (Auto) 5.2, Eos % (Auto) 1.0, Baso % (Auto) 0.2, Absolute Neuts (auto) 6.7, Absolute Lymphs (auto) 1.62, Nucleated RBC % 0.9 03/21/21 06:30: Sodium 142, Potassium 4.5, Chloride 117 H, Carbon Dioxide 19.0 L, Anion Gap 6, BUN 45 H, Creatinine 1.26 H, Estim Creat Clear Calc 28.19, Est GFR (MDRD) Af Amer 52 L, Est GFR (MDRD) Non-Af 43 L, BUN/Creatinine Ratio 35.7 H, Glucose 76, Calcium 8.7 Micro: Microbiology 03/15/21 12:00 Blood Culture (Wb) - Right Hand Blood Culture - Final GNR lactose land law examiner 03/15/21 09:15 Blood Culture (Wb) - Left Hand Blood Culture - Final Klebsiella pneumoniae sp pneum 03/15/21 10:00 Urine, Catheterized Urine Culture - Final Klebsiella pneumoniae sp pneum 03/15/21 09:21 Nasal Secretion SARS-CoV-2 Antigen (Rapid) - Final Physical Exam Const alert, oriented x3 and no apparent distress General Appearance: cooperative Orientation / Consciousness: oriented to person and oriented to place HEENT normocephalic and head/scalp atraumatic Eyes conjunctivae normal and no scleral icterus Neck full ROM and supple Resp normal respiratory effort, normal air movement and clear to auscultation bilaterally Effort and Inspection: able to speak in complete sentences and symmetric chest movement Cardio regular rate, regular rhythm, S1 normal heart sound, S2 normal heart sound and peripheral pulses 2+ throughout GI normal to inspection, nondistended, normoactive bowel sounds, soft to palpation and non-tender Extremity normal to inspection, full ROM and no clubbing, cyanosis or edema Skin no rashes or lesions noted, no wounds and skin turgor normal Neuro moves all extremities, no focal motor deficits and no sensory deficits noted Sensorium / Orientation: alert Psych cooperative and affect normal Speech: minimal and slurred Assessment & Plan Assessment/Plan (1) Bacteremia due to Gram-negative bacteria: (2) Thrombocytopenia: PLAN: 1. Sepsis secondary to acute cystitis -Vital signs stable, patient afebrile -Urine culture positive for Klebsiella, continue Cipro -ID following -CBC daily 2. Acute encephalopathy -Resolved 3. Rhabdomyolysis -Nephrology following 4. Elevated troponin -EKG normal sinus rhythm -Continue cardiac monitoring 5. MARLINE -Creatinine continues to improve -Daily BMP ordered -Nephrology following 6. Thrombocytopenia -Dr. Pickering following -Platelets significantly improved from yesterday up to 132,000 today Discharge planning-plan for patient to go to [facility] upon discharge, awaiting pre-CERT from insurance company. DVT prophylaxis-SCDs This patient was seen by Cathy Ashley NP-C under the supervision of Dr. Hughes. Documented by User: Dr. Kyle Hughes MD 03/21/21 14:36 Subjective Subjective Patient seems to be on baseline. No fever or chills. Heart rate and blood pressure controlled. Objective Data Lab / Micro Data Result Diagrams: 03/21/21 06:30 03/21/21 06:30 Physical Exam Narrative General: Awake and alert and oriented x3. Participated no conversation HEENT: Atraumatic, PERRLA, EOMI, Normocephalic Oral: Oral mucosa moist. Patient had upper palate surgery and facial reconstruction. Correction: Mild lower lip bruise since admission, healing Neck: Supple, No JVD, Negative Carotid Bruits Lungs: Air entry diminished in bilateral lung bases. No crepitation/rhonchi Cardiovascular: Regular rate, Regular Rhythm, Normal S1, Normal S2, No murmurs Abdomen: On modified dysphagia diet. Bowel Sounds Present, Soft, Non Tender, Non-Distended : No renal angle tenderness. No suprapubic tenderness. Extremities: No edema, Capillary Refill Less than 3 Seconds Skin: Bruise over right lower leg, healing. Patient has surgical scar over right thigh and right leg for skin graft. Musculoskeletal: Mild weakness mild weakness of both lower extremity, right more than left. No Tenderness to Palpation of Joints or Extremities Neurological: Cranial nerves II-XII grossly intact, no obvious lateralization sign. Psych/Mental Status: Flat affect Assessment & Plan Assessment/Plan (1) Bacteremia due to Gram-negative bacteria: PLAN: This patient was seen in conjunction with GUCCI Morgan. I have independently interviewed and examined the patient and reviewed pertinent history, examination findings, laboratory and plan of management. I have reviewed the note and agree with the documented findings with the few additional points. In brief, patient is admitted for acute encephalopathy and fall. Acute encephalopathy probably multiple etiologies, metabolic from rhabdomyolysis, electrolyte abnormality and infection. Yesterday, patient denied burning micturition but UA shows 3+ bacteria, LE positive nitrite negative. Empirically started on IV antibiotics ceftriaxone. Blood and urine culture shows gram-negative tammie, lactose land law examiner. Patient has leukocytosis, lactic acidosis 2.7, high CK and isolated troponin. EKG low voltage nondiagnostic. ID is consulted. Acute kidney injury: IV fluid changed to bicarb drip at 150 mill per hour. Digital Measurement Advisor consulted. Kidney function improved Discussed with the rust proofer. There was suspicion of HUS ruled out.Client Account Specialist Dr. Pickering is consulted and I talked to him. 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 Patient BUN and creatinine is improving. No clinical suspicion of HUS and therefore ruled out. It seems her peripheral blood smear is more consistent with splenectomy, immunocompromised state with spherocytes. She had normal platelet count in 2019. Very suspected bone marrow suppression from sepsis and possible from antibiotic, cephalosporin. Rocephin was discontinued started on Cipro. Anemia most likely from bone marrow suppression. No evidence for iron or B12 deficiency. LDH mildly elevated. Direct antiglobulin test negative. Patient advised to follow-up with Dr. Pickering after discharge.. Altered mental status, TIA I offered her MRI brain but she might have contraindication she had upper palate reconstruction with metal. In the meantime her mental status improved.CT head did not show acute change with mucosal thickening right maxillary sinus. ID consult reviewed for bacteremia due to Klebsiella from complicated UTI. On Cipro. EEG did not show any epileptiform discharges and reported unremarkable. MARLINE improved. Advised incentive spirometry. Hypokalemia improved Total time of the visit including total time spent in counseling or coordination of care, (more than 50% of the total time, spent in obtaining medical information from nurses and other ancillary care providers,explaining to the patient about labs, imaging, diagnosis and management), discussion with patient's daughter, TAMRA, review of labs and imaging is 30 minutes. I have discussed my assessment with GUCCI Morgan and orders have been reviewed. According to her living will, patient is DNR CC arrest with no intubation Charges/Coding Visit Charges Inpatient E&M: 63885 Subs Hosp L2
[2021-03-21] MEDS: Atorvastatin Calcium 20 MG Tablet PO (22:00)
[2021-03-22] VITALS (7 sets, daily range): BP systolic 107–110; BP diastolic 52–56; PULSE 80–92; RESP 18; TEMP 36.8–37.2; O2SAT 95
[2021-03-22] MEDS: CARBIDOPA/LEVODOPA CR 50/200 Tablet PO ×2 (06:59→09:52)
--- NOTE | 2021-03-22 09:25 | TREXTCAR_ITS ---
Documented by User: Cathy Ashley NP-C 03/22/21 09:40 Diet 03/17/21 10:41 Diet: Regular - General Food consistency:: Pureed Liquid Consistency:: [place]/Mildly Thick Type of Dietary Supplement:: EP or MC w/ meals Is pt able to select menu?: No Diet Comments: total feed, small sips of liquids, only when alert Routine Orders/Code Status Enema Type: Fleetz Enema Frequency: Daily PRN Suppository Type: Dulcolax 10mg Suppository Frequency: Daily PRN Code Status: DNRCC-A Suggestions for Active Care Change Position every (hours): 2 Hours to sit in a chair: 3 Times a day to sit in chair: 2 Therapies Physical Therapy: Eval and Treat Occupational Therapy: Eval and Treat Speech Therapy: Eval and Treat Problem/Diagnosis (1) Bacteremia due to Gram-negative bacteria: Status: Acute Allergies/Procedures Done in Hospital Allergies Penicillins Allergy (Unknown, Verified 03/15/21 08:38) Unknown Procedures: EKG Type of Care/Length of Stay Estimated LOS: Convalescent Care Less Than 30 days Type of Care Needed: Skilled Rehab Potential: Good Prognosis: Good Additional Orders/Day of Discharge Day of Discharge: 03/22/21 Dietary and Speech Recommendations Dietitian Recommendations/Changes: Rec continue liberal Regular diet - consistency per SUPERVISOR PIPELINES Will give ensure pudding or magic cup w/ meals for increased nutrition if consumed Follow Up Care Please follow up with your Primary Care Physician in: upon discharge from SNF Discharge Plan Admission Admit Date/Time: 03/15/21 11:27 Primary Reason for Your Visit: Encephalopathy, Bacteremia Attending Provider: Kyle Hughes Primary Care Provider: Mary Krueger Consulting Providers: Dakota Kaminski ; Jose D Rose ; Ciaran Killian ; Ray Pryor ; Aletha Pickering ; Dakota Rivera ; William Kerr ; Kael Meredith ; Moncho Sanz ; Sherie Schwartz COMMERCIAL HVAC TECHNICIAN Discharge Orders/Prescriptions Prescriptions: New ciprofloxacin HCl 500 mg Tablet 500 mg PO Q18H Qty: 1 RF: 0 ferrous sulfate [FeroSul] 325 mg (65 mg iron) Tablet 325 mg PO QODAY@0800 Qty: 0 RF: 0 Ensure Compact Liquid 118 ml PO TIDCM Qty: 0 RF: 0 Continued pantoprazole 40 mg tablet,delayed release (DR/EC) 40 mg PO DAILY RF: 0 citalopram 10 mg tablet 10 mg PO DAILY RF: 0 carbidopa-levodopa 50-200 mg tablet extended release 1 tab PO TID RF: 0 cyanocobalamin (vitamin B-12) 1,000 mcg Capsule 1,000 mcg PO DAILY RF: 0 atorvastatin 20 mg tablet 20 mg PO DAILY Qty: 90 RF: 3 amlodipine 10 mg tablet 10 mg PO DAILY Qty: 90 RF: 3 Referrals / Follow Up: Mary Krueger DO [Primary Care Provider] - Within 2 Weeks Chaparrita Maher MD [STAFF PHYSICIAN] - Within 2 Weeks Aletha Pickering MD [STAFF PHYSICIAN] - 04/20/22 2:30 pm Disposition Disposition (needs filled in before D/C Order can be placed): [facility] Facility Documented by User: Dr. Kyle Hughes MD 03/22/21 10:10 Allergies/Procedures Done in Hospital Allergies Penicillins Allergy (Unknown, Verified 03/15/21 08:38) Unknown Discharge Plan Admission Admit Date/Time: 03/15/21 11:27 Primary Reason for Your Visit: Encephalopathy, Bacteremia Attending Provider: Kyle Hughes Primary Care Provider: Mary Krueger Consulting Providers: Dakota Kaminski ; Jose D Rose ; Ciaran Killian ; Ray Pryor ; Aletha Pickering ; Dakota Rivera ; William Kerr ; Kael Meredith ; Moncho Sanz ; Sherie Schwartz COMMERCIAL HVAC TECHNICIAN Discharge Orders/Prescriptions Prescriptions: New ciprofloxacin HCl 500 mg Tablet 500 mg PO Q18H Qty: 1 RF: 0 ferrous sulfate [FeroSul] 325 mg (65 mg iron) Tablet 325 mg PO QODAY@0800 Qty: 0 RF: 0 Ensure Compact Liquid 118 ml PO TIDCM Qty: 0 RF: 0 Continued pantoprazole 40 mg tablet,delayed release (DR/EC) 40 mg PO DAILY RF: 0 citalopram 10 mg tablet 10 mg PO DAILY RF: 0 carbidopa-levodopa 50-200 mg tablet extended release 1 tab PO TID RF: 0 cyanocobalamin (vitamin B-12) 1,000 mcg Capsule 1,000 mcg PO DAILY RF: 0 atorvastatin 20 mg tablet 20 mg PO DAILY Qty: 90 RF: 3 amlodipine 10 mg tablet 10 mg PO DAILY Qty: 90 RF: 3 Referrals / Follow Up: Mary Krueger DO [Primary Care Provider] - Within 2 Weeks Chaparrita Maher MD [STAFF PHYSICIAN] - Within 2 Weeks Aletha Pickering MD [STAFF PHYSICIAN] - 04/20/22 2:30 pm Disposition Disposition (needs filled in before D/C Order can be placed): [facility] Facility
--- NOTE | 2021-03-22 09:36 | PCM.PN.REN ---
Subjective Subjective Patient is very hard hearing. communicated by writing Denied new complaints Objective Data Objective Data Vital Signs: Vital Signs Temp Pulse Resp BP Pulse Ox 98.9 F 87 18 107/52 L 95 03/22/21 08:23 03/22/21 08:23 03/22/21 08:23 03/22/21 08:23 03/22/21 08:23 Oxygen Delivery Method Room Air Weight: 59.6 kg Body Mass Index (BMI) 22.6 Intake & Output: Intake and Output for Last 24 Hours 03/21/21 03/21/21 03/22/21 00:59 23:59 23:59 Intake Total Output Total Balance - Lab / Micro Data Result Diagrams: 03/21/21 06:30 03/21/21 06:30 Micro: Microbiology 03/15/21 12:00 Blood Culture (Wb) - Right Hand Blood Culture - Final GNR lactose pharmacovigilance safety expert 03/15/21 09:15 Blood Culture (Wb) - Left Hand Blood Culture - Final Klebsiella pneumoniae sp pneum 03/15/21 10:00 Urine, Catheterized Urine Culture - Final Klebsiella pneumoniae sp pneum 03/15/21 09:21 Nasal Secretion SARS-CoV-2 Antigen (Rapid) - Final Physical Exam Narrative Alert awake no obvious distress s1s2 no murmurs lungs clear abdomen soft no pitting LE edema Assessment & Plan Assessment/Plan (1) Acute kidney injury: PLAN: Nonoliguric, hypovolemic MARLINE. Baseline Creatinine ~1mg/dL. Likely related to volume depletion, SCr peaked at 4. mg/dl and improve to 1.2 mg/dl as per yesterday lab with IVF Currently off IVF No need for RAILWAY SWITCH OPERATOR Check RFP in am
--- NOTE | 2021-03-22 09:40 | DS.PCM_ITS ---
Documented by User: FORTINO Dinh 03/22/21 09:45 Providers Date of Admission: 03/15/21 Primary Care Physician: Dr. Mary Krueger DO Consultations 03/16/21 12:46 Consult: Infectious Disease Routine Consulting Provider: Dakota Kaminski Reason for Consult: Bactremia + UTI; GNR Lactose Shot Peen Operator. EMERGENT Consult: No MD Notified: Yes Date Notified: 03/16/21 Time Notified: 12:53 Method of Notification: Text 03/16/21 13:54 Consult: Nephrology Routine Consulting Provider: Jose D Rose Reason for Consult: Rhadomyolysisi EMERGENT Consult: No MD Notified: Yes Date Notified: 03/16/21 Time Notified: 13:54 Method of Notification: Answering Service 03/17/21 12:58 Consult: Oncology/Hematology Routine Consulting Provider: [facility] Reason for Consult: To R/O HUS or hemolytic anemia EMERGENT Consult: No MD Notified: Yes Date Notified: 03/17/21 Time Notified: 12:58 Method of Notification: Verbal Reason For Visit: AMS RHABDOMYOLYSIS Diagnosis Discharge Diagnosis (1) Bacteremia due to Gram-negative bacteria: Status: Acute Code(s): R78.81 - Bacteremia (2) Acute kidney injury: Status: Acute Code(s): N17.9 - Acute kidney failure, unspecified Medications at Discharge Home Medications pantoprazole 40 mg tablet,delayed release 40 mg PO DAILY 01/26/18 carbidopa ER 50 mg-levodopa 200 mg tablet,extended release 1 tab PO TID 03/08/19 citalopram 10 mg tablet 10 mg PO DAILY 03/08/19 atorvastatin 20 mg tablet 20 mg PO DAILY #90 tab 03/25/20 amlodipine 10 mg tablet 10 mg PO DAILY #90 tab 03/12/21 cyanocobalamin (vitamin B-12) 1,000 mcg PO DAILY 03/15/21 ciprofloxacin HCl 500 mg PO Q18H #1 tab 03/22/21 ferrous sulfate [FeroSul] 325 mg PO QODAY@0800 #0 tab 03/22/21 food supplemt, lactose-reduced [Ensure Compact] 118 ml PO TIDCM #0 ml 03/22/21 Hospital Course Procedures EKG Summary of Care Provided Minutes Spent on Discharge: 35 Hospital Course: Patient is a 86-year-old female who was admitted on 03/15/2021 for complaints of altered mental status, frequent falls. Patient was found to have a urinary tract infection as well as rhabdomyolysis. Patient underwent a 8-day course of ciprofloxacin for her urinary tract infection which has resolved. Patient is now alert and oriented and able to answer questions. Due to patient's history of oral surgery and speech impairment as well as patient being deaf most conversation was through written means. Patient underwent imaging of the brain, cervical spine, pelvis, shoulder, abdomen due to frequent falls and concern for injuries. Patient was negative for acute findings. Patient will be discharged to [facility] with orders for physical therapy, Occupational Therapy, speech therapy. Physical Exam Const alert, oriented x3 and no apparent distress General Appearance: cooperative Orientation / Consciousness: oriented to person and oriented to place HEENT normocephalic and head/scalp atraumatic Eyes conjunctivae normal and no scleral icterus Neck full ROM and supple Resp normal respiratory effort, normal air movement and clear to auscultation bilaterally Effort and Inspection: able to speak in complete sentences and symmetric chest movement Cardio regular rate, regular rhythm, S1 normal heart sound, S2 normal heart sound and peripheral pulses 2+ throughout GI normal to inspection, nondistended, normoactive bowel sounds, soft to palpation and non-tender Extremity normal to inspection, full ROM and no clubbing, cyanosis or edema Skin no rashes or lesions noted, no wounds and skin turgor normal Neuro moves all extremities, no focal motor deficits and no sensory deficits noted Sensorium / Orientation: alert Psych cooperative and affect normal Speech: minimal and slurred Weight / BMI Weight Weight: 131 lb 6.328 oz Body Mass Index (BMI) 22.6 ABG / Lab / Microbiology Data Result Diagrams: 03/21/21 06:30 03/21/21 06:30 Microbiology: Microbiology 03/15/21 12:00 Blood Culture (Wb) - Right Hand Blood Culture - Final GNR lactose director of industrial relations 03/15/21 09:15 Blood Culture (Wb) - Left Hand Blood Culture - Final Klebsiella pneumoniae sp pneum 03/15/21 10:00 Urine, Catheterized Urine Culture - Final Klebsiella pneumoniae sp pneum 03/15/21 09:21 Nasal Secretion SARS-CoV-2 Antigen (Rapid) - Final D/C Instructions Discharge Diet: Low fat / Low cholesterol Discharge Activity: Return to Normal Activity Call your doctor if you observe: Inability to urinate, Inability to have a bowel movement, Dizziness and Fainting spells Meaningful Use Info Meaningful Use Diagnoses (Choose all that apply): None applicable Discharge Plan Admission Admit Date/Time: 03/15/21 11:27 Primary Reason for Your Visit: Encephalopathy, Bacteremia Attending Provider: Kyle Hughes Primary Care Provider: Mary Krueger Consulting Providers: Dakota Kaminski ; Jose D Rose ; Ciaran Killian ; Ray Pryor ; Aletha Pickering ; Dakota Rivera ; William Kerr ; Kael Meredith ; Moncho Sanz ; Sherie Schwartz BIKE ASSEMBLER Discharge Orders/Prescriptions Prescriptions: New ciprofloxacin HCl 500 mg Tablet 500 mg PO Q18H Qty: 1 RF: 0 ferrous sulfate [FeroSul] 325 mg (65 mg iron) Tablet 325 mg PO QODAY@0800 Qty: 0 RF: 0 Ensure Compact Liquid 118 ml PO TIDCM Qty: 0 RF: 0 Continued pantoprazole 40 mg tablet,delayed release (DR/EC) 40 mg PO DAILY RF: 0 citalopram 10 mg tablet 10 mg PO DAILY RF: 0 carbidopa-levodopa 50-200 mg tablet extended release 1 tab PO TID RF: 0 cyanocobalamin (vitamin B-12) 1,000 mcg Capsule 1,000 mcg PO DAILY RF: 0 atorvastatin 20 mg tablet 20 mg PO DAILY Qty: 90 RF: 3 amlodipine 10 mg tablet 10 mg PO DAILY Qty: 90 RF: 3 Referrals / Follow Up: Mary Krueger DO [Primary Care Provider] - Within 2 Weeks Chaparrita Maher MD [STAFF PHYSICIAN] - Within 2 Weeks Aletha Pickering MD [STAFF PHYSICIAN] - 04/20/22 2:30 pm Disposition Disposition (needs filled in before D/C Order can be placed): Shelter Facility Documented by User: Dr. Kyle Hughes MD 03/22/21 16:58 Providers Date of Admission: 03/15/21 Reason For Visit: AMS RHABDOMYOLYSIS Medications at Discharge Home Medications pantoprazole 40 mg tablet,delayed release 40 mg PO DAILY 01/26/18 carbidopa ER 50 mg-levodopa 200 mg tablet,extended release 1 tab PO TID 03/08/19 citalopram 10 mg tablet 10 mg PO DAILY 03/08/19 atorvastatin 20 mg tablet 20 mg PO DAILY #90 tab 03/25/20 amlodipine 10 mg tablet 10 mg PO DAILY #90 tab 03/12/21 cyanocobalamin (vitamin B-12) 1,000 mcg PO DAILY 03/15/21 ciprofloxacin HCl 500 mg PO Q18H #1 tab 03/22/21 ferrous sulfate [FeroSul] 325 mg PO QODAY@0800 #0 tab 03/22/21 food supplemt, lactose-reduced [Ensure Compact] 118 ml PO TIDCM #0 ml 03/22/21 Hospital Course Summary of Care Provided Hospital Course: This patient was seen in conjunction with GUCCI Morgan. I have independently interviewed and examined the patient and reviewed pertinent history, examination findings, laboratory and plan of management. I have reviewed the note and agree with the documented findings with the few additional points. In brief, patient was admitted for acute encephalopathy and fall. Acute encephalopathy probably multiple etiologies, metabolic from rhabdomyolysis, electrolyte abnormality and infection. The patient denied burning micturition but UA shows 3+ bacteria, LE positive nitrite negative. Empirically patient was started on IV ceftriaxone which was sent yesterday but changed to Cipro because of concern of hemolytic anemia and thrombocytopenia. Blood and urine culture shows Klebsiella pneumoniae. Patient has leukocytosis, lactic acidosis 2.7, high CK and isolated troponin. EKG low voltage nondiagnostic. Patient was comanaged with ID, aquatic scientist, chiller technician. Acute kidney injury: Managed with IV fluid and antibiotic as mentioned above. Kidney function, creatinine improved from 4.02 to 1.26. 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 It seems her peripheral blood smear is more consistent with splenectomy, immunocompromised s puckett with spherocytes. She had normal platelet count in 2019. Most probably, bone marrow suppression from sepsis and possible from antibiotic, cephalosporin. Rocephin was discontinued started on Cipro. Anemia most likely from bone marrow suppression. No evidence for iron or B12 deficiency. LDH mildly elevated. Direct antiglobulin test negative. Patient advised to follow-up with Dr. Pickering after discharge.. Altered mental status, TIA I offered her MRI brain but she might have contrain dication she had upper palate reconstruction with metal. In the meantime her mental status improved.CT head did not show acute change with mucosal thickening right maxillary sinus. ID consult reviewed for bacteremia due to Klebsiella from complicated UTI. Treated with Cipro EEG did not show any epileptiform discharges and reported unremarkable. MARLINE improved. Advised incentive spirometry. Hypokalemia improved Patient given prescription for 1 more dose of Cipro, adjusted to creatinine clearance. Total time of the visit including total time spent in counseling or coordination of care, (more than 50% of the total time, spent in obtaining medical information from nurses and other ancillary care providers,explaining to the patient about labs, imaging, diagnosis and management), , review of labs and imaging is 30 minutes. I have discussed my assessment with GUCCI Morgan and orders have been reviewed. According to her living will, patient is DNR CC arrest with no intubation Physical Exam Narrative Seen and examined. No change in clinical condition. General: Awake and alert and oriented x3. HEENT: Atraumatic, PERRLA, EOMI, Normocephalic Oral: Oral mucosa moist. Patient had upper palate surgery and facial reconstruction. Correction: Mild lower lip bruise since admission, healing Neck: Supple, No JVD, Negative Carotid Bruits Lungs: Air entry diminished in bilateral lung bases. No crepitation/rhonchi Cardiovascular: Regular rate, Regular Rhythm, Normal S1, Normal S2, No murmurs Abdomen: On modified dysphagia diet. Bowel Sounds Present, Soft, Non Tender, Non-Distended : No renal angle tenderness. No suprapubic tenderness. Extremities: No edema, Capillary Refill Less than 3 Seconds Skin: Bruise over right lower leg, healing. Patient has surgical scar over right thigh and right leg for skin graft. Musculoskeletal: Mild weakness mild weakness of both lower extremity, right more than left. No Tenderness to Palpation of Joints or Extremities Neurological: Cranial nerves II-XII grossly intact, no obvious lateralization sign. Psych/Mental Status: Flat affect ABG / Lab / Microbiology Data Result Diagrams: 03/21/21 06:30 03/21/21 06:30 Discharge Plan Admission Admit Date/Time: 03/15/21 11:27 Primary Reason for Your Visit: Encephalopathy, Bacteremia Attending Provider: Kyle Hughes Primary Care Provider: Mary Krueger Consulting Providers: Dakota Kaminski ; Jose D Rose ; Ciaran Martinez ; Ray Pryor ; Aletha Pickering ; Dakota Rivera ; William Kerr ; Kael Meredith ; Moncho Sanz ; Sherie Schwartz BIKE ASSEMBLER Discharge Orders/Prescriptions Prescriptions: New ciprofloxacin HCl 500 mg Tablet 500 mg PO Q18H Qty: 1 RF: 0 ferrous sulfate [FeroSul] 325 mg (65 mg iron) Tablet 325 mg PO QODAY@0800 Qty: 0 RF: 0 Ensure Compact Liquid 118 ml PO TIDCM Qty: 0 RF: 0 Continued pantoprazole 40 mg tablet,delayed release (DR/EC) 40 mg PO DAILY RF: 0 citalopram 10 mg tablet 10 mg PO DAILY RF: 0 carbidopa-levodopa 50-200 mg tablet extended release 1 tab PO TID RF: 0 cyanocobalamin (vitamin B-12) 1,000 mcg Capsule 1,000 mcg PO DAILY RF: 0 atorvastatin 20 mg tablet 20 mg PO DAILY Qty: 90 RF: 3 amlodipine 10 mg tablet 10 mg PO DAILY Qty: 90 RF: 3 Referrals / Follow Up: Mary Krueger DO [Primary Care Provider] - Within 2 Weeks Chaparrita Maher MD [STAFF PHYSICIAN] - Within 2 Weeks Aletha Pickering MD [STAFF PHYSICIAN] - 04/20/22 2:30 pm Disposition Disposition (needs filled in before D/C Order can be placed): Shelter Facility Charges/Coding Visit Charges Inpatient E&M: 66670 Disch Hosp
--- NOTE | 2021-03-22 09:45 | CASEMGMT ---
SCOTT faxed updates to Bernadine at [facility]. SCOTT received a call from Bernadine at [facility] and she received insurance authorization for patient. SCOTT notified GUCCI Zaragoza. Plan: d/c to [facility] under skilled level of care on a convalescent stay. Kelli Gonzalez COMPLEX MANAGER JUANA
[2021-03-22] MEDS: Ferrous Sulfate 325 MG Tablet PO (09:52)
[2021-03-22] MEDS: Pantoprazole Sodium 40 MG Tablet PO (09:52)
--- NOTE | 2021-03-22 10:21 | PHA.DC.MR ---
Pharmacy Service has performed discharge medication reconciliation for this patient. The patient's discharge medication list was reviewed for discrepancies and discrepancies were resolved. Home Medications pantoprazole 40 mg tablet,delayed release 40 mg PO DAILY 01/26/18 carbidopa ER 50 mg-levodopa 200 mg tablet,extended release 1 tab PO TID 03/08/19 citalopram 10 mg tablet 10 mg PO DAILY 03/08/19 atorvastatin 20 mg tablet 20 mg PO DAILY #90 tab 03/25/20 amlodipine 10 mg tablet 10 mg PO DAILY #90 tab 03/12/21 cyanocobalamin (vitamin B-12) 1,000 mcg PO DAILY 03/15/21 ciprofloxacin HCl 500 mg PO Q18H #1 tab 03/22/21 ferrous sulfate [FeroSul] 325 mg PO QODAY@0800 #0 tab 03/22/21 food supplemt, lactose-reduced [Ensure Compact] 118 ml PO TIDCM #0 ml 03/22/21
--- NOTE | 2021-03-22 11:38 | CASEMGMT ---
SCOTT faxed orders to [facility]. Completed convalescent on HENS. SCOTT arranged for patient to get picked up at 13:00 via cot by [facility]. SCOTT faxed negative COVID test to [facility] and also wrote on fax face sheet the diamond picker time of 13:00. SCOTT also called [facility] and left a message for Bernadine letting her know patient will get picked up at 1p. SCOTT also notified RN, patient's daughter Crsi, and accredited legal secretary. Plan: d/c to [facility] under skilled level of care on a convalescent stay. [facility] transported via cot. Kelli Gonzalez MECHANICAL SYSTEM TECHNICIAN JUANA
--- NOTE | 2021-03-22 11:48 | NURSING ---
Report called to [facility] nurse Van for pt to be d/c there.
--- NOTE | 2021-03-22 13:22 | NURSING ---
This RN reviewed SN charting
[2021-03-23 13:11] LABS: Pathologist Review Reviewed
== END 2021-03-22 13:19 | disposition skilled nursing facility (03) | DRG 871 ==
LOC: ED 11:36 → PCU 11:41
PROVIDERS: Internal Medicine Hematology & Oncology; Physician Assistant; Admitting Provider Internal Medicine; Emergency Provider Emergency Medicine; PCP Internal Medicine; Visit Provider Internal Medicine
DX: A41.9 Sepsis, unspecified organism (principal); G93.41 Metabolic encephalopathy; M62.82 Rhabdomyolysis; N30.00 Acute cystitis without hematuria; N17.9 Acute kidney failure, unspecified; D84.89 Other immunodeficiencies; E86.0 Dehydration; G20 Parkinson's disease; S43.101A Unspecified dislocation of right acromioclavicular joint, initial encounter; Z66 Do not resuscitate; B96.1 Klebsiella pneumoniae [K. pneumoniae] as the cause of diseases classified elsewhere; D69.6 Thrombocytopenia, unspecified; Z90.81 Acquired absence of spleen; Z85.818 Personal history of malignant neoplasm of other sites of lip, oral cavity, and pharynx; Z85.89 Personal history of malignant neoplasm of other organs and systems; D58.0 Hereditary spherocytosis; H91.90 Unspecified hearing loss, unspecified ear; R79.89 Other specified abnormal findings of blood chemistry; E87.6 Hypokalemia; W18.30XA Fall on same level, unspecified, initial encounter; Y93.89 Activity, other specified; Y92.099 Unspecified place in other non-institutional residence as the place of occurrence of the external cause; Y99.9 Unspecified external cause status
CPT/HCPCS: 36415; 70450; 71045; 72125; 72170; 73030; 74176; 80048; 80053; 81001; 82550; 82607; 82728; 83010; 83550; 83605; 83615; 83735; 84100; 84484; 85025; 85045; 86880; 87040; 87077; 87086; 87088; 87186; 87426; 92526; 92610; 93005; 95819; 97110; 97162; 97166; 97530; 97535; 99251; 99285; J7030; J7040; A4216; G0463; J0744

== ENCOUNTER → 2021-04-30 10:06 | Outpatient (CLI) | payer MEDICARE, SELFPAY ==
--- NOTE | 2021-04-30 10:11 | ECHOD_ITS ---
Reason For Study: Arrhythmia Procedure This was a 2D Doppler, Color Flow transthoracic echocardiogram. The exam was of adequate technical quality. Exam performed in department. Left Ventricle Normal LV size. Left ventricular systolic function is normal. The estimated ejection fraction is 70 %. Diastolic function is indeterminate. No regional wall motion abnormalities noted. Right Ventricle Normal RV size. Normal systolic function. Atria The left atrium is mildly enlarged. Normal right atrium. No doppler evidence for ASD. Mitral Valve There is no mitral annular calcification. Normal mitral valve. Trivial mitral valve insufficiency. Tricuspid Valve Normal tricuspid valve. Mild tricuspid valve insufficiency. Right ventricular systolic pressure estimated to be 24 mmHg. Aortic Valve Trisinus/trileaflet aortic valve. Mild diffuse aortic valve thickening. Mild (1+) aortic valve insufficiency. Pulmonic Valve The pulmonic valve is not well visualized. Trivial pulmonic valve insufficiency. Great Vessels Mildly dilated aortic root. Pericardium/Pleural No pericardial effusion. MMode/2D Measurements & Calculations LVIDd: 3.9 cm IVSd: 1.1 cm Ao root diam: 4.0 cm LVIDs: 2.2 cm LVPWd: 1.1 cm LA dimension: 2.6 cm FS: 44.9 % LAV(MOD-bp): 38.6 ml LA A4 area: 13.2 cm2 LAV(MOD-bp) Indexed: 24.0 ml/m2 LAV(MOD-sp2): 49.5 ml LAV(MOD-sp4): 30.0 ml Time Measurements MV dec time: 0.32 sec Doppler Measurements & Calculations MV E max rodney: 51.2 cm/sec Lat Peak E' Rodney: 3.4 cm/sec Med Peak E' Rodney: 3.9 cm/sec MV A max rodney: 104.6 cm/sec E/E' lat: 15.3 E/E' med: 13.2 MV E/A: 0.49 MV V2 max: 138.7 cm/sec MV P1/2t max rodney: 79.9 cm/sec Ao V2 max: 128.9 cm/sec MV max P.7 mmHg MV P1/2t: 76.7 msec Ao max P.6 mmHg MV V2 mean: 71.3 cm/sec MV dec slope: 305.3 cm/sec2 MV mean P.5 mmHg MVA(P1/2t): 2.9 cm2 MV V2 VTI: 24.4 cm AI max rodney: 466.9 cm/sec LV V1 max: 119.2 cm/sec PA V2 max: 91.5 cm/sec AI max P.3 mmHg LV V1 max P.7 mmHg AI dec slope: 295.3 cm/sec2 AI P1/2t: 463.0 msec TR max rodney: 226.7 cm/sec TR max P.6 mmHg ECHO/Echo Complete Interpretation Summary Left ventricular systolic function is normal. The estimated ejection fraction is 70 %. The left atrium is mildly enlarged. Trivial mitral valve insufficiency. Mild tricuspid valve insufficiency. Mild diffuse aortic valve thickening. Mild (1+) aortic valve insufficiency. Trivial pulmonic valve insufficiency. Right ventricular systolic pressure estimated to be 24 mmHg. Diastolic function is indeterminate. Ordering Physician: Barron Jung Referring Physician: Mary Krueger Performed By: Lucho Rodriguez RCS
== END ==
PROVIDERS: PCP Internal Medicine; Referring Provider Internal Medicine; Visit Provider Internal Medicine
DX: I36.1 Nonrheumatic tricuspid (valve) insufficiency (principal); R77.8 Other specified abnormalities of plasma proteins; I49.1 Atrial premature depolarization; I49.3 Ventricular premature depolarization; E78.5 Hyperlipidemia, unspecified; I10 Essential (primary) hypertension
CPT/HCPCS: 93306

== ENCOUNTER → 2023-02-08 | Outpatient (CLI) | payer MEDICARE, SELFPAY ==
[2023-02-08 13:22] LABS: Hematocrit 30.9 % (37-47); Hemoglobin 9.4 g/dL (12.0-15.0); Mean Corp Hgb Conc 30.4 g/dL (32-36); Mean Corpuscular Hgb 25.1 pg (27.0-32.0); Mean Corpuscular Volume 82.6 fL (81-99); Mean Platelet Vol. 8.8 fl (6.2-12.0); Platelet Count 366 K/mm3 (150-450); RBC Distribution Width CV 16.4 % (11.6-14.6); RBC Distribution Width SD 49.6 fl (35.1-43.9); Red Blood Count 3.74 M/mm3 (4.2-5.4); White Blood Count 6.4 K/mm3 (4.4-11.0)
[2023-02-08 13:50] LABS: Anion Gap 3 (5-15); BUN 25 mg/dL (7-18); BUN/Creat Ratio 17.1 RATIO (10-20); Calcium,Total 9.3 mg/dL (8.5-10.1); Chloride 112 mmol/L (98-107); Creatinine, Serum 1.46 mg/dL (0.55-1.02); EST Glomerular Filtration Rate 36 mL/min (>60); Est Glom Filt Rate - Afr Amer 44 mL/min (>60); Glucose 89 mg/dL (74-106); Potassium 3.9 mmol/L (3.5-5.1); Sodium Level 141 mmol/L (136-145)
== END | disposition home or self-care (01) ==
LOC: PSN 12:33
PROVIDERS: PCP Internal Medicine; Referring Provider Otolaryngology; Visit Provider Otolaryngology
DX: Z01.818 Encounter for other preprocedural examination (principal)
CPT/HCPCS: 36415; 80048; 85027; 93005